=== PATIENT | male | born 1975 | race Caucasian/White ===

== ENCOUNTER 2023-03-26 12:11 | Emergency (ER) | payer OTHER, SELFPAY ==
[2023-03-26 12:20] VITALS: BP 116/97; PULSE 68; RESP 20; TEMP 36.6; O2SAT 98; BMI 34.4
--- NOTE | 2023-03-26 12:26 | PC.NURSE ---
SUPERFICIAL PUNCTURE WOUND TO BOTTOM OF RIGHT FOOT. BLEEDING CONTROLLED
--- NOTE | 2023-03-26 12:54 | XR_ITS ---
The [address] [address] Patient Name: PAMELA PERKINS MRN: [id number] date: 1975 Sex: M Assigned Patient Location: ER Current Patient Location: ED.MAIN Accession/Order Number: [id number] Exam Date: 03/26/2023 12:56 Report Date: 03/26/2023 13:27 At the request of: THUAN ALMONTE Procedure: XR foot RT min 3V EXAM: XR foot RT min 3V HISTORY: stepped on glass, laceration COMPARISON: None. TECHNIQUE: 3 views right foot. FINDINGS: No fracture or dislocation. No radiopaque foreign body is seen. Slight soft tissue edema laterally. Minimal degenerative change of the great toe MTP joint. Small plantar calcaneal enthesophyte. XR/XR foot RT min 3V IMPRESSION: Mild edema without fracture or radiopaque foreign body right foot. Electronically authenticated by: ASTRID SANDOVAL Date: 03/26/2023 13:27
--- NOTE | 2023-03-26 13:08 | ED.LOWEXI1 ---
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 He said that he felt pain in the right foot while walking barefoot at home. He pulled out a piece of glass from the bottom of the foot. Bleeding was apparently worse immediately after the injury but has lessened by now. His tetanus is up to date. Related Data Previous Rx's Medication Instructions Recorded cephalexin 500 mg capsule 500 mg PO QID 7 days #28 caps 03/26/23 Allergies Allergy/AdvReac Type Severity Reaction Status Date / Time No Known Drug Allergies Allergy Verified 03/26/23 12:24 Exam Narrative Exam Narrative: Nurses notes and vital signs reviewed and patient is not hypoxic. afebrile General: Well-appearing and in no apparent distress. Skin: Warm, dry, no pallor noted. Cardiovascular: no peripheral perfusion. Respiratory: No accessory muscle use or respiratory distress. Musculoskeletal: 3mm linear puncture wound to the plantar surface of the right foot. I cannot see or palpate any foreign material in or around the puncture wound. Right foot with normal ROM, no erythema or streaking. no lower extremity edema/swelling Neurological: A&O x4. Moves all extremities. Sensation intact. Psychiatric: Cooperative and interactive. Normal mood and affect. Constitutional Vital Signs, click to edit/add: Last Vital Signs Temp 98 F 03/26/23 12:20 Pulse 68 03/26/23 12:20 Resp 20 03/26/23 12:20 BP 116/97 H 03/26/23 12:20 Pulse Ox 98 03/26/23 12:20 O2 Del Method Room Air 03/26/23 12:20 Course Vital Signs Vital signs: Vital Signs Temperature 98 F 03/26/23 12:20 Pulse Rate 68 03/26/23 12:20 Respiratory Rate 20 03/26/23 12:20 Blood Pressure 116/97 H 03/26/23 12:20 Pulse Oximetry 98 03/26/23 12:20 Oxygen Delivery Method Room Air 03/26/23 12:20 Temperature 98 F 03/26/23 12:20 Pulse Rate 68 03/26/23 12:20 Respiratory Rate 20 03/26/23 12:20 Blood Pressure 116/97 H 03/26/23 12:20 Pulse Oximetry 98 03/26/23 12:20 Oxygen Delivery Method Room Air 03/26/23 12:20 MDM - Extremity Injury (Lower) MDM Narrative Medical decision making narrative: bleeding controlled - I applied a bandage to the wound after I cleaned it with soap and water. Xrays of the right foot were unremarkable. Patient discharged home with prescription for keflex and instructed to keep the wound covered, clean and dry. Imaging Data xr foot: Attestation: I personally reviewed and interpreted this imaging study as follows: My impression: LEFT FOOT XRAYS, 4V - no fracture or foreign material Discharge Plan Discharge Chief Complaint: Extremity Injury, Lower Clinical Impression: Puncture wound of foot Patient Disposition: Home, Self-Care Time of Disposition Decision: 13:14 Prescriptions / Home Meds: New cephalexin 500 mg capsule 500 mg PO QID 7 Days Qty: 28 0RF Instructions: Puncture Wound in the Foot (ED) Stand Alone Forms: Portal Instructions Referrals: Shun Encarnacion MD [Primary Care Provider] - 1 week
== END 2023-03-26 13:38 | disposition home or self-care (01) ==
PROVIDERS: Emergency Provider Emergency Medicine; PCP Family Medicine
DX: S91.331A Puncture wound without foreign body, right foot, initial encounter (principal); W25.XXXA Contact with sharp glass, initial encounter
CPT/HCPCS: 73630; 99283

== ENCOUNTER 2024-06-20 12:52 | Outpatient (RCR) | payer OTHER, SELFPAY | END 2024-07-11 10:03 | disposition home or self-care (01) | LOC: PT 12:52 | PROVIDERS: PCP Family Medicine; Visit Provider Family Medicine | DX: M54.50 Low back pain, unspecified (principal) | CPT/HCPCS: 97012; 97110; 97113; 97140; 97162 ==

== ENCOUNTER 2024-10-18 09:24 | Outpatient (OUT) | payer MEDICAID, SELFPAY ==
--- OUTSIDE RECORDS SUMMARY | 2024-10-18 09:45 | XMS_ITS | CCD ---
Author Organization [facility] Care Team Providers Care Radio Frequency Design Engineer Name Role Phone POLA, DR SHUN Power Primary Care Unavailable ADDY, DR HANNAH Weaver Admitting Unavailable ADDY, DR HANNAH Weaver Attending Unavailable ADDY, DR HANNAH Weaver Consulting Unavailable NADERER, DR SHUN Power Admitting Unavailable NADANTONELLA, DR SHUN Power Attending Unavailable POLA, DR SHUN Power Primary Care Unavailable POLA, DR SHUN Power Consulting Unavailable POLA, DR SHUN Power Primary Care Unavailable ADDY, DR HANNAH Weaver Admitting Unavailable ADDY, DR HANNAH Weaver Attending Unavailable ADDY, DR HANNAH Weaver Consulting Unavailable DANIELA, PATI Consulting Unavailable NADJORDONR, DR SHUN Power Primary Care Unavailable JARON, ASÚL Admitting Unavailable JARON, SAÚL Attending Unavailable JARON, SAÚL Consulting Unavailable Shun Escalona MD Primary Care Provider [phone] SHUN ESCALONA Attending Unavailable NADERER, SHUN Attending Unavailable RANJEETR, SHUN Attending Unavailable POLA, SHUN Attending Unavailable Medications Current Medications Medication Drug Class(es) Dates Sig (Normalized) Sig (Original) acetaminophen 325 mg / HYDROcodone bitartrate 5 mg oral tablet (2 sources) Opioid Agonist Start: 05-24-2024 End: 05-31-2024 take 1 tablet by mouth four times daily as needed for pain HYDROcodone-acetamin ophen ([place]) 5-325 MG tablet Indications: 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 pain Take 1 tablet by mouth 4 (four) times a day as needed for severe pain for up to 7 days 28 tablet 05/24/2024 05/31/2024 Active acetaminophen 325 mg / oxyCODONE hydrochloride 5 mg oral tablet (9 sources) Opioid Agonist Start: 10-02-2024 End: 10-24-2024 take 1 tablet by mouth four times daily as needed for pain oxyCODONE-acetaminop hen (Percocet) 5-325 MG tablet Indications: 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 pain Take 1 tablet by mouth 4 (four) times a day as needed for moderate pain or severe pain for up to 15 days 60 tablet 10/09/2024 10/24/2024 Active Start: 09-10-2024 End: 09-17-2024 take 1 tablet by mouth four times daily as needed for pain oxyCODONE-acetaminophen (Percocet) 5-325 MG tablet Indications: 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 pain Take 1 tablet by mouth 4 (four) times a day as needed for moderate pain or severe pain for up to 7 days 28 tablet 09/10/2024 09/17/2024 Active Start: 08-20-2024 End: 08-27-2024 take 1 tablet by mouth four times daily as needed for pain oxyCODONE-acetaminophen (Percocet) 5-325 MG tablet Indications: 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 pain Take 1 tablet by mouth 4 (four) times a day as needed for moderate pain or severe pain for up to 7 days 28 tablet 08/20/2024 08/27/2024 Active Start: 07-18-2024 End: 08-07-2024 take 1 tablet by mouth four times daily as needed for pain oxyCODONE-acetaminophen (Percocet) 5-325 MG tablet Indications: 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 pain Take 1 tablet by mouth 4 (four) times a day as needed for moderate pain or severe pain for up to 7 days 28 tablet 07/31/2024 08/07/2024 Active baclofen 20 mg oral tablet (3 sources) gamma-Aminobutyric Acid-ergic Agonist Start: 03-20-2024 End: 05-24-2024 take 1 tablet by mouth three times daily as needed for muscle spasms baclofen (Lioresal) 20 MG tablet Indications: DDD (degenerative disc disease), cervical Take 1 tablet (20 mg) by mouth 3 (three) times a day as needed for muscle spasms 90 tablet 2 03/20/2024 05/24/2024 Discontinued Blood Glucose Monitoring Suppl (Blood Glucose Monitor System) w/Device kit (14 sources) Start: 03-19-2024 Blood Glucose Monitoring Suppl (Blood Glucose Monitor System) w/Device kit Indications: Type 2 diabetes mellitus with hyperglycemia, without long-term current use of insulin ([facility]) 1 each Daily 1 kit 03/19/2024 Active celecoxib 200 mg oral capsule (14 sources) Nonsteroidal Anti-inflammatory Drug Start: 05-24-2024 End: 10-09-2024 take 1 capsule by mouth once daily at mealtime celecoxib (CeleBREX) 200 MG capsule Indications: 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 pain TAKE 1 CAPSULE BY MOUTH DAILY WITH FOOD 30 capsule 3 10/09/2024 Active glipiZIDE 10 mg oral tablet (14 sources) Sulfonylurea Start: 04-13-2024 End: 04-13-2025 take 1 tablet by mouth once daily glipiZIDE (Glucotrol) 10 MG tablet Indications: Type 2 diabetes mellitus with hyperglycemia, without long-term current use of insulin ([facility]) Take 1 tablet (10 mg) by mouth Daily 30 tablet 11 04/13/2024 04/13/2025 Active lisinopril 20 mg oral tablet (14 sources) Angiotensin Converting Enzyme Inhibitor Start: 05-21-2024 take 1 tablet by mouth once daily lisinopril 20 MG tablet Indications: Essential hypertension, benign ([facility]) Take 1 tablet (20 mg) by mouth Daily 30 tablet 11 05/21/2024 Active 24 hr metFORMIN hydrochloride 500 mg extended release oral tablet (14 sources) Biguanide Start: 01-17-2024 End: 06-06-2025 take 1 tablet by mouth once daily metFORMIN XR (Glucophage-XR) 500 MG 24 hr tablet Indications: Type 2 diabetes mellitus with hyperglycemia, without long-term current use of insulin ([facility]) Take 1 tablet (500 mg) by mouth Daily 30 tablet 11 06/06/2024 06/06/2025 Active nabumetone 500 mg oral tablet (3 sources) Nonsteroidal Anti-inflammatory Drug Start: 08-03-2023 End: 05-24-2024 take 1 tablet by mouth in the morning nabumetone (Relafen) 500 MG tablet Take 500 mg by mouth in the morning and 500 mg before bedtime. 08/03/2023 05/24/2024 Discontinued PARoxetine hydrochloride 20 mg oral tablet (15 sources) Serotonin Reuptake Inhibitor Start: 07-18-2024 take 1 tablet by mouth in the morning PARoxetine (Paxil) 20 MG tablet Indications: MDD (major depressive disorder), recurrent episode, moderate (CMS/HCC) Take 1 tablet (20 mg) by mouth in the morning. 30 tablet 5 07/18/2024 Active Start: 05-24-2024 End: 07-18-2024 take 1 tablet by mouth in the morning PARoxetine (Paxil) 10 MG tablet Indications: MDD (major depressive disorder), recurrent episode, moderate (CMS/HCC) Take 1 tablet (10 mg) by mouth in the morning. 30 tablet 5 05/24/2024 07/18/2024 Discontinued (Reorder) sertraline 25 mg oral tablet (3 sources) Serotonin Reuptake Inhibitor Start: 03-20-2024 End: 05-24-2024 take 1 tablet by mouth once daily sertraline (Zoloft) 25 MG tablet Indications: MDD (major depressive disorder), recurrent episode, moderate (CMS/HCC) Take 1 tablet (25 mg) by mouth Daily 30 tablet 5 03/20/2024 05/24/2024 Discontinued tiZANidine 4 mg oral tablet (14 sources) Central alpha-2 Adrenergic Agonist Start: 07-24-2024 End: 10-09-2024 take 1 tablet by mouth every six hours as needed for muscle spasms tiZANidine (Zanaflex) 4 MG tablet Indications: 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 pain TAKE 1 TABLET BY MOUTH EVERY 6 HOURS NEEDED FOR MUSCLE SPASMS 30 tablet 3 10/09/2024 Active Start: 05-24-2024 take 1 tablet by ronnie th every six hours for muscle spasms tiZANidine (Zanaflex) 4 MG tablet Indications: 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 pain Take 1 tablet (4 mg) by mouth every 6 (six) hours if needed for muscle spasms 30 tablet 2 05/24/2024 Active Problems Active Problems Problem Classification Problem Date Documented Date Episodic/Chronic Anxiety disorders (20 sources) Generalized anxiety disorder; Translations: [Generalized anxiety disorder] Onset: 03-19-2024 03-19-2024 Chronic Diabetes mellitus with complications (20 sources) Type 2 diabetes mellitus with hyperglycemia; Translations: [Hyperglycemia due to type 2 diabetes mellitus] Onset: 12-09-2021 Chronic Disorders of lipid metabolism (14 sources) Dyslipidemia; Translations: [Hyperlipidemia, unspecified] Onset: 03-19-2024 03-19-2024 Chronic Esophageal disorders (15 sources) Gastro-esophageal reflux disease without esophagitis; Translations: [Gastroesophageal reflux disease] Onset: 08-18-2021 03-19-2024 Chronic Essential hypertension (20 sources) Essential (primary) hypertension; Translations: [Benign essential hypertension] Onset: 08-18-2021 03-19-2024 Chronic Mood disorders (20 sources) Moderate recurrent major depression; Translations: [Major depressive disorder, recurrent, moderate] Onset: 03-19-2024 03-19-2024 Chronic Nutritional deficiencies (14 sources) Vitamin D deficiency; Translations: [Vitamin D deficiency, unspecified] Onset: 03-19-2024 03-19-2024 Chronic Spondylosis; intervertebral disc disorders; other back problems (20 sources) Degeneration of lumbar intervertebral disc; Translations: [DDD (degenerative disc disease), lumbar] Onset: 03-19-2024 03-19-2024 Chronic Unclassified (2 sources) CONTACT W/AND (SUSP) EXPOS COVID-19; Translations: [CONTACT W/AND (SUSP) EXPOS COVID-19] Onset: 06-02-2022 Viral infection (1 source) COVID-19; Translations: [COVID-19] Onset: 06-02-2022 Past or Other Problems Problem Classification Problem Date Documented Da te Episodic/Chronic E Codes: Cut/pierceb (1 source) Contact with knife, initial encounter; Translations: [CONTACT WITH KNIFE INITIAL ENC] Onset: 12-30-2021 Episodic Immunizations and screening for infectious disease (1 source) Encounter for immunization; Translations: [ENCOUNTER FOR IMMUNIZATION] Onset: 12-30-2021 Episodic Nonspecific chest pain (3 sources) Precordial pain; Translations: [PRECORDIAL PAIN] Onset: 08-16-2021 Episodic Open wounds of extremities (4 sources) Puncture wound without foreign body of left hand, initial encounter; Translations: [PUNCTURE WOUND W/O FB LT HAND INIT] Onset: 12-28-2021 Episodic Other aftercare (1 source) Other chcf (current) drug therapy; Translations: [OTH RETIREMENT CURRENT DRUG THERAPY] Onset: 12-30-2021 Episodic Other aftercare (1 source) terminal press operator (current) use of oral hypoglycemic drugs; Translations: [FORENSIC ACCOUNTANT USE ORAL HYPOGLYCEMIC DX] Onset: 12-30-2021 Episodic Unclassified (1 source) CONTACT W/AND (SUSP) EXPOS COVID-19; Translations: [CONTACT W/AND (SUSP) EXPOS COVID-19] Onset: 06-01-2022 Results Test Name Value Interpretation Reference Range Facility Covid-19 PCR (CVDTB)on 05-15 SARS-CoV-2 (COVID-19) RNA YVONNE+probe Ql (Unsp spec) Detected Critically abnormal NOT DETECTED [facility] Comment on above: Result Comment: This test is not yet approved or cleared by the [place] FDA. When there are no FDA-approved or cleared tests available, and other criteria are met, FDA can make tests available under an emergency access mechanism called an Emergency Use Authorization (EUA). The EUA for this test is supported by the [place] of Health and Human Service's declaration that circumstances exist to justify the emergency use of in vitro diagnostics for the detection and/or diagnosis of the virus that causes COVID-19. This EUA will remain in effect for the duration of the COVID-19 declaration justifying emergency of IVDs, unless it is terminated or revoked by the FDA (after which the test may no longer be used). Performed By: #### C VDTB #### [facility] [address] [place] [address] Dr. Abigail Flores GLYCOHEMOGLOBIN A1Con 2021 ADA RECOMMENDATION SEE BELOW Normal [facility] Comment on above: Result Comment: ADA RECOMMENDED LIMIT 4.0 - 6.0 ADA THERAPEUTIC TARGET < 7.0 ACTION SUGGESTED > 7.0 Performed By: #### A 1C #### [facility] [address] [address] [address] Abigail Flores Glucose [Mass/Vol] 246 mg/dL Normal [facility] Comment on above: Performed By: #### A 1C #### [facility] [address] [place], [place] [address] Dr. Abigail Flores HbA1c (Bld) [Mass fraction] 10.2 % Critically high 4.5-6.2 [facility] Comment on above: Performed By: #### A 1C #### [facility] [address] [place] [address] Dr. Abigail Flores CARDIAC HANNAH ADMITon 022 CK [Catalytic activity/Vol] 92 U/L Normal 55-170 [facility] Comment on above: Performed By: #### C EDWARDOM, CMP #### [facility] [address] [place] [address] Dr. Abigail Flores CK.MB [Mass/Vol] 1.09 ng/mL Normal <=2.37 [facility] Comment on above: Performed By: #### C CALLIE, CMP #### [facility] [address] [place] [address] Dr. Abigail Flores HSTROP 6.1 pg/mL Normal 4.0-42.2 [facility] Comment on above: Result Comment: CUT- OFF POINTS HAVE BEEN ESTABLISHED BASED ON THE FOURTH UNIVERSAL DEFINITIONS OF MYOCARDIAL INFARCTION. THE UPPER REFERENCE LIMIT (URL) OF TROPONIN, DEFINED THE 99TH PERCENTILE OF cTnI DISTRIBUTION IN A REFERENCE POPULATION, HAS BEEN CONFIRMED THE DECISION THRESHOLD FOR SC DIAGNOSIS. Performed By: #### C CALLIE, CMP #### [facility] [address] [place] [address] Dr. Abigail Flores KELLY 61.0 ng/mL Normal <=121.0 [facility] Comment on above: Performed By: #### C CALLIE, CMP #### [facility] [address] [place] [address] Dr. Abigail Flores CBC AUTO DIFFon 08-16-2021 BASO # 0.1 103/ul Normal 0.0-0.1 [facility] Comment on above: Performed By: #### C BC #### [facility] [address] [place] [address] Dr. Abigail Flores Basophils/100 WBC (Bld) 1.0 % Normal 0.2-2.0 [facility] Comment on above: Performed By: #### C BC #### [facility] [address] [place] [address] Dr. Abigail Flores EO # 0.3 103/ul Normal 0.0-0.7 [facility] Comment on above: Performed By: #### C BC #### [facility] [address] [place] [address] Dr. Abigail Flores Eosinophils/100 WBC (Bld) 3.3 % Normal 0.9-7.0 [facility] Comment on above: Performed By: #### C BC #### [facility] [address] [place] [address] Dr. Abigail Flores Erythrocyte distribution width (RBC) [Ratio] 12.4 % Normal 11.0-15.0 [facility] Comment on above: Performed By: #### C BC #### [facility] [address] [place] [address] Dr. Abigail Flores Hematocrit (Bld) [Volume fraction] 49.5 % Normal 42.0-54.0 [facility] Comment on above: Performed By: #### C BC #### [facility] [address] [place] [address] Dr. Abigail Flores Hemoglobin (Bld) [Mass/Vol] 16.6 g/dL Normal 14.0-18.0 [facility] Comment on above: Performed By: #### C BC #### [facility] [address] [place] [address] Dr. Abigail Flores IG # 0.03 10e3/ul Normal 0.00-0.03 [facility] Comment on above: Performed By: #### C BC #### [facility] [address] [place] [address] Dr. Abigail Flores IG % 0.4 % Normal 0.0-0.5 [facility] Comment on above: Performed By: #### C BC #### [facility] [address] [place] [address] Dr. Abigail Flores LYMPH # 3.3 103/ul Normal 1.2-3.8 [facility] Comment on above: Performed By: #### C BC #### [facility] [address] [place] [address] Dr. Abigail Flores Lymphocytes/100 WBC (Bld) 41.5 % Normal 20.5-60.0 [facility] Comment on above: Performed By: #### C BC #### [facility] [address] [place] [address] Dr. Abigail Flores MANUAL DIFF REQ NO Normal [facility] Comment on above: Performed By: #### C BC #### [facility] [address] [place] [address] Dr. Abigail Flores MCH (RBC) [Entitic mass] 29.0 pg Normal 25.9-34.0 [facility] Comment on above: Performed By: #### C BC #### [facility] [address] [place] [address] Dr. Abigail Flores MCHC (RBC) [Mass/Vol] 33.5 g/dL Normal 29.9-35.2 [facility] Comment on above: Performed By: #### C BC #### [facility] [address] [place] [address] Dr. Abigail Flores MCV (RBC) [Entitic vol] 86.5 fL Normal 80.0-94.0 [facility] Comment on above: Performed By: #### C BC #### [facility] [address] [place] [address] Dr. Abigail Flores MONO # 0.5 103/ul Normal 0.3-0.8 [facility] Comment on above: Performed By: #### C BC #### [facility] [address] [place] [address] Dr. Abigail Flores Monocytes/100 WBC (Bld) 5.9 % Normal 1.7-12.0 [facility] Comment on above: Performed By: #### C BC #### [facility] [address] [place] [address] Dr. Abigail Flores NEUT # 3.8 103/ul Normal 1.4-6.5 [facility] Comment on above: Performed By: #### C BC #### [facility] [address] [place] [address] Dr. Abigail Flores Neutrophils/100 WBC (Bld) 47.9 % Normal 43.0-75.0 [facility] Comment on above: Performed By: #### C BC #### [facility] [address] [address] [address] Abigail Flores Platelet mean volume (Bld) [Entitic vol] 9.9 fL Normal 9.5-13.5 [facility] Comment on above: Performed By: #### C BC #### [facility] [address] [place] [address] Dr. Abigail Flores PLT 217 103/ul Normal 150-450 [facility] Comment on above: Performed By: #### C BC #### [facility] [address] [place] [address] Dr. Abigail Flores RBC 5.72 106/ul Normal 4.70-6.10 [facility] Comment on above: Performed By: #### C BC #### [facility] [address] [place] [address] Dr. Abigail Flores WBC 8.0 103/ul Normal 4.0-11.0 [facility] Comment on above: Performed By: #### C BC #### [facility] [address] [place] [address] Dr. Abigail Flores PROF 14(COMP METB)on 022 Albumin [Mass/Vol] 3.8 g/dL Normal 3.5-5.0 [facility] Comment on above: Performed By: #### C CALLIE, CMP #### [facility] [address] [place] [address] Dr. Abigail Flores Albumin/Globulin [Mass ratio] 1.0 {ratio} Normal [facility] Comment on above: Performed By: #### C MADM, CMP #### [facility] [address] [place] [address] Dr. Abigail Flores ALP [Catalytic activity/Vol] 113 U/L Normal 38-126 [facility] Comment on above: Performed By: #### C MADM, CMP #### [facility] [address] [place] [address] Dr. Abigail Flores ALT [Catalytic activity/Vol] 35 U/L Normal 21-72 [facility] Comment on above: Performed By: #### C MADM, CMP #### [facility] [address] [address] [address] Abigail Flores Anion gap [Moles/Vol] 15.0 mmol/L Normal [facility] Comment on above: Performed By: #### C MADM, CMP #### [facility] [address] [address] [address] Abigail Flores AST [Catalytic activity/Vol] 8 U/L Critically low 17-59 [facility] Comment on above: Performed By: #### C MADM, CMP #### [facility] [address] [address] [address] Abigail Flores Bilirubin [Mass/Vol] 0.5 mg/dL Normal 0.2-1.3 [facility] Comment on above: Performed By: #### C MADM, CMP #### [facility] [address] [place] [address] Dr. Abigail Flores Calcium [Mass/Vol] 9.2 mg/dL Normal 8.4-10.2 [facility] Comment on above: Performed By: #### C MADM, CMP #### [facility] [address] [place] [address] Dr. Abigail Flores Chloride [Moles/Vol] 100 mmol/L Normal 98-107 [facility] Comment on above: Performed By: #### C MADM, CMP #### [facility] [address] [address] [address] Abigail Flores CO2 [Moles/Vol] 25.2 mmol/L Normal 22.0-30.0 [facility] Comment on above: Performed By: #### C MADM, CMP #### [facility] [address] [place] [address] Dr. Abigail Flores Creatinine [Mass/Vol] 0.98 mg/dL Normal 0.66-1.25 [facility] Comment on above: Performed By: #### C MADM, CMP #### [facility] [address] [address] [address] Abigail Flores EGFR-AF SWISS >60 Normal >=60 [facility] Comment on above: Performed By: #### C MADM, CMP #### [facility] [address] [address] [address] Abigail Flores EGFR-NON AF SWISS >60 Normal >=60 [facility] Comment on above: Performed By: #### C MADM, CMP #### [facility] [address] [address] [address] Abigail Flores Globulin (S) [Mass/Vol] 3.7 g/dL Normal [facility] Comment on above: Performed By: #### C MADM, CMP #### [facility] [address] [place] [address] Dr. Abigail Flores Glucose [Mass/Vol] 350 mg/dL Critically high 74-106 [facility] Comment on above: Performed By: #### C MADM, CMP #### [facility] [address] [place] [address] Dr. Abigail Flores Potassium [Moles/Vol] 4.2 mmol/L Normal 3.4-5.0 [facility] Comment on above: Performed By: #### C MADM, CMP #### [facility] [address] [place] [address] Dr. Abigail Flores Protein [Mass/Vol] 7.5 g/dL Normal 6.1-8.2 [facility] Comment on above: Performed By: #### C MADM, CMP #### [facility] [address] [place] [address] Dr. Abigail Flores Sodium [Moles/Vol] 136 mmol/L Critically low 137-145 [facility] Comment on above: Performed By: #### C MADM, CMP #### [facility] [address] [place] [address] Dr. Abigail Flores Urea nitrogen [Mass/Vol] 16.0 mg/dL Normal 9.0-20.0 [facility] Comment on above: Performed By: #### C MADM, CMP #### [facility] [address] [place] [address] Dr. Abigail Flores Urea nitrogen/Creatinine [Mass ratio] 16.3 mg/mg Normal [facility] Comment on above: Performed By: #### C [facility] #### [facility] [address] [address] [address] Abigail Flores XR CHEST 1 Von 08-16-2021 XR CHEST 1 V EXAM: XR CHEST 1 V 08/16/2021 2:14 AM EST [id number] CLINICAL STATEMENT: CHEST PAIN, UNSPECIFIED COMPARISON: No prior studies are available at the time of dictation. TECHNIQUESingle AP radiograph of the chest is submitted. FINDINGS: There is no acute airspace disease. The cardiac silhouette is normal. The costophrenic recesses are sharp. No pneumothorax. The bony elements are unremarkable. IMPRESSION: No acute cardiopulmonary process. FOLLOW-UP: Follow-up as clinically indicated. Electronically authenticated by: PATI SUAREZ Date: 2021-08-16 02:53 Normal [facility] Vital Signs Date Time Vital Sign Value Performing Clinician Faci lity 09-18-2024 10:09-0500 Body height 177.8 cm Shun Escalona MD Work Phone: [facility] 09-18-2024 10:09-0500 Body mass index (BMI) [Ratio] 32.43 kg/m2 Shun Escalona MD Work Phone: [facility] 09-18-2024 10:09-0500 Body temperature 97.5 [degF] Shun Escalona MD Work Phone: [facility] 09-18-2024 10:09-0500 Body weight 102.51 kg Shun Escalona MD Work Phone: [facility] 09-18-2024 10:09-0500 Diastolic blood pressure 70 mm[Hg] Shun Escalona MD Work Phone: [facility] 09-18-2024 10:09-0500 Heart rate 104 /min Shun Escalona MD Work Phone: [facility] 09-18-2024 10:09-0500 Respiratory rate 18 /min Shun Escalona MD Work Phone: [facility] 09-18-2024 10:09-0500 SaO2% (BldA) [Mass fraction] 98 % Shun Escalona MD Work Phone: [facility] 09-18-2024 10:09-0500 Systolic blood pressure 144 mm[Hg] Shun Escalona MD Work Phone: [facility] 07-18-2024 10:37-0500 Body height 180.3 cm Shun Escalona MD Work Phone: [facility] 07-18-2024 10:37-0500 Body mass index (BMI) [Ratio] 31.66 kg/m2 Shun Escalona MD Work Phone: [facility] 07-18-2024 10:37-0500 Body temperature 96.21 [degF] Shun Escalona MD Work Phone: [facility] 07-18-2024 10:37-0500 Body weight 102.97 kg Shun Escalona MD Work Phone: [facility] 07-18-2024 10:37-0500 Diastolic blood pressure 80 mm[Hg] Shun Escalona MD Work Phone: [facility] 07-18-2024 10:37-0500 Heart rate 91 /min Shun Escalona MD Work Phone: [facility] 07-18-2024 10:37-0500 Respiratory rate 18 /min Shun Escalona MD Work Phone: [facility] 07-18-2024 10:37-0500 SaO2% (BldA) [Mass fraction] 99 % Shun Escalona MD Work Phone: [facility] 07-18-2024 10:37-0500 Systolic blood pressure 134 mm[Hg] Shun Escalona MD Work Phone: [facility] 05-24-2024 09:16-0400 Body height 177.8 cm Shun Escalona MD Work Phone: [facility] 05-24-2024 09:16-0400 Body mass index (BMI) [Ratio] 33 kg/m2 Shun Escalona MD Work Phone: [facility] 05-24-2024 09:16-0400 Body temperature 97.81 [degF] Shun Escalona MD Work Phone: [facility] 05-24-2024 09:16-0400 Body weight 104.33 kg Shun Escalona MD Work Phone: [facility] 05-24-2024 09:16-0400 Diastolic blood pressure 82 mm[Hg] Shun Escalona MD Work Phone: [facility] 05-24-2024 09:16-0400 Heart rate 94 /min Shun Escalona MD Work Phone: [facility] 05-24-2024 09:16-0400 Respiratory rate 18 /min Shun Escalona MD Work Phone: [facility] 05-24-2024 09:16-0400 SaO2% (BldA) [Mass fraction] 95 % Shun Escalona MD Work Phone: [facility] 05-24-2024 09:16-0400 Systolic blood pressure 136 mm[Hg] Shun Escalona MD Work Phone: [facility] Encounters Encounter Date Encounter Type Care Provider Facility Start: 10-09-2024 End: 10-09-2024 Refill Shun Escalona MD Work Phone: [facility] Comment on above: 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 discogenic back pain and lower extremity pain Start: 10-02-2024 End: 10-02-2024 Orders Only Shun Escalona MD Work Phone: [facility] Comment on above: 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 discogenic back pain and lower extremity pain Start: 09-18-2024 End: 09-18-2024 Bamboo flowsheet Shun Escalona MD Work Phone: [facility] Start: 09-18-2024 End: 09-18-2024 Bamboo flowsheet Shun Escalona MD Work Phone: [facility] Start: 09-18-2024 End: 09-18-2024 Office outpatient visit 25 minutes Shun Escalona MD Work Phone: [facility] Comment on above: Type 2 diabetes yoav itus with hyperglycemia, without long-term current use of insulin (CMS/HCC) (Primary Dx); Essential hypertension, benign (CMS/HCC); 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 pain; MDD (major depressive disorder), recurrent episode, moderate (CMS/HCC); Generalized anxiety disorder (CMS/HCC) Start: 09-18-2024 End: 09-18-2024 ambulatory SHUN ESCALONA Not Available Start: 09-09-2024 End: 09-10-2024 Refill Shun Escalona MD Work Phone: [facility] Comment on above: 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 discogenic back pain and lower extremity pain Start: 08-19-2024 End: 08-20-2024 Refill Shun Escalona MD Work Phone: [facility] Comment on above: 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 discogenic back pain and lower extremity pain Start: 07-31-2024 End: 07-31-2024 Refill Shun Escalona MD Work Phone: [facility] Comment on above: 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 discogenic back pain and lower extremity pain Start: 07-18-2024 End: 07-18-2024 Bamboo flowsheet Shun Escalona MD Work Phone: [facility] Start: 07-18-2024 End: 07-18-2024 Bamboo flowsheet Shun Escalona MD Work Phone: [facility] Start: 07-18-2024 End: 07-18-2024 Office outpatient visit 25 minutes Shun Escalona MD Work Phone: [facility] Comment on above: Type 2 diabetes yoav itus with hyperglycemia, without long-term current use of insulin (CMS/HCC) (Primary Dx); Essential hypertension, benign (CMS/HCC); 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 pain; MDD (major depressive disorder), recurrent episode, moderate (CMS/HCC); Generalized anxiety disorder (CMS/HCC) Start: 07-18-2024 End: 07-18-2024 ambulatory SHUN ESCALONA Not Available Start: 05-24-2024 [facility] Start: 05-24-2024 End: [facility]-24-20[facility] Start: 05-24-2024 End: 05-24-2024 Office outpatient visit 25 minutes Shun Escalona MD Work Phone: [facility] Comment on above: Type 2 diabetes yoav itus with hyperglycemia, without long-term current use of insulin (CMS/HCC) (Primary Dx); Essential hypertension, benign (CMS/HCC); MDD (major depressive disorder), recurrent episode, moderate (CMS/HCC); Generalized anxiety disorder (CMS/HCC); 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 pain Start: 05-24-2024 End: 05-24-2024 ambulatory HSUN ESCALONA Not Available Start: 03-19-2024 Patient encounter procedure Gavin Escalona MD Work Phone: [facility] Start: 03-19-2024 End: 03-19-2024 ambulatory SHUN ESCALONA Not Available Start: 06-01-2022 End: 06-01-[address] SHUN ESCALONA Facility:[facility] Start: 12-28-2021 End: 12-28-[address] SHUN ESCALONA Facility:[facility] Start: 12-09-2021 End: 12-10-[address] SHUN ESCALONA Facility:[facility] Start: 08-16-2021 End: 08-16-[address] SHUN ESCALONA Facility:[facility] Plan of Treatment Date Care Activity Detail Author Start: 12-22-2024 Screening for malign ant neoplasm of colon [facility] Start: 12-18-2024 End: 12-18-2024 Patient encounter procedure 12/18/2024 10:00 AM EDT Office Visit [facility] [address] [place] [address] Shun Escalona MD [address] [place] [id number] [facility] Start: 09-18-2024 End: 09-18-2024 Patient encounter procedure [facility] Comment on above: Arrived Start: 07-18-2024 End: 07-18-2024 Patient encounter procedure 07/18/2024 10:45 AM EST Office Visit [facility] [address] [place] [address] Shun Escalona MD [address] [place] [phone] Arrived [facility] Comment on above: Arrived Start: 07-06-2024 End: 07-06-2024 Patient encounter procedure 07/06/2024 10:00 AM EST Office Visit [facility] [address] [place] [address] Shun Escalona MD [address] [place] [phone] [facility] Start: 05-24-2024 End: 05-24-2024 Patient encounter procedure 05/24/2024 9:15 AM EDT Office Visit [facility] [address] [place] [address] Shun Escalona MD [address] [place] [phone] Arrived [facility] Comment on above: Arrived Start: 04-15-2024 Influenza vaccination Influenza Vacc ine (#1) [facility] Start: 1995 Urine screening for protein Diabetes: Urine Protein Screening [facility] Start: 1986 Glaucoma screening Diabetes: R etinopathy Screening [facility] Start: 1976 Hemoglobin A1c measurement Diabetes: Hemoglobin A1C [facility] Start: 1976 Screening for malign ant neoplasm of colon [facility] Payers Date Payer Category Payer Medicaid [id number] 1976 Unknown [id number] 1976 Unknown [id number] [id number] [id number] 1976 Unknown [id number] [id number] [id number] 1976 Unknown [id number] [id number] [id number] 1976 Unknown [id number] 2.16.84 [id number] 1976 Unknown [id number] [id number] [id number] 1976 Unknown [id number] [id number] 1959 Unknown [id number] Social History Date Type Detail Facility Start: 03-19-2024 Tobacco smoking status NHIS Ex-smoke r [facility] Start: 08-15-2014 End: 08-15-1999 History of tobacco use Current smoker [facility] Start: 08-15-2014 End: 08-15-1999 History of tobacco use Cigarette Smoker [facility] Start: 03-19-2024 Tobacco use and exposure Smoke less tobacco non-user [facility] Start: 03-19-2024 End: 05-23-2024 History of Social function [facility] Start: 03-19-2024 End: 05-23-2024 Tobacco use panel [facility] Start: 1976 Sex assigned at Not on file [facility] Start: 04-02-2024 Gender identity Identifies as male gender (finding) [facility] How often do you nee d to have someone help you when you read instructions, pamphlets, or other written material from your doctor or pharmacy [SILS] Sometimes [facility] Do you belong to any clubs or organizations such as christian groups, unions, fraternal or athletic groups, or school groups? No [facility] Are you now , , , , never or living with a partner? Living with partner [facility] How often to you hav e a drink containing alcohol? Monthly or less [facility] How many standard dr inks containing alcohol do you have on a typical day? 1 or 2 [facility] How often do you hav e 6 or more drinks on 1 occasion? Never [facility] Do you feel stress - tense, restless, nervous, or anxious, or unable to sleep at night because your mind is troubled all the time - these days [OSQ] Very much [facility] Medical Equipment Procedure Code Equipment Code Equipment Origin al Text Equipment Identifier Dates 1 each by In Vit ro route Daily [id number] Start: 03-19-2024 1 each Daily [id number] Start: 03-19-2024 Clinical Notes 05-24-2024 to 09-18-2024 Shun Escalona MD - 09/18/2024 10:42 AM Clyde Escalona MD - 09/18/2024 10:42 AM Clyde Escalona MD - 09/18/2024 10:42 AM Clyde Escalona MD - 09/18/2024 10:42 AM EST Note Date & Type Note Facility 09-18-2024 History of Presen t illness Narrative Associated Problem(s): Type 2 diabetes mellitus with hyperglycemia, without long-term current use of insulin ([facility]) Not checking BS and due for labs. Check BS daily. Stick to ADA diet and limit carbs. Associated Problem(s): MDD (major depressive disorder), recurrent episode, moderate (CMS/HCC) Symptoms controlled with paxil and continue. Associated Problem(s): Generalized anxiety disorder (CMS/HCC) Symptoms controlled with paxil and continue. Associated Problem(s): Essential hypertension, benign (CMS/HCC) BP elevated today but previously controlled and monitor PRN. Associated Problem(s): DDD (degenerative disc disease), lumbar Pain much improved with medication and continue. Continue home PT exercises. Images from the original note were not included. Subjective Patient ID: Jay Tapia is a 49 y.o. male who presents for Follow-up (2 m). Follow up DM, HTN, back pain, and anxiety. Patient much improved today. Not checking BS away from office. Tries to eat well and stick to ADA diet. Denies signs of elevated BS such as polyuria, polyphagia or polydipsia. Did not have labs drawn. Checking BP PRN and typically controlled. BP elevated today but did not take meds this am. Taking medication daily and tolerating without side effects. Pain improved today. Mild pain in low back and across top hips. Occasionally pain radiates into bilateral gluteal region and down legs. Pain with walking and standing. Pain worse with standing, bending, and lifting. Using medication PRN and works well to control pain. Able to work and stay active. Mood improved with increased dose of paxil. Not as down or sad and feels happier. Able to do more and interact better with others. Anxiety stable. Not as stressed out or overwhelmed. Not as nervous or worry as much. Not as mckeon or irritable. Review of Systems Constitutional: Negative for fatigue. Respiratory: Negative for cough, shortness of breath and wheezing. Cardiovascular: Negative for chest pain and palpitations. Gastrointestinal: Negative for abdominal pain, diarrhea, nausea and vomiting. Genitourinary: Negative for dysuria. Objective Physical Exam Constitutional: General: He is not in acute distress. Appearance: Normal appearance. HENT: Head: Normocephalic. Right Ear: Tympanic membrane and ear canal normal. Left Ear: Tympanic membrane and ear canal normal. Eyes: Extraocular Movements: Extraocular movements intact. Pupils: Pupils are equal, round, and reactive to light. Cardiovascular: Rate and Rhythm: Normal rate and regular rhythm. Heart sounds: No murmur heard. No friction rub. No gallop. Pulmonary: Breath sounds: Normal breath sounds. No wheezing, rhonchi or rales. Abdominal: General: Bowel sounds are normal. There is no distension. Palpations: Abdomen is soft. Tenderness: There is no abdominal tenderness. There is no guarding or rebound. Musculoskeletal: Left lower leg: No edema. Neurological: Mental Status: He is alert. Assessment/Plan Problem List Items Addressed This Visit Essential hypertension, benign (CMS/HCC) BP elevated today but previously controlled and monitor PRN. DDD (degenerative disc disease), lumbar Pain much improved with medication and continue. Continue home PT exercises. Generalized anxiety disorder (CMS/HCC) Symptoms controlled with paxil and continue. Type 2 diabetes mellitus with hyperglycemia, without long-term current use of insulin (CMS/HCC) - Primary Not checking BS and due for labs. Check BS daily. Stick to ADA diet and limit carbs. MDD (major depressive disorder), recurrent episode, moderate (CMS/HCC) Symptoms controlled with paxil and continue. documented in this encounter [facility] 07-31-2024 Telephone encounter Note Form atting of this note might be different from the original. [facility] 07-31-2024 Miscellaneous Notes Formattin g of this note might be different from the original. documented in this encounter [facility] 07-18-2024 History of Presen t illness Narrative Associated Problem(s): Type 2 diabetes mellitus with hyperglycemia, without long-term current use of insulin (CMS/HCC) Not checking BS and due for labs. Check BS daily. Stick to ADA diet and limit carbs. Associated Problem(s): MDD (major depressive disorder), recurrent episode, moderate (CMS/HCC) Continued symptoms and increase paxil. Warned will take 2-3 weeks to notice improvement in mood. Associated Problem(s): Generalized anxiety disorder (CMS/HCC) Continued symptoms and increase paxil. Warned will take 2-3 weeks to notice improvement in mood. Associated Problem(s): Essential hypertension, benign (CMS/HCC) BP controlled and monitor PRN. Associated Problem(s): DDD (degenerative disc disease), lumbar Pain unchanged and continue PT. Use percocet PRN. If no improvement will need MRI. Images from the original note were not included. Subjective Patient ID: Jay Tapia is a 49 y.o. male who presents for Follow-up (1m) and Back Pain (Getting worse). Follow up DM, HTN, back pain, and anxiety. No change today. Not checking BS away from office. Tries to eat well and stick to ADA diet. Denies signs of elevated BS such as polyuria, polyphagia or polydipsia. Checking BP PRN and typically controlled. BP normal today. Taking medication daily and tolerating without side effects. Pain continues to worsen. Increased pain in low back and across top hips. Pain into bilateral gluteal region and down legs. Pain with walking and standing. Developed weakness in legs and at times hard to lift leg to get into car. Using medication PRN but not helping. Started PT and no improvement. Mood unchanged with paxil. Down, sad, and no motivation. Not want to do anything or be around others. Not want to leave house. Severe anxiety. Nervous and worry all the time. Stressed out and overwhelmed. Thought racing and hard to clear mind. Mckeon, irritable and snapping at others. Easily upset and overreact. Review of Systems Constitutional: Negative for fatigue. Respiratory: Negative for cough, shortness of breath and wheezing. Cardiovascular: Negative for chest pain and palpitations. Gastrointestinal: Negative for abdominal pain, diarrhea, nausea and vomiting. Genitourinary: Negative for dysuria. Objective Physical Exam Constitutional: General: He is not in acute distress. Appearance: Normal appearance. HENT: Head: Normocephalic. Right Ear: Tympanic membrane and ear canal normal. Left Ear: Tympanic membrane and ear canal normal. Eyes: Extraocular Movements: Extraocular movements intact. Pupils: Pupils are equal, round, and reactive to light. Cardiovascular: Rate and Rhythm: Normal rate and regular rhythm. Heart sounds: No murmur heard. No friction rub. No gallop. Pulmonary: Breath sounds: Normal breath sounds. No wheezing, rhonchi or rales. Abdominal: General: Bowel sounds are normal. There is no distension. Palpations: Abdomen is soft. Tenderness: There is no abdominal tenderness. There is no guarding or rebound. Musculoskeletal: Left lower leg: No edema. Neurological: Mental Status: He is alert. Assessment/Plan Problem List Items Addressed This Visit Essential hypertension, benign (CMS/HCC) BP controlled and monitor PRN. DDD (degenerative disc disease), lumbar Pain unchanged and continue PT. Use percocet PRN. If no improvement will need MRI. Relevant Medications oxyCODONE-acetaminophen (Percocet) 5-325 MG tablet Generalized anxiety disorder (CMS/HCC) Continued symptoms and increase paxil. Warned will take 2-3 weeks to notice improvement in mood. Type 2 diabetes mellitus with hyperglycemia, without long-term current use of insulin (CMS/HCC) - Primary Not checking BS and due for labs. Check BS daily. Stick to ADA diet and limit carbs. MDD (major depressive disorder), recurrent episode, moderate (CMS/HCC) Continued symptoms and increase paxil. Warned will take 2-3 weeks to notice improvement in mood. Relevant Medications PARoxetine (Paxil) 20 MG tablet documented in this encounter [facility] 05-24-2024 History of Presen t illness Narrative Associated Problem(s): Type 2 diabetes mellitus with hyperglycemia, without long-term current use of insulin (CMS/HCC) Not checking BS and due for labs. Check BS daily. Stick to ADA diet and limit carbs. Associated Problem(s): Generalized anxiety disorder (CMS/HCC) Continued symptoms and no change with zoloft. Start paxil and warned will take 2-3 weeks to notice improvement in mood. Associated Problem(s): MDD (major depressive disorder), recurrent episode, moderate (CMS/HCC) Continued symptoms and no change with zoloft. Start paxil and warned will take 2-3 weeks to notice improvement in mood. Associated Problem(s): Essential hypertension, benign (CMS/HCC) BP controlled and monitor PRN. Associated Problem(s): DDD (degenerative disc disease), lumbar Continued pain and worsening radicular symptoms suggestive of pinched nerve. Check MRI lumbar spine. Stop relafen and baclofen. Try celebrex and zanaflex. Start norco PRN for severe pain. Discussed risks and benefits of opiate therapy. Warned medication is narcotic and risk of addiction. OARRS reviewed. Images from the original note were not included. Subjective Patient ID: Jay Tapia is a 49 y.o. male who presents for Follow-up (Anxiety pills not working/) and Back Pain. Follow up DM, HTN, back pain, and anxiety. No change today. Just got insurance card and did not have labs, x-ray, or start PT. Not checking BS away from office. Changed diet and cut out pop. Tries to eat well and stick to ADA diet. Denies signs of elevated BS such as polyuria, polyphagia or polydipsia. Checking BP PRN and typically controlled. BP normal today. Taking medication daily and tolerating without side effects. Pain continues to worsen. Increased pain in low back and across top hips. Pain into bilateral gluteal region and down legs. Pain with walking and standing. Developed weakness in legs and at times hard to lift leg to get into car. Using relafen and baclofen but not helping. Mood unchanged with zoloft. Down, sad, and no motivation. Not want to do anything or be around others. Not want to leave house. Severe anxiety. Nervous and worry all the time. Stressed out and overwhelmed. Thought racing and hard to clear mind. Mckeon, irritable and snapping at others. Easily upset and overreact. Back Pain Pertinent negatives include no abdominal pain, chest pain or dysuria. Review of Systems Constitutional: Negative for fatigue. Respiratory: Negative for cough, shortness of breath and wheezing. Cardiovascular: Negative for chest pain and palpitations. Gastrointestinal: Negative for abdominal pain, diarrhea, nausea and vomiting. Genitourinary: Negative for dysuria. Musculoskeletal: Positive for back pain. Objective Physical Exam Constitutional: General: He is not in acute distress. Appearance: Normal appearance. HENT: Head: Normocephalic. Right Ear: Tympanic membrane and ear canal normal. Left Ear: Tympanic membrane and ear canal normal. Eyes: Extraocular Movements: Extraocular movements intact. Pupils: Pupils are equal, round, and reactive to light. Cardiovascular: Rate and Rhythm: Normal rate and regular rhythm. Heart sounds: No murmur heard. No friction rub. No gallop. Pulmonary: Breath sounds: Normal breath sounds. No wheezing, rhonchi or rales. Abdominal: General: Bowel sounds are normal. There is no distension. Palpations: Abdomen is soft. Tenderness: There is no abdominal tenderness. There is no guarding or rebound. Musculoskeletal: Left lower leg: No edema. Neurological: Mental Status: He is alert. Assessment/Plan Problem List Items Addressed This Visit Essential hypertension, benign (CMS/HCC) BP controlled and monitor PRN. DDD (degenerative disc disease), lumbar Continued pain and worsening radicular symptoms suggestive of pinched nerve. Check MRI lumbar spine. Stop relafen and baclofen. Try celebrex and zanaflex. Start norco PRN for severe pain. Discussed risks and benefits of opiate therapy. Warned medication is narcotic and risk of addiction. OARRS reviewed. Relevant Medications celecoxib (CeleBREX) 200 MG capsule tiZANidine (Zanaflex) 4 MG tablet HYDROcodone-acetaminophen ([place]) 5-325 MG tablet Generalized anxiety disorder (CMS/HCC) Continued symptoms and no change with zoloft. Start paxil and warned will take 2-3 weeks to notice improvement in mood. Type 2 diabetes mellitus with hyperglycemia, without long-term current use of insulin (CMS/HCC) - Primary Not checking BS and due for labs. Check BS daily. Stick to ADA diet and limit carbs. MDD (major depressive disorder), recurrent episode, moderate (CMS/HCC) Continued symptoms and no change with zoloft. Start paxil and warned will take 2-3 weeks to notice improvement in mood. Relevant Medications PARoxetine (Paxil) 10 MG tablet documented in this encounter [facility] Evaluation note Diagnosis Type 2 diabetes mellitus with hyperglycemia, without long-term current use of insulin (CMS/HCC)- Primary Essential hypertension, benign (CMS/HCC) Essential hypertension, benign MDD (major depressive disorder), recurrent episode, moderate (CMS/HCC) Generalized anxiety disorder (CMS/HCC) Generalized anxiety disorder 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 pain [facility] Diagnosis Type 2 diabetes mellitus with hyperglycemia, without long-term current use of insulin (CMS/HCC)- Primary Essential hypertension, benign (CMS/HCC) Essential hypertension, benign DDD (degenerative disc disease), cervical Degeneration of cervical intervertebral disc DDD (degenerative disc disease), lumbar Degeneration of lumbar or lumbosacral intervertebral disc MDD (major depressive disorder), recurrent episode, moderate (CMS/HCC) Generalized anxiety disorder (CMS/HCC) Generalized anxiety disorder Annual physical exam Routine general medical examination at a health care facility Type 2 diabetes mellitus with hyperglycemia, without long-term current use of insulin (CMS/HCC)- Primary Essential hypertension, benign (CMS/HCC) Essential hypertension, benign MDD (major depressive disorder), recurrent episode, moderate (CMS/HCC) Generalized anxiety disorder (CMS/HCC) Generalized anxiety disorder 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 pain Type 2 diabetes mellitus with hyperglycemia, without long-term current use of insulin (CMS/HCC)- Primary Essential hypertension, benign (CMS/HCC) Essential hypertension, benign 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 pain MDD (major depressive disorder), recurrent episode, moderate (CMS/HCC) Generalized anxiety disorder (CMS/HCC) Generalized anxiety disorder [facility] Diagnosis Type 2 diabetes mellitus with hyperglycemia, without long-term current use of insulin (CMS/HCC)- Primary Essential hypertension, benign (CMS/HCC) Essential hypertension, benign DDD (degenerative disc disease), cervical Degeneration of cervical intervertebral disc DDD (degenerative disc disease), lumbar Degeneration of lumbar or lumbosacral intervertebral disc MDD (major depressive disorder), recurrent episode, moderate (CMS/HCC) Generalized anxiety disorder (CMS/HCC) Generalized anxiety disorder Annual physical exam Routine general medical examination at a health care facility Type 2 diabetes mellitus with hyperglycemia, without long-term current use of insulin (CMS/HCC)- Primary Essential hypertension, benign (CMS/HCC) Essential hypertension, benign MDD (major depressive disorder), recurrent episode, moderate (CMS/HCC) Generalized anxiety disorder (CMS/HCC) Generalized anxiety disorder 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 pain Type 2 diabetes mellitus with hyperglycemia, without long-term current use of insulin (CMS/HCC)- Primary Essential hypertension, benign (CMS/HCC) Essential hypertension, benign 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 pain MDD (major depressive disorder), recurrent episode, moderate (CMS/HCC) Generalized anxiety disorder (CMS/HCC) Generalized anxiety disorder 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 pain documented [facility] Diagnosis Type 2 diabetes mellitus with hyperglycemia, without long-term current use of insulin (CMS/HCC)- Primary Essential hypertension, benign (CMS/HCC) Essential hypertension, benign DDD (degenerative disc disease), cervical Degeneration of cervical intervertebral disc DDD (degenerative disc disease), lumbar Degeneration of lumbar or lumbosacral intervertebral disc MDD (major depressive disorder), recurrent episode, moderate (CMS/HCC) Generalized anxiety disorder (CMS/HCC) Generalized anxiety disorder Annual physical exam Routine general medical examination at a health care facility Type 2 diabetes mellitus with hyperglycemia, without long-term current use of insulin (CMS/HCC)- Primary Essential hypertension, benign (CMS/HCC) Essential hypertension, benign MDD (major depressive disorder), recurrent episode, moderate (CMS/HCC) Generalized anxiety disorder (CMS/HCC) Generalized anxiety disorder 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 pain Type 2 diabetes mellitus with hyperglycemia, without long-term current use of insulin (CMS/HCC)- Primary Essential hypertension, benign (CMS/HCC) Essential hypertension, benign 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 pain MDD (major depressive disorder), recurrent episode, moderate (CMS/HCC) Generalized anxiety disorder (CMS/HCC) Generalized anxiety disorder 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 pain documented [facility] Diagnosis Type 2 diabetes mellitus with hyperglycemia, without long-term current use of insulin (CMS/HCC)- Primary Essential hypertension, benign (CMS/HCC) Essential hypertension, benign DDD (degenerative disc disease), cervical Degeneration of cervical intervertebral disc DDD (degenerative disc disease), lumbar Degeneration of lumbar or lumbosacral intervertebral disc MDD (major depressive disorder), recurrent episode, moderate (CMS/HCC) Generalized anxiety disorder (CMS/HCC) Generalized anxiety disorder Annual physical exam Routine general medical examination at a health care facility Type 2 diabetes mellitus with hyperglycemia, without long-term current use of insulin (CMS/HCC)- Primary Essential hypertension, benign (CMS/HCC) Essential hypertension, benign MDD (major depressive disorder), recurrent episode, moderate (CMS/HCC) Generalized anxiety disorder (CMS/HCC) Generalized anxiety disorder 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 pain Type 2 diabetes mellitus with hyperglycemia, without long-term current use of insulin (CMS/HCC)- Primary Essential hypertension, benign (CMS/HCC) Essential hypertension, benign 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 pain MDD (major depressive disorder), recurrent episode, moderate (CMS/HCC) Generalized anxiety disorder (CMS/HCC) Generalized anxiety disorder Type 2 diabetes mellitus with hyperglycemia, without long-term current use of insulin (CMS/HCC)- Primary Essential hypertension, benign (CMS/HCC) Essential hypertension, benign 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 pain MDD (major depressive disorder), recurrent episode, moderate (CMS/HCC) Generalized anxiety disorder (CMS/HCC) Generalized anxiety disorder [facility] Diagnosis Type 2 diabetes mellitus with hyperglycemia, without long-term current use of insulin (CMS/HCC)- Primary Essential hypertension, benign (CMS/HCC) Essential hypertension, benign DDD (degenerative disc disease), cervical Degeneration of cervical intervertebral disc DDD (degenerative disc disease), lumbar Degeneration of lumbar or lumbosacral intervertebral disc MDD (major depressive disorder), recurrent episode, moderate (CMS/HCC) Generalized anxiety disorder (CMS/HCC) Generalized anxiety disorder Annual physical exam Routine general medical examination at a [facility] care facility Type 2 diabetes mellitus with hyperglycemia, without long-term current use of insulin (CMS/HCC)- Primary Essential hypertension, benign (CMS/HCC) Essential hypertension, benign MDD (major depressive disorder), recurrent episode, moderate (CMS/HCC) Generalized anxiety disorder (CMS/HCC) Generalized anxiety disorder 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 pain Type 2 diabetes mellitus with hyperglycemia, without long-term current use of insulin (CMS/HCC)- Primary Essential hypertension, benign (CMS/HCC) Essential hypertension, benign 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 pain MDD (major depressive disorder), recurrent episode, moderate (CMS/HCC) Generalized anxiety disorder (CMS/HCC) Generalized anxiety disorder Type 2 diabetes mellitus with hyperglycemia, without long-term current use of insulin (CMS/HCC)- Primary Essential hypertension, benign (CMS/HCC) Essential hypertension, benign 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 pain MDD (major depressive disorder), recurrent episode, moderate (CMS/HCC) Generalized anxiety disorder (CMS/HCC) Generalized anxiety disorder 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 pain documented [facility] this [facility]* Diagnosis Type 2 diabetes mellitus with hyperglycemia, without long-term current use of insulin (CMS/HCC)- Primary Essential hypertension, benign (CMS/HCC) Essential hypertension, benign DDD (degenerative disc disease), cervical Degeneration of cervical intervertebral disc DDD (degenerative disc disease), lumbar Degeneration of lumbar or lumbosacral intervertebral disc MDD (major depressive disorder), recurrent episode, moderate (CMS/HCC) Generalized anxiety disorder (CMS/HCC) Generalized anxiety disorder Annual physical exam Routine general medical examination at a [facility] care facility Type 2 diabetes mellitus with hyperglycemia, without long-term current use of insulin (CMS/HCC)- Primary Essential hypertension, benign (CMS/HCC) Essential hypertension, benign MDD (major depressive disorder), recurrent episode, moderate (CMS/HCC) Generalized anxiety disorder (CMS/HCC) Generalized anxiety disorder 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 pain Type 2 diabetes mellitus with hyperglycemia, without long-term current use of insulin (CMS/HCC)- Primary Essential hypertension, benign (CMS/HCC) Essential hypertension, benign 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 pain MDD (major depressive disorder), recurrent episode, moderate (CMS/HCC) Generalized anxiety disorder (CMS/HCC) Generalized anxiety disorder Type 2 diabetes mellitus with hyperglycemia, without long-term current use of insulin (CMS/HCC)- Primary Essential hypertension, benign (CMS/HCC) Essential hypertension, benign 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 pain MDD (major depressive disorder), recurrent episode, moderate (CMS/HCC) Generalized anxiety disorder (CMS/HCC) Generalized anxiety disorder 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 pain documented in this encounter [facility] Summary Purpose Family History No Family History Records FoundNo Family History Records Found Advance Directives No Advanced Directives Records FoundNo Advanced Directives Records Found Additional Source Comments (unrecognized sect ion and content) No Status Records FoundNo Status Records Found INFORMATION SOURCE (unrecogn ized section and content) DATE CREATED AUTHOR 06/06/2022 [facility] DATE CREATED AUTHOR AUTHOR'S ORGANIZ ATION 09/20/2024 [facility] Care Teams (unrecognized sec tion and content) Radio Frequency Design Engineer Relationship Specialty Start Date End Date Shun Escalona MD [address] [place] [address] PCP - General Family Medicine 03/19/24 Radio Frequency Design Engineer Relationship Specialty Start Date End Date Shun Escalona MD [address] [place] [address] PCP - General Family Medicine 03/19/24 Radio Frequency Design Engineer Relationship Specialty Start Date End Date Shun Escalona MD [address] [place] [address] PCP - General Family Medicine 03/19/24 Radio Frequency Design Engineer Relationship Specialty Start Date End Date Shun Escalona MD [address] [place] [address] PCP - General Family Medicine 03/19/24 Radio Frequency Design Engineer Relationship Specialty Start Date End Date Shun Escalona MD [address] [place] [address] PCP - General Family Medicine 03/19/24 Radio Frequency Design Engineer Relationship Specialty Start Date End Date Shun Escalona MD [address] [place] [address] PCP - General Family Medicine 03/19/24 Radio Frequency Design Engineer Relationship Specialty Start Date End Date Shun Escalona MD [address] [place] [address] PCP - General Family Medicine 03/19/24 Radio Frequency Design Engineer Relationship Specialty Start Date End Date Shun Escalona MD [address] [place] [address] PCP - General Family Medicine 03/19/24 Reason for Visit (unrecogniz ed section and content) Reason Comments Follow-up Anxiety pills not wo rking Back Pain Reason Comments Follow-up 1m Back Pain Getting worse Reason Onset Date Comments Med Refill 07/31/2024 Reason Onset Date Comments Med Refill 08/19/2024 Reason Onset Date Comments Med Refill 09/09/2024 Reason Comments Follow-up 2 m Reason Comments Med Refill FOR RECORDS PERTAINING TO PATIENTS WHO ARE OR HAVE BEEN ENROLLED IN A CHEMICAL DEPENDENCY/SUBSTANCEABUSE PROGRAM, SOME INFORMATION MAY BE OMITTED. This clinical summary was aggregated from multiple sources. Caution should be exercised in using it in the provision of clinical care. This summary normalizes information from multiple sources, and as a consequence, information in this document may materially change the coding, format and clinical context of patient data. In addition, data may be omitted in some cases. CLINICAL DECISIONS SHOULD BE BASED ON THE PRIMARY CLINICAL RECORDS. [employer] provides no warranty or guarantee of the accuracy or completeness of information in this document.
[2024-10-18 09:57] LABS: Basophils Absolute Auto 0.1 10^3/uL (0.0-0.1); Basophils Percent Auto 0.9 % (0.2-2.0); Eosinophils Absolute Auto 0.3 10^3/uL (0.0-0.7); Hematocrit 48.5 % (42.0-54.0); Hemoglobin 17.2 g/dL (14.0-18.0); Immature Granulocytes Abs Auto 0.02 10^3/uL (0.00-0.03); Immature Granulocytes Pct Auto 0.3 % (0.0-0.5); Lymphocytes Absolute Auto 3.2 10^3/uL (1.2-3.8); Lymphocytes Percent Auto 42.7 % (20.5-60.0); Mean Corpuscular HGB Conc 35.5 g/dL (29.9-35.2); Mean Corpuscular Hemoglobin 30.1 pg (25.9-34.0); Mean Corpuscular Volume 84.8 fL (80.0-94.0); Monocytes Absolute Auto 0.4 10^3/uL (0.3-0.8); Monocytes Percent Auto 5.9 % (1.7-12.0); Neutrophils Absolute Auto 3.4 10^3/uL (1.4-6.5); Neutrophils Percent Auto 46.2 % (43.0-75.0); Platelet Count 199 10^3/uL (150-450); Red Blood Count 5.72 10^6/uL (4.70-6.10); Red Cell Distribution Width 12.1 % (11.0-15.0); White Blood Count 7.4 10^3/uL (4.0-11.0)
[2024-10-18 10:14] LABS: Estimated Average Glucose 243 mg/dL; Glycohemoglobin A1C 10.1 % (4.5-6.2)
[2024-10-18 10:30] LABS: Microalbumin Urine Random 8.2 mg/dL (<=30.0)
[2024-10-18 11:05] LABS: Prostate Specific Antigen Scrn 0.38 ng/mL (<=4.00)
[2024-10-18 11:06] LABS: Alanine Aminotransferase 27 U/L (16-63); Albumin Globulin Ratio 1.2; Alkaline Phosphatase 109 U/L (46-116); Anion Gap 9.4; Aspartate Amino Transferase 6 U/L (15-37); BUN Creatinine Ratio 12.9; Bilirubin Direct 0.1 mg/dL (0.0-0.2); Bilirubin Total 0.6 mg/dL (0.2-1.0); Carbon Dioxide 31.7 mmol/L (21.0-32.0); Chloride 99 mmol/L (98-107); Chol HDL Ratio 5.9; Cholesterol 171 mg/dL (<=200); Estimated GFR (African America >60 (>=60 mL/min/1.73m^2); Estimated GFR (Non-African Ame >60 (>=60 mL/min/1.73m^2); Globulin 3.3 g/dL; Glucose 283 mg/dL (74-106); HDL Cholesterol 29 mg/dL (40-60); Potassium 4.1 mmol/L (3.5-5.1); Sodium 136 mmol/L (136-145); Total Protein 7.3 g/dL (6.4-8.2); Triglycerides 575 mg/dL (<=150)
[2024-10-18 11:08] LABS: LDL Cholesterol Direct 67 mg/dL
== END 2024-10-18 09:25 | disposition home or self-care (01) ==
LOC: LAB 09:30
PROVIDERS: PCP Family Medicine; Visit Provider Family Medicine
DX: Z00.00 Encounter for general adult medical examination without abnormal findings (principal); E11.65 Type 2 diabetes mellitus with hyperglycemia
CPT/HCPCS: 36415; 80048; 80061; 80076; 82043; 83036; 83721; 84443; 85025; G0103

== ENCOUNTER 2025-02-03 10:52 | Emergency (ER) | payer MEDICAID, SELFPAY ==
--- OUTSIDE RECORDS SUMMARY | 2025-02-03 10:59 | XMS_ITS | Encounter Summary ---
Author Organization [facility] Address [address] [place] [address] Care Team Providers Care Station Engineer Name Role Phone Shun Encarnacion MD Primary Care Provider [phone] Reason for Visit * Reason Onset Date Comments Med Refill 01/30/2025 Encounter Details Date Type Department Care Team (Late st Contact Info) Description 01/30/2025 Refill [facility] [address] [place] [address] Shun Encarnacion MD [address] [place] [phone] 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 pain Social History Tobacco Use Types Packs/Day Years Used Date Smoking Tobacco: Former Cigarettes 2 015 - 2000 Smokeless Tobacco: Never B1300 Health Literacy Answer Date Recor ded How often do you need to hav e someone help you when you read instructions, pamphlets, or other written material from your doctor or pharmacy? Sometimes 05/23/2024 Social Connection and Isolation Panel [NHANES] A nswer Date Recorded In a typical week, how many times do you talk on the phone with family, friends, or neighbors? Never 05/23/20 24 How often do you get togethe r with friends or relatives? Never 05/23/2024 How often do you attend chur or christian services? Never 05/23/2024 Do you belong to any clubs o r organizations such as judaism groups, unions, fraternal or athletic groups, or school groups? No 05/23/2024 How often do you attend meet ings of the clubs or organizations you belong to? Never 05/23/2024 Are you , , di vorced, , never , or living with a partner? Living with partner 05/23/2024 AUDIT-C Answer Date Recorded Q1: How often do you have a drink containing alc ohol? Monthly or less 05/23/2024 Q2: How many drinks containi ng alcohol do you have on a typical day when you are drinking? 1 or 2 05/23/2024 Q3: How often do you have si x or more drinks on one occasion? Never 05/23/2024 Overall Financial Resource Strain (CARDIA) Answe r Date Recorded How hard is it for you to pa y for the very basics like food, housing, medical care, and heating? Patient declined 05/23/2024 [facility] - Occupational Stress Questionnaire Answer Date Recorded Do you feel stress - tense, restless, nervous, or anxious, or unable to sleep at night because your mind is troubled all the time - these days? Very much 05/23/2024 Exercise Vital Sign Answer Date Recorde d On average, how many days pe r week do you engage in moderate to strenuous exercise (like a brisk walk)? 0 days 05/23/2024 On average, how many minutes do you engage in exercise at this level? 0 min 05/23/2024 Hunger Vital Sign Answer Date Recorded Within the past 12 months, y ou worried that your food would run out before you got the money to buy more. Patient declined Within the past 12 months, t he food you bought just didn't last and you didn't have money to get more. Patient declined 04/2024 PRAPARE - Transportation Answer Date Re corded In the past 12 months, has l ack of transportation kept you from medical appointments or from getting medications? Patient declined 05/23/2024 In the past 12 months, has l ack of transportation kept you from meetings, work, or from getting things needed for daily living? Patient declined 05/23/2024 Housing Stability Vital Sign Answer Regan e Recorded In the last 12 months, was t here a time when you were not able to pay the mortgage or rent on time? No 05/23/2024 Number of Times Moved in the Last Year Not on fi le 05/23/2024 At any time in the past 12 m [facility], were you homeless or living in a assisted (including now)? No 05/23/2024 Sex and Gender Information Value Date Recorded Sex Assigned at Not on file Legal Sex Male 10:24 AM EST Gender Identity Male 04/02/2024 4:11 PM EDT Sexual Orientation Not on file documented as of this encounter Plan of Treatment Upcoming Encounters Date Type Department Care Team (Late st Contact Info) Description 02/27/2025 8:30 AM EDT Office Visit [facility] [address] [place] [address] Shun Encarnacion MD [address] [place] [address] 03/20/2025 9:30 AM EDT Office Visit [facility] [address] [place] [address] Shun Encarnacion MD [address] [place] [phone] documented as of this encounter Visit Diagnoses Diagnosis 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 pain documented in this encounter Care Teams Station Engineer Relationship Specialty Start Date End Date Shun Encarnacion MD [address] [place] [phone] PCP - General Family Medicine 03/19/24 documented as of this encounter
--- OUTSIDE RECORDS SUMMARY | 2025-02-03 10:59 | XMS_ITS | Encounter Summary ---
Author Organization [facility] Address [address] [place] [address] Care Team Providers Care Deputy Sheriff Custody Name Role Phone Shun Encarnacion MD Primary Care Provider [phone] Encounter Details Date Type Department Care Team (Late st Contact Info) Description 12/10/2024 Orders Only [facility] [address] [place] [phone] Sally Arias, OD [address] [place] [address] Social History Tobacco Use Types Packs/Day Years Used Date Smoking Tobacco: Former Cigarettes 2 015 - 1999 Smokeless Tobacco: Never B1300 Health Literacy Answer [...] 05/23/2024 How often do you attend chur ch or advent services? Never 05/23/2024 Do you belong to any clubs o r organizations such as mormon groups, unions, fraternal or athletic groups, or [...] medical care, and heating? Patient declined 05/23/2024 [facility] - Occupational Stress [...] any time in the past 12 m [facility], were you homeless or living in a group home (including now)? No 05/23/2024 Sex and Gender [...] Visit [facility] [address] [place] [phone] Shun Encarnacion MD [address] [place] [phone] 03/20/2025 9:30 AM EDT Office Visit [facility] [address] [place] [phone] Shun Encarnacion MD [address] [place] [phone] documented as of this encounter Procedures Procedure Name Priority Date/Time Associated Diagnosis Comments DIABETIC RETINOPATHY SCREENING - OU - BOTH EYES Routine 12/10/2024 1:16 PM EDT documented in this encounter Results * Diabetic Retinopathy Screening - OU - Both Eyes (12/10/2024 1:16 PM EDT) Anatomical Region Laterality Modality Head Other Sally Arias OD OPHTH PHOTOGRAPHY Final Result documented in this encounter Visit Diagnoses Not on filedocumented in this encounter Care Teams Deputy Sheriff Custody Relationship Specialty Start Date End Date Shun Encarnacion MD [address] [place] [phone] PCP - General Family Medicine 03/19/24 documented as of this encounter
--- OUTSIDE RECORDS SUMMARY | 2025-02-03 10:59 | XMS_ITS | Clinical Summary ---
Author Organization [facility] Address [address] [place] [address] Care Team Providers Care Day Haul Youth Supervisor Name Role Phone Shun Encarnacion MD Primary Care Provider [phone] Allergies No known active allergies Medications Blood Glucose Monitoring Suppl (Blood Glucose Monitor System) w/Device kitIndications:Typ e 2 diabetes mellitus with hyperglycemia, without long-term current use of insulin ([facility]) 1 each Daily 1 kit 4 Active Glucose Blood (Blood Glucose Test) stripIndications:T ype 2 diabetes mellitus with hyperglycemia, without long-term current use of insulin ([facility]) 1 each by In Vitro route Daily 50 strip 11 4 Active Lancets Micro Thin 33G miscIndications:Ty pe 2 diabetes mellitus with hyperglycemia, without long-term current use of insulin ([facility]) 1 each Daily 50 each 11 4 Active lisinopril 20 MG tabletIndications: Essential hypertension, benign Take 1 tablet (20 mg) by mouth Daily 30 tablet 11 4 Active PARoxetine (Paxil) 20 MG tabletIndications: MDD (major depressive disorder), recurrent episode, moderate (HCC) Take 1 tablet (20 mg) by mouth in the morning. 30 tablet 5 4 Active celecoxib (CeleBREX) 200 MG capsuleIndications :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 pain TAKE 1 CAPSULE BY MOUTH DAILY WITH FOOD 30 capsule 3 5 Active glipiZIDE (Glucotrol) 10 MG tabletIndications: Type 2 diabetes mellitus with hyperglycemia, without long-term current use of insulin (HCC) Take 1 tablet (10 mg) by mouth in the morning and 1 tablet (10 mg) in the evening. Take before meals. 60 tablet 5 5 Active metFORMIN XR (Glucophage-XR) 500 MG 24 hr tabletIndications: Type 2 diabetes mellitus with hyperglycemia, without long-term current use of insulin (HCC) Take 1 tablet (500 mg) by mouth in the morning and at noon 60 tablet 5 5 Active tiZANidine (Zanaflex) 4 MG tabletIndications: 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 pain Take 1 tablet (4 mg) by mouth 3 (three) times a day as needed for muscle spasms 60 tablet 3 5 Active oxyCODONE-acetamin ophen (Percocet) 5-325 MG tabletIndications: 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 pain Take 1 tablet by mouth 4 (four) times a day as needed for moderate pain or severe pain for up to 15 days 60 tablet 5 025 Active oxyCODONE-acetamin ophen (Percocet) 5-325 MG tabletIndications: 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 pain Take 1 tablet by mouth 4 (four) times a day as needed for moderate pain or severe pain for up to 15 days 60 tablet 5 025 Discontin ued(Reord er) Active Problems Problem Noted Date Diagnosed Date Essential hypertension, benign 03/19/2024 Assessment & Plan (12/18/2024 10:36 AM EDT): BP controlled and monitor PRN. Assessment & Plan (09/18/2024 10:42 AM EST): BP elevated today but previously controlled and monitor PRN. Assessment & Plan (07/18/2024 11:09 AM EST): BP controlled and monitor PRN. Assessment & Plan (05/24/2024 9:51 AM EDT): BP controlled and monitor PRN. Assessment & Plan (03/19/2024 10:12 AM EDT): BP controlled and monitor PRN. DDD (degenerative disc disease), lumbar 03/19/20 24 Assessment & Plan (12/18/2024 10:36 AM EDT): Pain stable with medication and continue. Continue home PT exercises. Assessment & Plan (09/18/2024 10:42 AM EST): Pain much improved with medication and continue. Continue home PT exercises. Assessment & Plan (07/18/2024 11:09 AM EST): Pain unchanged and continue PT. Use percocet PRN. If no improvement will need MRI. Assessment & Plan (05/24/2024 9:51 AM EDT): Continued pain and worsening radicular symptoms suggestive of pinched nerve. Check MRI lumbar spine. Stop relafen and baclofen. Try celebrex and zanaflex. Start norco PRN for severe pain. Discussed risks and benefits of opiate therapy. Warned medication is narcotic and risk of addiction. [place]ARRS reviewed. Assessment & Plan (03/19/2024 10:11 AM EDT): Increased pain and radicular symptoms. Likely DDD. Need x-ray and PT. Continue relafen and start baclofen. Dyslipidemia 03/19/2024 Generalized anxiety disorder 03/19/2024 Assessment & Plan (12/18/2024 10:36 AM EDT): Symptoms controlled with paxil and continue. Assessment & Plan (09/18/2024 10:42 AM EST): Symptoms controlled with paxil and continue. Assessment & Plan (07/18/2024 11:09 AM EST): Continued symptoms and increase paxil. Warned will take 2-3 weeks to notice improvement in mood. Assessment & Plan (05/24/2024 9:52 AM EDT): Continued symptoms and no change with zoloft. Start paxil and warned will take 2-3 weeks to notice improvement in mood. Assessment & Plan (03/19/2024 10:12 AM EDT): Severe symptoms and not functioning well. Start zoloft and warned will take 2-3 weeks to notice improvement in mood. Gastroesophageal reflux disease 03/19/2024 Type 2 diabetes mellitus wit h hyperglycemia, without long-term current use of insulin 03/19/2024 Assessment & Plan (12/18/2024 10:37 AM EDT): Not checking BS and last A1C 10.1. Check BS daily. Stick to ADA diet and limit carbs. Assessment & Plan (09/18/2024 10:42 AM EST): Not checking BS and due for labs. Check BS daily. Stick to ADA diet and limit carbs. Assessment & Plan (07/18/2024 11:09 AM EST): Not checking BS and due for labs. Check BS daily. Stick to ADA diet and limit carbs. Assessment & Plan (05/24/2024 9:52 AM EDT): Not checking BS and due for labs. Check BS daily. Stick to ADA diet and limit carbs. Assessment & Plan (03/19/2024 10:12 AM EDT): Not checking BS and due for labs. Check BS daily. Stick to ADA diet and limit carbs. Vitamin D deficiency 03/19/2024 Annual physical exam 03/19/2024 DDD (degenerative disc disease), cervical 2023 Assessment & Plan (03/19/2024 10:11 AM EDT): Increased pain and radicular symptoms. Likely DDD. Need x-ray and PT. Continue relafen and start baclofen. MDD (major depressive disord er), recurrent episode, moderate 03/19/2024 Assessment & Plan (12/18/2024 10:36 AM EDT): Symptoms controlled with paxil and continue. Assessment & Plan (09/18/2024 10:42 AM EST): Symptoms controlled with paxil and continue. Assessment & Plan (07/18/2024 11:09 AM EST): Continued symptoms and increase paxil. Warned will take 2-3 weeks to notice improvement in mood. Assessment & Plan (05/24/2024 9:52 AM EDT): Continued symptoms and no change with zoloft. Start paxil and warned will take 2-3 weeks to notice improvement in mood. Assessment & Plan (03/19/2024 10:12 AM EDT): Severe symptoms and not functioning well. Start zoloft and warned will take 2-3 weeks to notice improvement in mood. Encounters Date Type Department Care Team Description 01/30/2025 Refill [facility] [address] [place] [address] Shun Encarnacion MD 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 pain 01/04/2025 Refill [facility] [address] [place] [address] Shun Encarnacion MD 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 pain 12/18/2024 10:00 AM EDT Office Visit [facility] [address] [place] [address] Shun Encarnacion MD Type 2 diabetes mellitus with hyperglycemia, without long-term current use of insulin (HCC) (Primary Dx); Essential hypertension, benign ; 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 pain; MDD (major depressive disorder), recurrent episode, moderate (HCC); Generalized anxiety disorder 12/18/2024 Bamboo flowsheet [facility] [address] [place] [address] Shun Encarnacion MD 12/10/2024 Orders Only [facility] [address] [place] [phone] Shun Encarnacion MD 12/10/2024 Orders Only [facility] [address] [place] [phone] Sally Arias OD 12/05/2024 Refill [facility] [address] [place] [phone] Shun Encarnacion MD 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 pain 12/05/2024 Refill [facility] [address] [place] [phone] Shun Encarnacion MD 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 pain 11/07/2024 [facility] [address] [place] [phone] Shun Encarnacion MD 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 pain from Last 3 Months Social History Tobacco Use Types Packs/Day Years [...] with family, friends, or neighbors? Never 05/23/20 How often do you get togethe r with friends or relatives? Never 05/23/2024 How often do you attend chur ch or nondenominational services? Never 05/23/2024 Do you belong to any clubs o r organizations such as adventism groups, unions, fraternal or athletic groups, or [...] medical care, and heating? Patient declined 05/23/2024 [facility] - Occupational Stress [...] any time in the past 12 m [facility], were you homeless or living in a longterm (including now)? No 05/23/2024 Sex and Gender Information Value Date Recorded Sex Assigned at Not on file Legal Sex Male 10:24 AM EST Gender Identity Male 04/02/2024 4:11 PM EDT Sexual Orientation Not on file Last Filed Vital Signs Vital Sign Reading Time Taken Comments Blood Pressure 126/78 12/18/2024 9:57 AM EDT Pulse 88 12/18/2024 9:57 AM EDT Temperature 36.4 C (97.5 F) 12/18/2024 9:57 AM EDT Respiratory Rate 18 12/18/2024 9:57 AM EDT Oxygen Saturation 98% 12/18/2024 9:57 AM EDT Inhaled Oxygen Concentration - - Weight 103 kg (228 lb) 12/18/2024 9:57 AM EDT Height 177.8 cm (5' 10 ) 12/18/2024 9:57 AM EDT Body Mass Index 32.71 12/18/2024 9:57 AM EDT Plan of Treatment Upcoming Encounters Date Type Department Care Team (Late st Contact Info) Description 02/27/2025 8:30 AM EDT Office Visit [facility] [address] [place] [phone] Shun Encarnacion MD [address] [place] [phone] 03/20/2025 9:30 AM EDT Office Visit [facility] [address] [place] [address] Shun Encarnacion MD [address] [place] [phone] Health Maintenance Due Date Last Done Comments CT Colonography 1976 Colonoscopy 1976 FIT 1976 FOBT 1976 Sigmoidoscopy 1976 Colorectal Cancer Screening 12/22/2024 FIT-DNA 12/22/2024 12/22/2021 Influenza Vaccine (Season Ended) 2025 Diabetes: Hemoglobin A1C 04/20/2025 10/18/2024 Diabetes: Urine Protein Screening 10/18/2025 025 Diabetes: Retinopathy Screening 12/10/2026 Procedures Procedure Name Priority Date/Time Associated Diagnosis Comments DIABETIC RETINOPATHY SCREENING - OU - BOTH EYES Routine 12/10/2024 1:16 PM EDT from Last 3 Months Results * Diabetic Retinopathy Screening - OU - Both Eyes (12/10/2024 1:16 PM EDT) Anatomical Region Laterality Modality Head Other Sally Arias OD OPHTH PHOTOGRAPHY Final Result from Last 3 Months Insurance [employer] [place] Care Teams Day Haul Youth Supervisor Relationship Specialty Start Date End Date Shun Encarnacion MD [address] [place] [address] PCP - General Family Medicine 03/19/24
--- OUTSIDE RECORDS SUMMARY | 2025-02-03 10:59 | XMS_ITS | Encounter Summary ---
Author Organization [facility] Address [address] [place] [address] Care Team Providers Care Chemical Preparer Name Role Phone Shun Encarnacion MD Primary Care Provider [phone] Encounter Details Date Type Department Care Team (Late st Contact Info) Description 12/10/2024 Orders Only [facility] [address] [place] [address] Shun Encarnacion MD [address] [place] [phone] Social History Tobacco Use Types Packs/Day Years [...] often do you attend chur ch or yarsani services? Never 05/23/2024 Do you belong to any clubs o r organizations such as worship groups, unions, fraternal or athletic groups, or [...] medical care, and heating? Patient declined 05/23/2024 [facility] - Occupational [...] any time in the past 12 m [facility], were you homeless or living in a custodial (including now)? No 05/23/2024 Sex and Gender Information Value Date Recorded Sex Assigned at Not on file Legal Sex Male 10:24 AM EST Gender Identity Male 04/02/2024 4:11 PM EDT Sexual Orientation Not on file documented as of this encounter Plan of Treatment Upcoming Encounters Date Type Department Care Team (Late st Contact Info) Description 02/27/2025 8:30 AM EDT [facility] [address] [place] [address] Shun Encarnacion MD [address] [place] [phone] 03/20/2025 9:30 AM EDT [facility] [address] [place] [phone] Shun Encarnacion MD [address] [place] [phone] documented as of this encounter Visit Diagnoses Not on filedocumented in this encounter Care Teams Chemical Preparer Relationship Specialty Start Date End Date Shun Encarnacion MD [address] [place] [phone] PCP - General Family Medicine 03/19/24 documented as of this encounter
--- OUTSIDE RECORDS SUMMARY | 2025-02-03 11:00 | XMS_ITS | CCD ---
Author Organization [facility] Care Team Providers Care Engraver Apprentice Decorative Name Role Phone POLA, DR SHUN Power Primary Care Unavailable ADDY, DR HANNAH Weaver Admitting Unavailable ADDY, DR HANNAH Weaver Attending Unavailable ADDY, DR HANNAH Weaver Consulting Unavailable NADERER, DR SHUN Power Admitting Unavailable NADERER, DR SHUN Power Attending Unavailable NADJORDONR, DR SHUN Power Primary Care Unavailable NADANTONELLA, DR SHUN Power Consulting Unavailable POLA, DR SHUN Power Primary Care Unavailable ADDY, DR HANNAH Weaver Admitting Unavailable ADDY, DR HANNAH Weaver Attending Unavailable ADDY, DR HANNAH Weaver Consulting Unavailable DANIELA, PATI Consulting Unavailable NADERER, DR SHUN Power Primary Care Unavailable JARON, SAÚL Admitting Unavailable JARON, SAÚL Attending Unavailable JARON, SAÚL Consulting Unavailable Shun Escalona MD Primary Care Provider POLA, SHUN Attending Unavailable NADERER, SHUN Attending Unavailable NADERER, SHUN Attending Unavailable NADERER, SHUN Attending Unavailable NADERER, SHUN Attending Unavailable Medications Current Medications Medication Drug Class(es) Dates Sig (Normalized) Sig (Original) acetaminophen 325 mg / HYDROcodone bitartrate 5 mg oral tablet (2 sources) Opioid Agonist Start: 05-24-2024 End: 05-31-2024 take 1 tablet by mouth four times daily as needed for pain HYDROcodone-acetamin ophen (Rohwer) 5-325 MG tablet Indications: 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 pain Take 1 tablet by mouth 4 (four) times a day as needed for severe pain for up to 7 days 28 tablet 05/24/2024 05/31/2024 Active acetaminophen 325 mg / oxyCODONE hydrochloride 5 mg oral tablet (16 sources) Opioid Agonist Start: 01-30-2025 End: 02-14-2025 take 1 tablet by mouth four times daily as needed for pain oxyCODONE-acetaminop hen (Percocet) 5-325 MG tablet Indications: 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 pain Take 1 tablet by mouth 4 (four) times a day as needed for moderate pain or severe pain for up to 15 days 60 tablet 01/30/2025 02/14/2025 Active Start: 12-05-2024 End: 12-20-2024 take 1 tablet by mouth four times daily as needed for pain oxyCODONE-acetaminophen (Percocet) 5-325 MG tablet Indications: 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 pain Take 1 tablet by mouth 4 (four) times a day as needed for moderate pain or severe pain for up to 15 days 60 tablet 12/05/2024 12/20/2024 Active Start: 11-07-2024 End: 11-22-2024 take 1 tablet by mouth four times daily as needed for pain oxyCODONE-acetaminophen (Percocet) 5-325 MG tablet Indications: 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 pain Take 1 tablet by mouth 4 (four) times a day as needed for moderate pain or severe pain for up to 15 days 60 tablet 11/07/2024 11/22/2024 Active Start: 10-02-2024 End: 10-24-2024 take 1 tablet [...] Suppl (Blood Glucose Monitor System) w/Device kit (20 sources) Start: 03-19-2024 Blood Glucose Monitoring Suppl (Blood Glucose Monitor System) w/Device kit Indications: Type 2 diabetes mellitus with hyperglycemia, without long-term current use of insulin ([facility]) 1 each Daily 1 kit 03/19/2024 Active Start: 03-19-2024 Blood Glucose Monitoring Suppl (Blood Glucose Monitor System) w/Device kit Indications: Type 2 diabetes mellitus with hyperglycemia, without long-term current use of insulin ([facility]) 1 each Daily 1 kit 03/19/2024 Active celecoxib 200 mg oral capsule (20 sources) Nonsteroidal Anti-inflammatory Drug Start: 05-24-2024 End: 10-09-2024 take 1 capsule by mouth once daily at mealtime celecoxib (CeleBREX) 200 MG capsule Indications: 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 pain TAKE 1 CAPSULE BY MOUTH DAILY WITH FOOD 30 capsule 3 10/09/2024 Active glipiZIDE 10 mg oral tablet (20 sources) Sulfonylurea Start: 04-13-2024 End: 04-13-2025 take 1 tablet by mouth in the morning glipiZIDE (Glucotrol) 10 MG tablet Indications: Type 2 diabetes mellitus with hyperglycemia, without long-term current use of insulin (HCC) Take 1 tablet (10 mg) by mouth in the morning and 1 tablet (10 mg) in the evening. Take before meals. 60 tablet 5 10/18/2024 Active lisinopril 20 mg oral tablet (20 sources) Angiotensin Converting Enzyme Inhibitor Start: 05-21-2024 take 1 tablet by mouth once daily lisinopril 20 MG tablet Indications: Essential hypertension, benign Take 1 tablet (20 mg) by mouth Daily 30 tablet 11 05/21/2024 Active 24 hr metFORMIN hydrochloride 500 mg extended release oral tablet (20 sources) Biguanide Start: 10-18-2024 take 1 tablet by mouth every twenty-four hours in the morning metFORMIN XR (Glucophage-XR) 500 MG 24 hr tablet Indications: Type 2 diabetes mellitus with hyperglycemia, without long-term current use of insulin (HCC) Take 1 tablet (500 mg) by mouth in the morning and at noon 60 tablet 5 10/18/2024 Active Start: 01-17-2024 End: 06-06-2025 take 1 tablet by mouth once daily metFORMIN XR (Glucophage-XR) 500 MG 24 hr tablet Indications: Type 2 diabetes mellitus with hyperglycemia, without long-term current use of insulin (CMS/HCC) Take 1 tablet (500 mg) by mouth Daily 30 tablet 11 06/06/2024 06/06/2025 Active nabumetone 500 mg oral tablet (3 sources) Nonsteroidal Anti-inflammatory Drug Start: 08-03-2023 End: 05-24-2024 take 1 tablet by mouth in the morning nabumetone (Relafen) 500 MG tablet Take 500 mg by mouth in the morning and 500 mg before bedtime. 08/03/2023 05/24/2024 Discontinued PARoxetine hydrochloride 20 mg oral tablet (20 sources) Serotonin Reuptake Inhibitor Start: 07-18-2024 take [...] 05/24/2024 Discontinued tiZANidine 4 mg oral tablet (20 sources) Central alpha-2 Adrenergic Agonist Start: 12-05-2024 take 1 tablet by mouth three times daily as needed for muscle spasms tiZANidine (Zanaflex) 4 MG tablet Indications: 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 pain Take 1 tablet (4 mg) by mouth 3 (three) times a day as needed for muscle spasms 60 tablet 3 12/05/2024 Active Start: 07-24-2024 End: 12-05-2024 take 1 tablet by mouth every six hours as needed for muscle spasms tiZANidine (Zanaflex) 4 MG tablet Indications: 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 pain TAKE 1 TABLET BY MOUTH EVERY 6 HOURS NEEDED FOR MUSCLE SPASMS 30 tablet 3 10/09/2024 12/05/2024 Discontinued Start: 05-24-2024 take 1 tablet by ronnie [...] Onset: 12-09-2021 Chronic Disorders of lipid metabolism (20 sources) Dyslipidemia; Translations: [Hyperlipidemia, unspecified] Onset: 03-19-2024 03-19-2024 Chronic Esophageal disorders (20 sources) Gastro-esophageal reflux disease without esophagitis; Translations: [Gastroesophageal reflux disease] Onset: 08-18-2021 03-19-2024 Chronic Essential hypertension (20 sources) Essential (primary) hypertension; Translations: [Benign essential hypertension] Onset: 08-18-2021 03-19-2024 Chronic Mood disorders (20 sources) Moderate recurrent major depression; Translations: [Major depressive disorder, recurrent, moderate] Onset: 03-19-2024 03-19-2024 Chronic Nutritional deficiencies (20 sources) Vitamin D deficiency; Translations: [Vitamin D [...] 12-28-2021 Episodic Other aftercare (1 source) Other fpc (current) drug therapy; Translations: [OTH TOOL SETTER CURRENT DRUG THERAPY] Onset: 12-30-2021 Episodic Other aftercare (1 source) joint terminal attack controller (current) use of oral hypoglycemic drugs; Translations: [TOOL SETTER USE ORAL HYPOGLYCEMIC DX] Onset: 12-30-2021 Episodic Unclassified (1 source) CONTACT W/AND (SUSP) EXPOS COVID-19; Translations: [CONTACT W/AND (SUSP) EXPOS COVID-19] Onset: 06-01-2022 Results Test Name Value Interpretation Reference Range Facility ALL CBC WITH AUTO DIFFon BASOPHILS ABSOLUTE AUTO 0.1 [facility] Basophils/100 WBC (Bld) 0.9 % 0.2 - 2.0 % [facility] Eosinophils/100 WBC (Bld) 4 % 0.9 - 7.0 % [facility] Erythrocyte distribution width (RBC) [Ratio] 12.1 % 11.0 - 15.0 % [facility] Hematocrit (Bld) [Volume fraction] 48.5 % 42.0 - 54.0 % [facility] Hemoglobin (Bld) [Mass/Vol] 17.2 g/dL 14.0 - 18.0 g/dL [facility] IMMATURE GRANULOCYTES ABS AUTO 0.02 [facility] Immature granulocytes/100 WBC (Bld) 0.3 % 0.0 - 0.5 % [facility] Interpretation and review of laboratory results Abnormal [facility] LYMPHOCYTES ABSOLUTE AUTO 3.2 [facility] Lymphocytes/100 WBC (Bld) 42.7 % 20.5 - 60.0 % [facility] MCH (RBC) [Entitic mass] 30.1 pg 25.9 - 34.0 pg [facility] MCHC (RBC) [Mass/Vol] 35.5 g/dL High 29.9 - 35.2 g/dL [facility] MCV (RBC) [Entitic vol] 84.8 fL 80.0 - 94.0 fL [facility] MONOCYTES ABSOLUTE AUTO 0.4 [facility] Monocytes/100 WBC (Bld) 5.9 % 1.7 - 12.0 % [facility] NEUTROPHILS ABSOLUTE AUTO 3.4 [facility] Neutrophils/100 WBC (Bld) 46.2 % 43.0 - 75.0 % [facility] Platelet mean volume (Bld) [Entitic vol] 10 fL 9.5 - 13.5 fL [facility] EO # 0.3 [facility] PLT 199 [facility] RBC 5.72 [facility] WBC 7.4 [facility] Covid-19 PCR ([facility])on 05-15 SARS-CoV-2 (COVID-19) RNA YVONNE+probe Ql (Unsp spec) Detected Critically abnormal NOT DETECTED [facility] Comment on above: Result Comment: This test is not yet approved or cleared by the [place] FDA. When there are no FDA-approved or cleared tests available, and other criteria are met, FDA can make tests available under an emergency access mechanism called an Emergency Use Authorization (EUA). The EUA for this test is supported by the Dog Beautician of Health and Human Service's declaration that [...] longer be used). Performed By: #### [facility] #### [facility] [address] [place] [address] Dr. Abigail Flores GLYCOHEMOGLOBIN A1Con 2021 ADA RECOMMENDATION SEE BELOW Normal [facility] Comment on above: Result Comment: ADA RECOMMENDED LIMIT 4.0 - 6.0 ADA THERAPEUTIC TARGET < 7.0 ACTION SUGGESTED > 7.0 Performed By: #### A 1C #### [facility] [address] [place] [address] Dr. Abigail Flores Glucose [Mass/Vol] 246 mg/dL Normal [facility] Comment on above: Performed By: #### A 1C #### [facility] [address] [place] [address] Dr. Abigail Flores HbA1c (Bld) [Mass fraction] 10.2 % Critically high 4.5-6.2 [facility] Comment on above: Performed By: #### A 1C #### [facility] [address] [place] [address] Dr. Abigail Flores CARDIAC HANNAH ADMITon 022 CK [Catalytic activity/Vol] 92 U/L Normal 55-170 [facility] Comment on above: Performed By: #### C EDWARDOM, CMP #### [facility] [address] [place] [address] Dr. Abigail Flores CK.MB [Mass/Vol] 1.09 ng/mL Normal <=2.37 [facility] Comment on above: Performed By: #### C EDWARDOM, CMP #### [facility] [address] [place] [address] Dr. Abigial Flores HSTROP 6.1 pg/mL Normal 4.0-42.2 [facility] Comment on above: Result Comment: CUT- OFF POINTS HAVE BEEN ESTABLISHED BASED ON THE FOURTH UNIVERSAL DEFINITIONS OF MYOCARDIAL INFARCTION. THE UPPER REFERENCE LIMIT (URL) OF TROPONIN, DEFINED THE 99TH PERCENTILE OF cTnI DISTRIBUTION IN A REFERENCE POPULATION, HAS BEEN CONFIRMED THE DECISION THRESHOLD FOR CA DIAGNOSIS. Performed By: #### C EDWARDOM, CMP #### [facility] [address] [place] [address] Dr. Abigail Flores KELLY 61.0 ng/mL Normal <=121.0 [facility] Comment on above: Performed By: #### C EDWARDOM, CMP #### [facility] [address] [place] [address] Dr. Abigail Flores CBC AUTO DIFFon 08-16-2021 BASO # 0.1 103/ul Normal 0.0-0.1 [facility] Comment on above: Performed By: #### C BC #### [facility] [address] [place] [address] Dr. Abigail Flores Basophils/100 WBC (Bld) 1.0 % Normal 0.2-2.0 [facility] Comment on above: Performed By: #### C BC #### [facility] [address] [place] [address] Dr. Abigail Flores EO # 0.3 103/ul Normal 0.0-0.7 [facility] Comment on above: Performed By: #### C BC #### [facility] [address] [place] [address] Dr. Abigail Flores Eosinophils/100 WBC (Bld) 3.3 % Normal 0.9-7.0 [facility] Comment on above: Performed By: #### C BC #### [facility] [address] [place] [address] Dr. Abigail Flores Erythrocyte distribution width (RBC) [Ratio] 12.4 % Normal 11.0-15.0 [facility] Comment on above: Performed By: #### C BC #### [facility] [address] [place] [address] Dr. Abigail Flores Hematocrit (Bld) [Volume fraction] 49.5 % Normal 42.0-54.0 [facility] Comment on above: Performed By: #### C BC #### [facility] [address] [place] [address] Dr. Abigail Flores Hemoglobin (Bld) [Mass/Vol] 16.6 g/dL Normal 14.0-18.0 [facility] Comment on above: Performed By: #### C BC #### [facility] [address] [place] [address] Dr. Abigail Flores IG # 0.03 10e3/ul Normal 0.00-0.03 [facility] Comment on above: Performed By: #### C BC #### [facility] [address] [place] [address] Dr. Abigail Flores IG % 0.4 % Normal 0.0-0.5 [facility] Comment on above: Performed By: #### C BC #### [facility] [address] [place] [address] Dr. Abigail Flores LYMPH # 3.3 103/ul Normal 1.2-3.8 [facility] Comment on above: Performed By: #### C BC #### [facility] [address] [place] [address] Dr. Abigail Flores Lymphocytes/100 WBC (Bld) 41.5 % Normal 20.5-60.0 [facility] Comment on above: Performed By: #### C BC #### [facility] [address] [place] [address] Dr. Abigail Flores MANUAL DIFF REQ NO Normal [facility] Comment on above: Performed By: #### C BC #### [facility] [address] [place] [address] Dr. Abigail Flores MCH (RBC) [Entitic mass] 29.0 pg Normal 25.9-34.0 [facility] Comment on above: Performed By: #### C BC #### [facility] [address] [place] [address] Dr. Abigail Flores MCHC (RBC) [Mass/Vol] 33.5 g/dL Normal 29.9-35.2 [facility] Comment on above: Performed By: #### C BC #### [facility] [address] [place] [address] Dr. Abigail Flores MCV (RBC) [Entitic vol] 86.5 fL Normal 80.0-94.0 [facility] Comment on above: Performed By: #### C BC #### [facility] [address] [place] [address] Dr. Abigail Flores MONO # 0.5 103/ul Normal 0.3-0.8 [facility] Comment on above: Performed By: #### C BC #### [facility] [address] [place] [address] Dr. Abigail Flores Monocytes/100 WBC (Bld) 5.9 % Normal 1.7-12.0 [facility] Comment on above: Performed By: #### C BC #### [facility] [address] [place] [address] Dr. Abigail Flores NEUT # 3.8 103/ul Normal 1.4-6.5 [facility] Comment on above: Performed By: #### C BC #### [facility] [address] [place] [address] Dr. Abigail Flores Neutrophils/100 WBC (Bld) 47.9 % Normal 43.0-75.0 [facility] Comment on above: Performed By: #### C BC #### [facility] [address] [place] [address] Dr. Abigail Flores Platelet mean volume (Bld) [Entitic vol] 9.9 fL Normal 9.5-13.5 [facility] Comment on above: Performed By: #### C BC #### [facility] [address] [place] [address] Dr. Abigail Flores PLT 217 103/ul Normal 150-450 [facility] Comment on above: Performed By: #### C BC #### [facility] [address] [place] [address] Dr. Abigail Flores RBC 5.72 106/ul Normal 4.70-6.10 [facility] Comment on above: Performed By: #### C BC #### [facility] [address] [place] [address] Dr. Abigail Flores WBC 8.0 103/ul Normal 4.0-11.0 [facility] Comment on above: Performed By: #### C BC #### [facility] [address] [place] [address] Dr. Abigail Flores PROF 14(COMP METB)on 022 Albumin [Mass/Vol] 3.8 g/dL Normal 3.5-5.0 [facility] Comment on above: Performed By: #### C CALLIE, CMP #### [facility] [address] [place] [address] Dr. Abigail Flores Albumin/Globulin [Mass ratio] 1.0 {ratio} Normal [facility] Comment on above: Performed By: #### C CALLIE, CMP #### [facility] [address] [place] [address] Dr. Abigail Flores ALP [Catalytic activity/Vol] 113 U/L Normal 38-126 [facility] Comment on above: Performed By: #### C CALLIE, CMP #### [facility] [address] [place] [address] Dr. Abigail Flores ALT [Catalytic activity/Vol] 35 U/L Normal 21-72 [facility] Comment on above: Performed By: #### C CALLIE, CMP #### [facility] [address] [place], [place] [id number] Dr. Abigail Flores Anion gap [Moles/Vol] 15.0 mmol/L Normal [facility] Comment on above: Performed By: #### C CALLIE, CMP #### [facility] [address] [address] [address] Abigail Flores AST [Catalytic activity/Vol] 8 U/L Critically low 17-59 [facility] Comment on above: Performed By: #### C CALLIE, CMP #### [facility] [address] [address] [address] Abigail Flores Bilirubin [Mass/Vol] 0.5 mg/dL Normal 0.2-1.3 [facility] Comment on above: Performed By: #### C CALLIE, CMP #### [facility] [address] [place] [address] Dr. Abigail Flores Calcium [Mass/Vol] 9.2 mg/dL Normal 8.4-10.2 [facility] Comment on above: Performed By: #### C CALLIE, CMP #### [facility] [address] [place] [address] Dr. Abigail Flores Chloride [Moles/Vol] 100 mmol/L Normal 98-107 [facility] Comment on above: Performed By: #### C CALLIE, CMP #### [facility] [address] [place] [address] Dr. Abigail Flores CO2 [Moles/Vol] 25.2 mmol/L Normal 22.0-30.0 [facility] Comment on above: Performed By: #### C CALLIE, CMP #### [facility] [address] [place] [address] Dr. Abigail Flores Creatinine [Mass/Vol] 0.98 mg/dL Normal 0.66-1.25 [facility] Comment on above: Performed By: #### C CALLIE, CMP #### [facility] [address] [place] [address] Dr. Abigail Flores EGFR-AF NEW ZEALANDER >60 Normal >=60 [facility] Comment on above: Performed By: #### C CALLIE, CMP #### [facility] [address] [address] [address] Abigail Flores EGFR-NON AF NEW ZEALANDER >60 Normal >=60 [facility] Comment on above: Performed By: #### C CALLIE, CMP #### [facility] [address] [address] [address] Abigail Flores Globulin (S) [Mass/Vol] 3.7 g/dL Normal [facility] Comment on above: Performed By: #### C CALLIE, CMP #### [facility] [address] [address] [address] Abigail Flores Glucose [Mass/Vol] 350 mg/dL Critically high 74-106 [facility] Comment on above: Performed By: #### C CALLIE, CMP #### [facility] [address] [place] [address] Dr. Abigail Flores Potassium [Moles/Vol] 4.2 mmol/L Normal 3.4-5.0 [facility] Comment on above: Performed By: #### C CALLIE, CMP #### [facility] [address] [place] [address] Dr. Abigail Flores Protein [Mass/Vol] 7.5 g/dL Normal 6.1-8.2 [facility] Comment on above: Performed By: #### C CALLIE, CMP #### [facility] [address] [place] [address] Dr. Abigail Flores Sodium [Moles/Vol] 136 mmol/L Critically low 137-145 [facility] Comment on above: Performed By: #### C CALLIE, CMP #### [facility] [address] [place] [address] Dr. Abigail Flores Urea nitrogen [Mass/Vol] 16.0 mg/dL Normal 9.0-20.0 [facility] Comment on above: Performed By: #### C CALLIE, CMP #### [facility] [address] [place] [address] Dr. Abigail Flores Urea nitrogen/Creatinine [Mass ratio] 16.3 mg/mg Normal [facility] Comment on above: Performed By: #### C CALLIE, CMP #### [facility] [address] [address] [address] Abigail Flores XR CHEST 1 Von [...] as clinically indicated. Electronically authenticated by: PATI SAID Date: 2021-08-16 02:53 Normal [facility] Vital Signs Date Time Vital Sign Value Performing Clinician Dylan whitney 12-18-2024 09:57-0400 Body height 177.8 cm Shun Escalona MD Work Phone: [facility] 12-18-2024 09:57-0400 Body mass index (BMI) [Ratio] 32.71 kg/m2 Shun Escalona MD Work Phone: [facility] 12-18-2024 09:57-0400 Body temperature 97.5 [degF] Shun Escalona MD Work Phone: [facility] 12-18-2024 09:57-0400 Body weight 103.42 kg Shun Escalona MD Work Phone: [facility] 12-18-2024 09:57-0400 Diastolic blood pressure 78 mm[Hg] Shun Escalona MD Work Phone: [facility] 12-18-2024 09:57-0400 Heart rate 88 /min Shun Escalona MD Work Phone: [facility] 12-18-2024 09:57-0400 Respiratory rate 18 /min Shun Escalona MD Work Phone: [facility] 12-18-2024 09:57-0400 SaO2% (BldA) [Mass fraction] 98 % Shun Escalona MD Work Phone: [facility] 12-18-2024 09:57-0400 Systolic blood pressure 126 mm[Hg] Shun Escalona MD Work Phone: [facility] 09-18-2024 10:09-0500 Body height 177.8 cm Shun Escalona MD Work Phone: [facility] 09-18-2024 10:09-0500 Body mass index (BMI) [Ratio] 32.43 kg/m2 Shun Escalona MD Work Phone: [facility] 09-18-2024 10:09-0500 Body temperature 97.5 [degF] Shun Escalona MD Work Phone: [facility] 09-18-2024 10:09-0500 Body weight 102.51 kg Shun Escalona MD Work Phone: [facility] 09-18-2024 10:09-0500 Diastolic blood pressure 70 mm[Hg] Shun Escalona MD Work Phone: [facility] 09-18-2024 10:09-0500 Heart rate 104 /min Shun Escalona MD Work Phone: [facility] 09-18-2024 10:09-0500 Respiratory rate 18 /min Shun Escalona MD Work Phone: [facility] 09-18-2024 10:09-0500 SaO2% (BldA) [Mass fraction] 98 % Shun Escalona MD Work Phone: [facility] 09-18-2024 10:09-0500 Systolic blood pressure 144 mm[Hg] Shun Escalona MD Work Phone: [facility] 07-18-2024 10:37-0500 Body height 180.3 cm Shun Escalona MD Work Phone: [facility] 07-18-2024 10:37-0500 Body mass index (BMI) [Ratio] 31.66 kg/m2 Shun Escalona MD Work Phone: [facility] 07-18-2024 10:37-0500 Body temperature 96.21 [degF] Shun Escalona MD Work Phone: [facility] 07-18-2024 10:37-0500 Body weight 102.97 kg Shun Escalona MD Work Phone: [facility] 07-18-2024 10:37-0500 Diastolic blood pressure 80 mm[Hg] Shun Escalona MD Work Phone: [facility] 07-18-2024 10:37-0500 Heart rate 91 /min Shun Escalona MD Work Phone: [facility] 07-18-2024 10:37-0500 Respiratory rate 18 /min Shun Escalona MD Work Phone: [facility] 07-18-2024 10:37-0500 SaO2% (BldA) [Mass fraction] 99 % Shun Escalona MD Work Phone: [facility] 07-18-2024 10:37-0500 Systolic blood pressure 134 mm[Hg] Shun Escalona MD Work Phone: [facility] 05-24-2024 09:16-0400 Body height 177.8 cm Shun Escalona MD Work Phone: [facility] 05-24-2024 09:16-0400 Body mass index (BMI) [Ratio] 33 kg/m2 Shun Escalona MD Work Phone: [facility] 05-24-2024 09:16-0400 Body temperature 97.81 [degF] Shun Escalona MD Work Phone: [facility] 05-24-2024 09:16-0400 Body weight 104.33 kg Shun Escalona MD Work Phone: [facility] 05-24-2024 09:16-0400 Diastolic blood pressure 82 mm[Hg] Shun Escalona MD Work Phone: [facility] 05-24-2024 09:16-0400 Heart rate 94 /min Shun Escalona MD Work Phone: [facility] 05-24-2024 09:16-0400 Respiratory rate 18 /min Shun Escalona MD Work Phone: [facility] 05-24-2024 09:16-0400 SaO2% (BldA) [Mass fraction] 95 % Shun Escalona MD Work Phone: [facility] 05-24-2024 09:16-0400 Systolic blood pressure 136 mm[Hg] Shun Escalona MD Work Phone: [facility] Healthcare Encounters Encounter Date Encounter Type Care Provider Facility Start: 01-30-2025 End: 01-30-2025 Refill Shun Escalona MD Work Phone: [facility] Comment on above: 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 discogenic back pain and lower extremity pain Start: 12-18-2024 End: 12-18-2024 Bamboo flowsheet Shun Escalona MD Work Phone: [facility] Start: 12-18-2024 End: 12-18-2024 Bamboo flowsheet Shun Escalona MD Work Phone: [facility] Start: 12-18-2024 End: 12-18-2024 Office outpatient visit 25 minutes Shun Escalona MD Work Phone: [facility] Comment on above: Type 2 diabetes yoav itus with hyperglycemia, without long-term current use of insulin (CMS/HCC) (Primary Dx); Essential hypertension, benign (CMS/HCC); 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 pain; MDD (major depressive disorder), recurrent episode, moderate (CMS/HCC); Generalized anxiety disorder (CMS/HCC) Start: 12-18-2024 End: 12-18-2024 ambulatory SHUN ESCALONA Not Available Start: 12-05-2024 End: 12-05-2024 Refill Shun Escalona MD Work Phone: [facility] Comment on above: 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 discogenic back pain and lower extremity pain Start: 11-07-2024 End: 11-07-2024 Refill Shun Escalona MD Work Phone: [facility] Comment on above: 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 discogenic back pain and lower extremity pain Start: 10-18-2024 End: 10-18-2024 Clinisync Result Encounter Shun Escalona MD Work Phone: [facility] External Department Unsolicited Start: 10-18-2024 End: 10-18-2024 Clinisync Result Encounter Shun Escalona MD Work Phone: [facility] External Department Unsolicited Start: 10-09-2024 End: 10-09-2024 Refill Shun Escalona MD Work Phone: [facility] Comment on above: 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 discogenic back pain and lower extremity pain Start: 10-02-2024 End: 10-02-2024 Orders Only Shun Escalona MD Work Phone: [facility] Comment on above: 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 discogenic back pain and lower extremity pain Start: 09-18-2024 End: 09-18-2024 Bamboo flowsheet Shun Escalona MD Work Phone: [facility] Start: 09-18-2024 End: 09-18-2024 Bamboo [...] 09-10-2024 Refill Shun Escalona MD Work Phone: [facility] Comment on above: 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 discogenic back pain and lower extremity pain Start: 08-19-2024 End: 08-20-2024 Refill Shun Escalona MD Work Phone: [facility] FM Comment on above: 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 discogenic back pain and lower extremity pain Start: 07-31-2024 End: 07-31-2024 Refill Shun Escalona MD Work Phone: [facility] Comment on above: 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 discogenic back pain and lower extremity pain Start: 07-18-2024 End: 07-18-2024 Bamboo flowsheet Shun Escalona MD Work Phone: [facility] Start: 07-18-2024 End: 07-18-2024 Bamboo flowsheet Shun Escalona MD Work Phone: [facility] Start: 07-18-2024 End: 07-18-2024 Office outpatient visit 25 minutes Shun Escalona MD Work Phone: [facility] Comment on above: Type 2 diabetes [...] ESCALONA Not Available Start: 05-24-2024 End: 05-24-2024 Bamboo flowsheet Shun Escalona MD Work Phone: [facility] Start: 05-24-2024 End: 05-24-2024 Bamboo flowsheet Shun Escalona MD Work Phone: [facility] Start: 05-24-2024 End: 05-24-2024 Office outpatient visit [...] extremity pain Start: 05-24-2024 End: 05-24-2024 ambulatory SHUN ESCALONA Not Available Start: 03-19-2024 Patient encounter procedure Shun Escalona MD Work Phone: [facility] Start: 03-19-2024 End: 03-19-2024 ambulatory SHUN ESCALONA Not Available Start: 06-01-2022 End: 06-01-[address] SHUN ESCALONA Facility:[facility] Start: 12-28-2021 End: 12-28-[address] SHUN ESCALONA Facility:[facility] Start: 12-09-2021 End: 12-10-[address] SHUN ESCALONA Facility:[facility] Start: 08-16-2021 End: 08-16-[address] SHUN ESCALONA Facility:[facility] Procedures Date Procedure Procedure Detail Performing Clinician Start: 10-18-2024 ALL CBC WITH AUTO DIFF Shun Escalona MD Work Phone: Plan of Treatment Date Care Activity Detail Author Start: 12-10-2026 Glaucoma screening Diabetes: R etinopathy Screening [facility] Healthcare Start: 10-18-2025 Urine screening for protein Diabetes: Urine Protein Screening [facility] Start: 04-20-2025 Hemoglobin A1c measurement Diabetes: Hemoglobin A1C [facility] Start: 04-15-2025 Influenza vaccination Influenz a Vaccine (Season Ended) [facility] Start: 03-20-2025 End: 03-20-2025 Patient encounter procedure 03/20/2025 9:30 AM EDT Office Visit [facility] [address] [place] [address] Shun Escalona MD [address] [place] [phone] [facility] Start: 02-27-2025 End: 02-27-2025 Patient encounter procedure 02/27/2025 8:30 AM EDT Office Visit [facility] [address] [place] [address] Shun Escalona MD [address] [place] [address] [facility] Start: 12-22-2024 Screening for malign ant neoplasm of colon [facility] Start: 12-18-2024 End: 12-18-2025 Hemoglobin A1c/Hemoglobin.total in Blood Hemoglobin A1c Lab Routine Type 2 diabetes mellitus with hyperglycemia, without long-term current use of insulin ([facility]) Expected: 12/18/2024 (Approximate), Expires: 12/18/2025 [facility] Work Phone: Comment on above: Expected: 12/18/2024 (Approximate), Expires: 12/18/2025 Start: 12-18-2024 End: 12-18-2024 Patient encounter procedure [facility] Comment on above: Arrived Start: 09-18-2024 End: 09-18-2024 Patient encounter procedure [facility] Comment on above: Arrived Start: 07-18-2024 End: 07-18-2024 Patient encounter procedure 07/18/2024 10:45 AM EST Office Visit [facility] [address] [place] [phone] Shun Escalona MD [address] [place] [phone] Arrived [facility] Comment on above: Arrived Start: 07-06-2024 End: 07-06-2024 Patient encounter procedure 07/06/2024 10:00 AM EST Office Visit [facility] [address] [place] [phone] Shun Escalona MD [address] [place] [phone] [facility] Start: 05-24-2024 End: 05-24-2024 Patient encounter procedure 05/24/2024 9:15 AM EDT Office Visit [facility] [address] [place] [address] Shun Escalona MD [address] [place] [address] [facility] Comment on above: Arrived Start: 04-15-2024 Influenza vaccination Influenza Vacc ine (#1) [facility] Start: 1995 Urine screening for protein Diabetes: Urine Protein Screening [facility] Start: 1986 Glaucoma screening Diabetes: R etinopathy Screening [facility] Start: 1976 Hemoglobin A1c measurement Diabetes: Hemoglobin A1C [facility] Start: 1976 Screening for malign ant neoplasm of colon [facility] Payers Date Payer Category Payer Medicaid [id number] 1975 Unknown [id number] [id number] 1975 Unknown [id number] 2.16.84 [id number] 1975 Unknown [id number] 2.16.84 [id number] 1975 Unknown [id number] 2.16.84 [id number] 1975 Unknown [id number] 2.16.84 [id number] 1975 Unknown [id number] 2.16.84 [id number] 1975 Unknown [id number] 2.16.84 [id number] 1975 Unknown [id number] 2.16.84 [id number] 1959 Unknown [id number] Social History Date Type Detail Facility Start: 03-19-2024 Tobacco smoking status NHIS Ex-smoke r [facility] Start: 08-15-2014 End: 08-15-1999 History of tobacco use Current smoker [facility] Start: 08-15-2014 End: 08-15-1999 History of tobacco use Cigarette Smoker [facility] Start: 03-19-2024 Tobacco use and exposure Smoke less tobacco non-user [facility] Start: 03-19-2024 End: 05-23-2024 History of Social function [facility] Start: 03-19-2024 End: 05-23-2024 Tobacco [...] to any clubs or organizations such as orthodoxy groups, unions, fraternal or athletic groups, or [...] these days [OSQ] Very much [facility] How often do you nee d to have someone help you when you read instructions, pamphlets, or other written material from your doctor or pharmacy [SILS] Sometimes [facility] Medical Equipment Procedure Code Equipment Code Equipment Origin al Text Equipment Identifier Dates 1 each by In Vit ro route Daily [id number] Start: 03-19-2024 1 each Daily [id number] Start: 03-19-2024 Clinical Notes 05-24-2024 to 12-18-2024 Shun Escalona MD - 12/18/2024 10:37 AM Rivera Escalona MD - 12/18/2024 10:36 AM Rivera Escalona MD - 12/18/2024 10:36 AM Rivera Escalona MD - 12/18/2024 10:36 AM EDT Note Date & Type Note Facility 12-18-2024 History of Presen t illness Narrative Associated Problem(s): Type 2 diabetes mellitus with hyperglycemia, without long-term current use of insulin (CMS/HCC) Not checking BS and last A1C 10.1. [...] Problem(s): DDD (degenerative disc disease), lumbar Pain stable with medication and continue. Continue home PT exercises. Images from the original note were not included. Subjective Patient ID: Jay Tapia is a 49 y.o. male who presents for Follow-up (3 m). Follow up DM, HTN, back pain, and anxiety. Patient not checking BS often but it was improving after medication adjustment. Tries to eat well and stick to ADA diet. Denies signs of elevated BS such as polyuria, polyphagia or polydipsia. Checking BP PRN and typically controlled. BP elevated normal today. Taking medication daily and tolerating without side effects. Pain stable. Mild pain in low back and across top hips. Occasionally pain radiates into bilateral gluteal region and down legs. Pain with walking and standing. Pain worse with standing, bending, and lifting. Using medication PRN and works well to control pain. Able to work and stay active. Mood controlled with paxil. Not as down or sad and [...] PRN. DDD (degenerative disc disease), lumbar Pain stable with medication and continue. Continue home PT exercises. Generalized anxiety disorder (CMS/HCC) Symptoms controlled with paxil and continue. Type 2 diabetes mellitus with hyperglycemia, without long-term current use of insulin (CMS/HCC) - Primary Not checking BS and last A1C 10.1. Check BS daily. Stick to ADA diet and limit carbs. Relevant Orders Hemoglobin A1c MDD (major depressive disorder), recurrent episode, moderate (CMS/HCC) Symptoms controlled with paxil and continue. documented in this encounter [facility] 09-18-2024 History of Presen t illness Narrative [...] paxil and continue. documented in this encounter [facility] 07-31-2024 Telephone encounter Note Form atting of this note might be different from the original. [facility] 07-31-2024 Miscellaneous Notes Formattin g of this note might be different from the original. documented in this encounter [facility] 07-18-2024 History of Presen t illness Narrative [...] 20 MG tablet documented in this encounter [facility] 05-24-2024 History of Presen t illness Narrative [...] capsule tiZANidine (Zanaflex) 4 MG tablet HYDROcodone-acetaminophen ([facility]ohwer) 5-325 MG tablet Generalized anxiety disorder (CMS/HCC) [...] 10 MG tablet documented in this encounter [facility] Healthcare Evaluation note Diagnosis Type 2 diabetes mellitus with hyperglycemia, without long-term current use of insulin (CMS/HCC)- Primary Essential hypertension, benign (CMS/HCC) Essential hypertension, benign MDD (major depressive disorder), recurrent episode, moderate (CMS/HCC) Generalized anxiety disorder (CMS/HCC) Generalized anxiety disorder 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 pain documented in this encounter [facility] HealthcareEvaluation note* Diagnosis Type 2 diabetes mellitus [...] Generalized anxiety disorder documented in this encounter [facility] HealthcareEvaluation note* Diagnosis Type 2 diabetes mellitus [...] exam Routine general medical examination at a [facility] care [facility] Type 2 diabetes mellitus with hyperglycemia, without [...] Generalized anxiety disorder documented in this encounter [facility] HealthcareEvaluation note* Diagnosis Type 2 diabetes mellitus [...] exam Routine general medical examination at a [facility] care facility Type 2 diabetes mellitus with [...] hyperglycemia, without long-term current use of insulin (HCC)- Primary Essential hypertension, benign Essential hypertension, benign DDD (degenerative disc disease), cervical Degeneration of cervical intervertebral disc DDD (degenerative disc disease), lumbar Degeneration of lumbar or lumbosacral intervertebral disc MDD (major depressive disorder), recurrent episode, moderate (HCC) Generalized anxiety disorder Generalized anxiety disorder Annual physical exam Routine general medical examination at a health care facility Type 2 diabetes mellitus with hyperglycemia, without long-term current use of insulin (HCC)- Primary Essential hypertension, benign Essential hypertension, benign MDD (major depressive disorder), recurrent episode, moderate (HCC) Generalized anxiety disorder Generalized anxiety disorder 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 pain Type 2 diabetes mellitus with hyperglycemia, without long-term current use of insulin (HCC)- Primary Essential hypertension, benign Essential hypertension, benign 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 pain MDD (major depressive disorder), recurrent episode, moderate (HCC) Generalized anxiety disorder Generalized anxiety disorder Type 2 diabetes mellitus with hyperglycemia, without long-term current use of insulin (HCC)- Primary Essential hypertension, benign Essential hypertension, benign 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 pain MDD (major depressive disorder), recurrent episode, moderate (HCC) Generalized anxiety disorder Generalized anxiety disorder Type 2 diabetes mellitus with hyperglycemia, without long-term current use of insulin (HCC)- Primary Essential hypertension, benign Essential hypertension, benign 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 pain MDD (major depressive disorder), recurrent episode, moderate (HCC) Generalized anxiety disorder Generalized anxiety disorder Degeneration of intervertebral disc [...] pital DATE CREATED AUTHOR AUTHOR'S ORGANIZ ATION 12/21/2024 [facility] d[facility] Specialists EPIC Care Teams (unrecognized sec tion and content) Engraver Apprentice Decorative Relationship Specialty Start Date End Date Shun Escalona MD [address] [place] [address] PCP - General Family Medicine 03/19/24 Engraver Apprentice Decorative Relationship Specialty Start Date End Date Shun Escalona MD [address] [place] [address] PCP - General Family Medicine 03/19/24 Engraver Apprentice Decorative Relationship Specialty Start Date End Date Shun Escalona MD [address] [place] [phone] PCP - General Family Medicine 03/19/24 Engraver Apprentice Decorative Relationship Specialty Start Date End Date Shun Escalona MD [address] [place] [address] PCP - General Family Medicine 03/19/24 Engraver Apprentice Decorative Relationship Specialty Start Date End Date Shun Escalona MD [address] [place] [address] PCP - General Family Medicine 03/19/24 Engraver Apprentice Decorative Relationship Specialty Start Date End Date Shun Escalona MD [address] [place] [phone] PCP - General Family Medicine 03/19/24 Engraver Apprentice Decorative Relationship Specialty Start Date End Date Shun Escalona MD [address] [place] [address] PCP - General Family Medicine 03/19/24 Engraver Apprentice Decorative Relationship Specialty Start Date End Date Shun Escalona MD [address] [place] [address] PCP - General Family Medicine 03/19/24 Engraver Apprentice Decorative Relationship Specialty Start Date End Date Shun Escalona MD [address] [place] [address] PCP - General Family Medicine 03/19/24 Engraver Apprentice Decorative Relationship Specialty Start Date End Date Shun Escalona MD [address] [place] [phone] PCP - General Family Medicine 03/19/24 Engraver Apprentice Decorative Relationship Specialty Start Date End Date Shun Escalona MD [address] [place] [phone] PCP - General Family Medicine 03/19/24 Reason for Visit (unrecogniz ed section and content) Reason Comments Follow-up Anxiety pills not wo rking Back Pain Reason Comments Follow-up 1m Back Pain Getting worse Reason Onset Date Comments Med Refill 07/31/2024 Reason Onset Date Comments Med Refill 08/19/2024 Reason Onset Date Comments Med Refill 09/09/2024 Reason Comments Follow-up 2 m Reason Comments Med Refill Reason Onset Date Comments Med Refill 11/07/2024 Reason Onset Date Comments Med Refill 12/05/2024 Reason Comments Follow-up 3 m Reason Onset Date Comments Med Refill 01/30/2025 FOR RECORDS PERTAINING TO PATIENTS WHO ARE [...] BE BASED ON THE PRIMARY CLINICAL RECORDS. [employer] provides no warranty or guarantee of the accuracy or completeness of information in this document.
[2025-02-03 11:02] VITALS: BP 142/88; PULSE 88; TEMP 36.8; O2SAT 96; BMI 33.5
--- NOTE | 2025-02-03 11:13 | ECG_ITS ---
[facility] Test Date: 2025-02-03 Pat Name: PAMELA PERKINS Department: Room: - Gender: Male Authorization Specialist: : [id number] Requested By: [id number] Order Number: [id number] Reading MD: CELESTE SOLO M.D. Measurements Intervals [place] Rate: 79 P: 50 ME: 194 QRS: -2 QRSD: 94 T: 15 QT: 356 QTc: 390 Interpretive Statements 1100 Sinus rhythm 3634 Inferior myocardial infarction, age undetermined 9150 abnormal ECG Compared to ECG 08/16/2021 02:13:54 No significant changes Electronically Signed On 02-03-2025 22:08:24 EDT by CELESTE SOLO M.D.
[2025-02-03 11:26] VITALS: PULSE 79
--- NOTE | 2025-02-03 13:12 | ED.EXTPRO1 ---
HPI - Extremity Problem General Chief complaint: Extremity Problem, Nontraumatic Stated complaint: LEFT SHOULDER PAIN Time Seen by Provider: 02/03/25 11:12 Source: patient Mode of arrival: walk-in History of Present Illness HPI Narrative: The patient is a 49-year-old male who is coming to the ER with almost few month history of left shoulder pain that got worse over the last few days, he denies any fall or trauma but he mentioned that he was doing some mechanical work almost 6-month ago when he had the pain started Patient admitted on leaning on his left shoulder a lot at the habit The patient also denies any other concern of fever chills or any other complaints but he mentioned that he usually have back pain and he has been using his medication for that with no improvement with his shoulder Related Data Home Medications ?Medication ?Instructions ?Recorded ?Confirmed celecoxib 200 mg capsule 200 mg PO Q24H 02/03/25 02/03/25 Held on 02/03/25. Instructions: Resume on 02/15/25. glipizide 10 mg tablet 10 mg PO BID 02/03/25 02/03/25 lisinopril 20 mg tablet 20 mg PO DAILY 02/03/25 02/03/25 metformin 500 mg tablet,extended 500 mg PO BID 02/03/25 02/03/25 release 24 hr oxycodone-acetaminophen 5 mg-325 1 tab PO Q6H PRN pain 02/03/25 02/03/25 mg tablet paroxetine HCl 20 mg tablet 20 mg PO DAILY 02/03/25 02/03/25 tizanidine 4 mg tablet 4 mg PO Q6H PRN muscle spasticity 02/03/25 02/03/25 Previous Rx's ?Medication ?Instructions ?Recorded diclofenac sodium 75 mg 75 mg PO BID PRN pain #20 tabs 02/03/25 tablet,delayed release Allergies Allergy/AdvReac Type Severity Reaction Status Date / Time No Known Drug Allergies Allergy Verified 03/26/23 12:24 Review of Systems ROS Status of ROS 10 or more systems reviewed and unremarkable except as noted in history and below PFSH PFSH Social History Little interest or pleasure in doing things: not at all Feeling down, depressed, or hopeless: not at all Exam Narrative Exam Narrative: Nurses notes and vital signs reviewed and patient is not hypoxic. Left upper extremity exam: There is no limitation of movement of the left shoulder but the patient had tenderness upon palpation of the anterior aspect of the shoulder and there is no vascular injury detected General: Well-appearing and in no apparent distress. Skin: Warm, dry, no pallor noted. No rash. Head: Normocephalic, atraumatic. Neck: Supple, non-tender. Cardiovascular: Regular Rate and Rhythm without murmur, gallop or rub. Respiratory: No accessory muscle use or respiratory distress. Lungs are clear to auscultation, no wheezing, rales or rhonchi Chest Wall: no tenderness Back: No midline thoracic or lumbar vertebral tenderness. No CVA tenderness GI: Abdomen is soft, non-distended. Normal bowel sounds. No masses appreciated. No tenderness to palpation. No rebound, guarding, or rigidity noted. Neurological: A&O x4. No cranial nerve dysfunction observed. Constitutional Vital Signs, click to edit/add: Last Vital Signs Temp 98.2 F 02/03/25 11:02 Pulse 88 02/03/25 11:02 Resp 18 02/03/25 11:02 BP 142/88 H 02/03/25 11:02 Pulse Ox 96 02/03/25 11:02 O2 Del Method Room Air 02/03/25 11:02 Course Vital Signs Vital signs: Vital Signs Temperature 98.2 F 02/03/25 11:02 Pulse Rate 88 02/03/25 11:02 Respiratory Rate 18 02/03/25 11:02 Blood Pressure 142/88 H 02/03/25 11:02 Pulse Oximetry 96 02/03/25 11:02 Oxygen Delivery Method Room Air 02/03/25 11:02 Temperature 98.2 F 02/03/25 11:02 Pulse Rate 88 02/03/25 11:02 Respiratory Rate 18 02/03/25 11:02 Blood Pressure 142/88 H 02/03/25 11:02 Pulse Oximetry 96 02/03/25 11:02 Oxygen Delivery Method Room Air 02/03/25 11:02 MDM - Extremity (Nontraumatic) MDM Narrative Medical decision making narrative: The patient EKG showing sinus rhythm with a heart rate of [address] elevation or depression The patient presentation is mostly secondary to shoulder impingement syndrome as per his presentation The patient x-ray of the left shoulder showed no acute pathology Patient refused the Toradol in the ER he was discharged home with [place] and was referred to orthopedic as outpatient The patient is to follow up with primary care physician in next 2-3 days or to return to the emergency department should any of the signs or symptoms worsen or new symptoms develop. The patient agrees with the following Diagnosis and Treatment plan and the patient will be discharged home. Discharge Plan Discharge Chief Complaint: Extremity Problem, Nontraumatic Clinical Impression: Impingement of left shoulder Patient Disposition: Home, Self-Care Time of Disposition Decision: 13:13 Condition: Good Mode of Transportation: Private Vehicle Prescriptions / Home Meds: New diclofenac sodium 75 mg tablet,delayed release (DR/EC) 75 mg PO BID PRN (Reason: pain) Qty: 20 0RF Held celecoxib 200 mg capsule 200 mg PO Q24H Hold Instructions: Resume on 02/15/25. No Action glipizide 10 mg tablet 10 mg PO BID lisinopril 20 mg tablet 20 mg PO DAILY metformin 500 mg tablet extended release 24 hr 500 mg PO BID oxycodone-acetaminophen 5-325 mg tablet 1 tab PO Q6H PRN (Reason: pain) paroxetine HCl 20 mg tablet 20 mg PO DAILY tizanidine 4 mg tablet 4 mg PO Q6H PRN (Reason: muscle spasticity) Print Language: Persian Instructions: Shoulder Impingement Syndrome (ED) Referrals: Shun Encarnacion MD [Primary Care Provider, Family Practice] - 1 week Praveen Mcdonough MD [Physician] - 1 week Referral Note: [address], [place] [address] Discharge Date/Time: 02/03/25 13:23
== END 2025-02-03 13:23 | disposition home or self-care (01) ==
PROVIDERS: Emergency Provider Emergency Medicine; PCP Family Medicine
DX: M25.812 Other specified joint disorders, left shoulder (principal)
CPT/HCPCS: 73030; 93005; 99284

== ENCOUNTER 2025-03-15 10:00 | Outpatient (OUT) | payer MEDICAID, SELFPAY ==
--- OUTSIDE RECORDS SUMMARY | 2025-03-01 09:30 | XMS_ITS | Encounter Summary ---
Author Organization [facility] Address [address] [place] [address] Care Team Providers Care Financial Developer Name Role Phone Shun Encarnacion MD Primary Care Provider [phone] Jaja Yen TRACK RIDER Unavailable [phone] Reason for Visit * Rehabilitation - Outpatient (Routine) - Authorized Specialty Diagnoses / Procedures Referred By Yecenia molina Referred To Contact Physical Therapy Diagnoses Internal derangement of left shoulder Injury of left rotator cuff, subsequent encounter Procedures [place] OFFICE/OUTPATIENT NEW HIGH MDM 60 MINUTES Shun Encarnacion MD [address] [place] [address] Phone: tel: fax: Chely Farley PT Referral ID Status Reason Start Date Expiration Date Visits Requested Visits Authorized [id number] Authorized Specialty Services Required 02/27/2025 08/14/2025 30 30 Encounter Details Date Type Department Care Team (Late st Contact Info) Description 03/01/2025 9:30 AM EDT Evaluation [facility] [address] [place] [address] Chely Farley PT Internal derangement of left shoulder; Injury of left rotator cuff, subsequent encounter Social History Tobacco Use Types Packs/Day Years [...] often do you attend chur ch or baptist services? Never 05/23/2024 Do you belong to any clubs o r organizations such as mandaen groups, unions, fraternal or athletic groups, or [...] medical care, and heating? Patient declined 05/23/2024 [facility] Occup[facility] ional [facility] - Occupational Stress [...] any time in the past 12 m [facility], were you homeless or living in a [facility] (including now)? No 05/23/2024 Sex and Gender Information Value Date Recorded Sex Assigned at Not on file Legal Sex Male 10:24 AM EST Gender Identity Male 04/02/2024 4:11 PM EDT Sexual Orientation Not on file documented as of this encounter Progress Notes * Chely Farley, PT - 03/01/2025 9:30 AM EDT Images from the original note were not included. Physical Therapy Evaluation Visit Patient Name: Jay Tapia Today's Date: 03/01/2025 Encounter Diagnoses Name Primary? Internal derangement of left shoulder Injury of left rotator cuff, subsequent encounter Visit number: 1 Timed Code Treatment Minutes: 43 minutes Total Treatment Time: 53 minutes Time In: 0920 Time Out: 1015 History: Pt states his left shoulder has been bothering him for about 6 months. 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 Pt states he had to switch jobs for that reason and some other issues. Already taking medication for low back so was not put on any extra. Precautions: [place] Subjective: Left shoulder Pain: 7-8 with use Objective: PT Evaluation (03/01/2025) LEFT SHOULDER AROM: 125 degrees flexion, 62 degrees abduction, 52 degrees ER, IR to T/L junction PROM: 162 degrees flexion, 143 degrees abduction, 63 degrees ER Joint play: no significant laxity with post and inferior glides Strength: flex, ER, IR and abd 4/5 in neutral due to pain; lower and middle trap 3-/5 Palpation: Moderate tenderness left biceps tendon Special Test: pain with neers at 40 degrees elevation, positive Hanson Raul; pain with empty can testing; pain with Speeds testing Treatment: Education: HEP education with demonstration, Educated on Eval Findings and POC Manual Therapy: (10 minutes) Passive ROM, Joint mobilization, Soft Tissue Mobilization, Myofascial Release, Muscle Energy Technique, Neural Mobilization, Myofascial Cupping, Dry Needling, IASTM, and Scar mobilization as needed. Gentle oscillations and ROM to left shoulder in supine. Therapeutic Exercise: (14 minutes) Strength, Endurance, Flexibility, ROM, HEP, Neural Mobilization,Power, and Core Stability as needed. Pt performed and instructed in home program this date; writteninstructions and pictures issued with good pt understanding. Therapeutic Activity: Exercises to improve dynamic activities, functional tasks, functional mobility to return to prior activity level as needed. Neuromuscular re-education: Balance Training, Muscle Facilitation, Dynamic Stability, Core Stabilization, and Blood Flow Restriction Training (BFRT) as needed. Modalities: Heat, Ice, Electrical Stimulation, Ultrasound, Cervical Mechanical Traction, Lumbar Mechanical Traction, Iontophoresis, and Fluidotherapy as needed. CP to left shoulder x 10 minutes in sitting. Assessment: Pt is 49 y/o male with complaints of left shoulder pain and weakness. Pt with limited AROM left shoulder. Decrease strength with MMT. Pain with multiple special tests due to irritability of pain. No laxity note with inferior and posterior glides. Moderate tenderness left biceps tendon. Pt instructed in home program and will benefit from further PT. Outcome Measure: Upper Extremity Functional Index (UEFI): Rehab Diagnosis: left shoulder pain and weakness, limited ROM and mobility Short Term Goal: To be met in 2 weeks Goal 1: Pt to be instructed in home exercise program. Stock Grader Goals: To be met in 10 weeks Goal 1: Pt to report independence and compliance with home program. Goal 2: Pt to achieve 150 degrees of active left shoulder flexion to assist with overhead reaching. Goal 3: Pt to achieve 130 degrees of active left shoulder abduction to assist with grooming hair. Goal 4: Pt to achieve 4+ to 5/5 strength left shoulder in all planes to assist with functional tasks and lifting. Goal 5: Pt to achieve 4/5 strength left lower and middle traps to assist with proper function and mobility. Goal 6: Pt to score no less than 60/80 on UEFI indicating improved QOL. Pt will benefit from skilled PT for 2-3x/week from 03/01/2025 to 05/24/2025 to address the above impairments. I hereby deem this POC medically necessary. Please sign below. Date: Cosigned by Shun Encarnacion MD at 03/01/2025 12:30 PM EDT documented in this encounter Plan of Treatment Upcoming Encounters Date Type Department Care Team (Late st Contact Info) Description 03/19/2025 4:00 PM EDT Treatment [facility] [address] [facility] [address] [place] [address] Edna Coronel, SPECIAL EDUCATION MATH TEACHER 03/26/2025 4:00 PM EDT Treatment [facility] [address] [facility] [address] [place] [address] JesusSoto, SPECIAL EDUCATION MATH TEACHER 04/02/2025 4:00 PM EDT Treatment [facility] [address] [facility] [address] [place] [address] Edna Coronel, SPECIAL EDUCATION MATH TEACHER 04/04/2025 4:00 PM EDT Treatment [facility] [address] [facility] [address] [place] [address] Edna Coronel, SPECIAL EDUCATION MATH TEACHER 04/08/2025 11:30 AM EDT Office Visit [facility] [address] [place] [address] Shun Encarnacion MD [address] [place] [address] 04/08/2025 4:00 PM EDT Treatment [facility] [address] [address] [place] [address] Chely Farley, DUANE 04/10/2025 9:00 AM EDT Office Visit [facility] [address] [place] [address] Naveed Skaggs PA [address] [place] [address] documented as of this encounter Visit Diagnoses Diagnosis Internal derangement of left shoulder Injury of left rotator cuff, subsequent encounter documented in this encounter Care Teams Financial Developer Relationship Specialty Start Date End Date Shun Encarnacion MD [address] [place] [address] PCP - General Family Medicine 03/19/24 Jaja Yen NP [address] [place] [address] PCP - NOMDelia THURMAN 11/13/24 5 documented as of this encounter
--- OUTSIDE RECORDS SUMMARY | 2025-03-05 16:00 | XMS_ITS | Encounter Summary ---
Author Organization [facility] Address [address] [place] [address] Care Team Providers Care Spa Experience Coordinator Name Role Phone Shun Encarnacion MD Primary Care Provider [phone] Jaja Yen STUDENT OUTREACH COORDINATOR Unavailable [phone] Reason for Visit * Rehabilitation - Outpatient (Routine) - Authorized Specialty Diagnoses / Procedures Referred By Yecenia molina Referred To Contact Physical Therapy Diagnoses Internal derangement of left shoulder Injury of left rotator cuff, subsequent encounter Procedures [place] OFFICE/OUTPATIENT NEW HIGH MDM 60 MINUTES Shun Encarnacion MD [address] [place] [address] Phone: tel: fax: Chely Farley PT Referral ID Status Reason Start Date Expiration Date Visits Requested Visits Authorized [id number] Authorized Specialty Services Required 02/27/2025 08/14/2025 30 30 Encounter Details Date Type Department Care Team (Late st Contact Info) Description 03/05/2025 4:00 PM EDT Treatment [facility] [address] [place] [address] Soto Lee PTA Internal derangement of left shoulder (Primary Dx); Injury of left rotator cuff, subsequent encounter [...] often do you attend chur ch or adventist services? Never 05/23/2024 Do you belong to any clubs o r organizations such as uatsdin groups, unions, fraternal or athletic groups, or [...] medical care, and heating? Patient declined 05/23/2024 [facility]at ional Health - [...] any time in the past 12 m [facility], were you homeless or living in a care home (including now)? No 05/23/2024 Sex and Gender Information Value Date Recorded Sex Assigned at Not on file Legal Sex Male 10:24 AM EST Gender Identity Male 04/02/2024 4:11 PM EDT Sexual Orientation Not on file documented as of this encounter Progress Notes * Soto Lee, FAIRGROUND OPERATOR - 03/05/2025 4:00 PM EDT Images from the original note were not included. Physical Therapy Treatment Visit Patient Name: Jay Tapia Today's Date: 03/05/2025 Encounter Diagnoses Name Primary? Internal derangement of left shoulder Yes Injury of left rotator cuff, subsequent encounter Visit number: 2 Timed Code Treatment Minutes: 30 minutes Total Treatment Time: 45 minutes Time In: 1555 Time Out: 1640 History: Pt states his left shoulder has been bothering him for about 6 months. 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 Pt states he had to switch jobs for that reason and some other issues. Already taking medication for low back so was not put on any extra. Precautions: [place] Subjective: Pt reports feeling pretty good this date, no adverse response to initial visit. Pain: 7-810 with use Objective: PT Evaluation (03/01/2025) LEFT [...] to left shoulder in supine. Therapeutic Exercise: (20 minutes) Strength, Endurance, Flexibility, ROM, HEP, Neural [...] weakness. Pt with limited AROM left shoulder. Progressed for left shoulder mobility, no increased pain. Pt guarded with MT, gentle PROM and STM. Pt instructed in home program and will benefit from further PT. Outcome Measure: Upper Extremity Functional Index (UEFI): 2080 Rehab Diagnosis: left shoulder pain and weakness, limited ROM and mobility Short Term Goal: To be met in 2 weeks Goal 1: Pt to be instructed in home exercise program. Prison Goals: To be met in 10 weeks [...] necessary. Please sign below. Date: Cosigned by Chely Farley, PT at 03/06/2025 12:19 PM EDT documented in this encounter Plan of Treatment Upcoming Encounters Date Type Department Care Team (Late st Contact Info) Description 03/19/2025 4:00 PM EDT Treatment [facility] [address] [facility] [address] [place] [address] Edna Coronel, FAIRGROUND OPERATOR 03/26/2025 4:00 PM EDT Treatment [facility] [address] [facility] [address] [place] [address] Soto Lee, FAIRGROUND OPERATOR 04/02/2025 4:00 PM EDT Treatment [facility] [address] [facility] [address] [place] [address] Edna Coronel, FAIRGROUND OPERATOR 04/04/2025 4:00 PM EDT Treatment [facility] [address] [facility] [address] [place] [address] Edna Coronel, FAIRGROUND OPERATOR 04/08/2025 11:30 AM EDT Office Visit [facility] [address] [place] [address] Shun Encarnacion MD [address] [place] [address] 04/08/2025 4:00 PM EDT Treatment [facility] [address] [place] [address] [place] [address] Chely Farley, DUANE 04/10/2025 9:00 AM EDT Office Visit [facility] [address] [place] [address] Naveed Skaggs PA [address] [place] [address] documented as of this encounter Visit Diagnoses Diagnosis Internal derangement of left shoulder- Primary Injury of left rotator cuff, subsequent encounter documented in this encounter Care Teams Spa Experience Coordinator Relationship Specialty Start Date End Date Shun Encarnacion MD [address] [place] [address] PCP - General Family Medicine 03/19/24 Jaja Yen NP [address] [place] [address] PCP - [facility] Oquendo KETTLE FRY COOK OPERATOR 11/13/24 5 documented as of this encounter
--- OUTSIDE RECORDS SUMMARY | 2025-03-06 10:00 | XMS_ITS | Encounter Summary ---
Author Organization [facility] Address [address] [place] [address] Care Team Providers Care Cardiothoracic Physiotherapist Name Role Phone Shun Escalona MD Primary Care Provider [phone] Jaja Yen MANAGER PRIMARY Unavailable [phone] Reason for Visit * Reason Comments Pain * Consultation (Routine) - Closed Specialty Diagnoses / Procedures Referred By Yecenia molina Referred To Contact Orthopaedic Surgery Diagnoses Internal derangement of left shoulder Injury of left rotator cuff, subsequent encounter Shun Escalona MD [address] [place] [address] Phone: tel: fax: Jr. Jamie Frances, [address] [address] Phone: tel: fax: Referral ID Status Reason Start Date Expiration Date V isits Requested Visits Authorized [id number] Closed Specialty Services Required 02/27/2025 08/26/2025 1 1 Encounter Details Date Type Department Care Team (Late st Contact Info) Description 03/06/2025 10:00 AM EDT [facility] [address] [place] [address] Naveed Skaggs PA [address] [place] [address] Acute pain of left shoulder (Primary Dx); Internal derangement of left shoulder; Injury of [...] often do you attend chur ch or worship services? Never 05/23/2024 Do you belong to any clubs o r organizations such as caodaism groups, unions, fraternal or athletic groups, or [...] medical care, and heating? Patient declined 05/23/2024 [facility] of Occupat ional Health - Occupational Stress [...] time in the past 12 m [facility], were you homeless or living in a custodial (including now)? No 05/23/2024 Sex and Gender Information Value Date Recorded Sex Assigned at Not on file Legal Sex Male 10:24 AM EST Gender Identity Male 04/02/2024 4:11 PM EDT Sexual Orientation Not on file documented as of this encounter Progress Notes * BRENNA Aaron - 03/06/2025 10:00 AM EDT Images from the original note were not included. Orthopedic Office note: NAME: Jay Tapia : 1975 NEW PT; DR ESCALONA REFERRAL WITH LT SHOULDER PAIN ~9MO- NOTICED AFTER DOING REPETITIVE WORK - DR ESCALONA TX; XRAY, PT, MRI ORDERED (NOT COMPLETED YET) XRAY LT SHOULDER [facility] 02/03/25 MRI LT SHOULDER ORDERED PT [facility] PAIN LATERAL SHOULDER- IN THE SOCKET - CRUNCHING - LIMITED ROM- DIFFICULTY RAISING ABOVE SHOULDERLEVEL- PT TRIES NOT TO USE LT ARM BECAUSE IT WILL HURT FOR DAYS IF HE DOES- SOME WEAKNESS- DENIES N/T- +PERCOCET PER DR ESCALONA - PT STATES HE JUST STARTED PHYSICAL THERAPY 1 DAY AGO Physical Exam General Appearance: Normal. Respiratory: No acute distress Musculoskeletal: Exam concerning for left shoulder impingement. Cuff tear can not be ruled out. He is also at risk for a SLAP lesion given his exam. Skin: Warm and dry, no rash. Neurological: Normal. Shoulder Musculoskeletal Exam Inspection Left Left shoulder inspection is normal. Ecchymosis: none Peripheral edema: none Atrophy: none Masses: none Palpation Left Crepitus: no crepitus Increased warmth: none Tenderness: present Anterior shoulder: mild AC joint: mild Lateral arm: mild Range of Motion Right Right shoulder active abduction: + pain passing 90 degrees. Left Left shoulder range of motion is normal. Active ROM: pain. Passive ROM: pain. Active forward elevation: 160. Passive forward elevation: 180. Shoulder active abduction: 160. Passive abduction: 180. Active external rotation at side: 80. Passive external rotation at side: 90. Internal rotation: L4. Strength Left External rotation: 5/5. Internal rotation: 5/5. Abduction: 5/5. Abduction is affected by pain. Biceps: 5/5. Triceps: 5/5. Neurovascular Left Radial pulse: normal and 2+ Capillary refill: <3 sec Axillary nerve sensory distribution: normal Scapula Left Left shoulder scapula is normal. Position: normal Winging: none Special Tests Left Rotator Cuff Signs Neer's test: positive Hanson test: positive Painful arc test: positive Biceps/viki Signs Clicking/popping: positive Speed's test: negative Instability Signs Anterior apprehension test: positive General Constitutional: appears stated age Neurological: alert and oriented x3 No orders of the defined types were placed in this encounter. Procedures Results - Imaging: - X-ray from [facility] shows no acute bony process or significant degenerative changes ICD-10-CM 1. Acute pain of left shoulder M25.512 2. Internal derangement of left shoulder M24.812 Ambulatory referral to Orthopaedic Surgery methylPREDNISolone (Medrol Dospak) 4 MG tablets 3. Injury of left rotator cuff, subsequent encounter S46.002D Ambulatory referral to Orthopaedic Surgery Assessment & Plan Left shoulder pain Exam concerning for left shoulder impingement. Cuff tear cannot be ruled out. He is also at risk for a SLAP lesion given his exam. Pain has been persistent for the past 9 months with varying degrees of intensity. Diagnostic plan: An MRI has been ordered by his family doctor, which is agreed upon, and we will wait to see how he responds to therapy and the findings on the MRI. X-ray from [facility] reviewed showing no acute bony process and no significant degenerative changes. Treatment plan: Medrol Dosepak prescribed with a discussion of risks and benefits. Physical therapywill be attempted. Clinical decision making: Surgical and nonsurgical treatment options were discussed. Follow-up: 5 wks pending MRI Questions answered in laymen terms at the bedside. The diagnosis, home exercise plan and any ongoing restrictions/ recommendations reviewed. If unable to be reached in office, I recommend evaluation at nearest Emergency Room if any symptoms worsened or new symptoms develop for requiring urgent evaluation. Visit was preformed using [employer] Power speech recognition. documented in this encounter Plan of Treatment Upcoming Encounters Date Type Department Care Team (Late st Contact Info) Description 03/19/2025 4:00 PM EDT Treatment [facility] [address] [facility] [facility] [address] [place] [address] Edna Coronel, IN SERVICE EDUCATION TEACHER 03/26/2025 4:00 PM EDT Treatment [facility] [address] [facility] [address] [place] [address] Soto Lee, IN SERVICE EDUCATION TEACHER 04/02/2025 4:00 PM EDT Treatment [facility] [address] [facility] [address] [place] [address] Edna Coronel, IN SERVICE EDUCATION TEACHER 04/04/2025 4:00 PM EDT Treatment [facility] [address] [facility] [address] [place] [address] Edna Coronel, IN SERVICE EDUCATION TEACHER 04/08/2025 11:30 AM EDT Office Visit [facility] [address] [place] [address] Shun Escalona MD [address] [place] [address] 04/08/2025 4:00 PM EDT Treatment [facility] [address] [place] [address] [place] [address] Chely Farley, PT 04/10/2025 9:00 AM EDT Office Visit [facility] [address] [place] [address] Naveed Skaggs PA [address] [place] [address] documented as of this encounter Visit Diagnoses Diagnosis Acute pain of left shoulder- Primary Internal derangement of left shoulder Injury of left rotator cuff, subsequent encounter documented in this encounter Care Teams Cardiothoracic Physiotherapist Relationship Specialty Start Date End Date Shun Escalona MD [address] [place] [address] PCP - General Family Medicine 03/19/24 Jaja Yen NP [address] [place] [address] PCP - [facility] THURMAN 11/13/24 5 documented as of this encounter
--- OUTSIDE RECORDS SUMMARY | 2025-03-07 16:00 | XMS_ITS | Encounter Summary ---
Author Organization [facility] Address [address] [place] [address] Care Team Providers Care Development Executive Name Role Phone Shun Encarnacion MD Primary Care Provider [phone] Jaja Yen ELECTRIC HOIST OPERATOR Unavailable Reason for Visit * Rehabilitation - Outpatient (Routine) - Authorized Specialty Diagnoses / Procedures Referred By Yecenia molina Referred To Contact Physical Therapy Diagnoses Internal derangement of left shoulder Injury of left rotator cuff, subsequent encounter Procedures OR OFFICE/OUTPATIENT NEW HIGH MDM 60 MINUTES Shun Encarnacion MD [address] [place] [address] Phone: tel: fax: Chely Farley PT Referral ID Status Reason Start Date Expiration Date Visits Requested Visits Authorized [id number] Authorized Specialty Services Required 02/27/2025 08/14/2025 30 30 Encounter Details Date Type Department Care Team (Late st Contact Info) Description 03/07/2025 4:00 PM EDT Treatment [facility] [address] [place] [address] Soto Lee PTA Internal derangement of left [...] often do you attend chur ch or caodaism services? Never 05/23/2024 Do you belong to any clubs o r organizations such as sabianism groups, unions, fraternal or athletic groups, or [...] medical care, and heating? Patient declined 05/23/2024 [facility] Occupat ional Health - Occupational [...] any time in the [facility] m [facility], were you homeless or living in a chcf (including now)? No 05/23/2024 Sex and Gender Information Value Date Recorded Sex Assigned at Not on file Legal Sex Male 10:24 AM EST Gender Identity Male 04/02/2024 4:11 PM EDT Sexual Orientation Not on file documented as of this encounter Progress Notes * Soto Lee, RN MDS - 03/07/2025 4:00 PM EDT Images from the original note were not included. Physical Therapy Treatment Visit Patient Name: Jay Tapia Today's Date: 03/07/2025 Encounter Diagnoses Name Primary? Internal derangement of left shoulder Yes Injury of left rotator cuff, subsequent encounter Visit number: 3 Timed Code Treatment Minutes: 48 minutes Total Treatment Time: 58 minutes Time In: 1550 Time Out: 1648 History: Pt states his left shoulder has been bothering him for about 6 months. 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 Pt states he had to switch jobs for that reason and some other issues. Already taking medication for low back so was not put on any extra. Precautions: [place] Subjective: Pt reports feeling pretty good this date, no adverse response to progressions last visit. Pt had appointment with ortho and is to continue PT, possible MRI being scheduled. Pain: 7-8 with use Objective: PT Evaluation [...] on Eval Findings and POC Manual Therapy: (15 minutes) Passive ROM, Joint mobilization, Soft Tissue Mobilization, Myofascial Release, Muscle Energy Technique, Neural Mobilization, Myofascial Cupping, Dry Needling, IASTM, and Scar mobilization as needed. Gentle oscillations and ROM to left shoulder in supine. Therapeutic Exercise: (33 minutes) Strength, Endurance, Flexibility, ROM, HEP, Neural [...] weakness. Pt with limited AROM left shoulder. Continued for left shoulder mobility, no increased pain. Introduced gentle step out isometrics and postural strengthening, no increased pain. Decreased guarding with MT, gentle PROMand STM. Pt instructed in home program and will benefit from further PT. Outcome Measure: Upper Extremity Functional Index (UEFI): Rehab Diagnosis: left shoulder pain and weakness, limited ROM and mobility Short Term Goal: To be met in 2 weeks Goal 1: Pt to be instructed in home exercise program. Half-Way Goals: To be met in 10 weeks [...] Please sign below. Date: Cosigned by Chely Farley PT at 03/08/2025 2:37 PM EDT documented in this encounter Plan of Treatment Upcoming Encounters Date Type Department Care Team (Late st Contact Info) Description 03/19/2025 4:00 PM EDT Treatment [facility] [address] [facility] [address] [place] [address] Edna Coronel, RN MDS 03/26/2025 4:00 PM EDT Treatment [facility] [address] [facility] [address] [place] [address] Soto Lee, RN MDS 04/02/2025 4:00 PM EDT Treatment [facility] [address] [facility] [address] [place] [address] Edna Coronel, RN MDS 04/04/2025 4:00 PM EDT Treatment [facility] [address] [facility] [address] [place] [address] Edna Coronel, RN MDS 04/08/2025 11:30 AM EDT [facility] [address] [place] [address] Shun Encarnacion MD [address] [place] [address] 04/08/2025 4:00 PM EDT Treatment [facility] [address] [address] [place] [address] Chely Farley, DUANE 04/10/2025 9:00 AM EDT Office Visit [facility] [address] [place] [address] Naveed Skaggs PA [address] [facility] [place] [address] documented as of this encounter Visit Diagnoses Diagnosis Internal derangement of left shoulder- Primary Injury of left rotator cuff, subsequent encounter documented in this encounter Care Teams Development Executive Relationship Specialty Start Date End Date Shun Encarnacion MD [address] [place] [address] PCP - General Family Medicine 03/19/24 Jaja Yen NP [address] [place] [address] PCP - BARBI THURMAN 11/13/24 5 documented as of this encounter
--- OUTSIDE RECORDS SUMMARY | 2025-03-12 16:00 | XMS_ITS | Encounter Summary ---
Author Organization [facility] Address [address] [place] [address] Care Team Providers Care Field Artillery Cannoneer Name Role Phone Shun Encarnacion MD Primary Care Provider [phone] Jaja Yen SAILING OFFICER Unavailable [phone] Reason for Visit * Rehabilitation - Outpatient (Routine) - Authorized Specialty Diagnoses / Procedures Referred By Yecenia molina Referred To Contact Physical Therapy Diagnoses Internal derangement of left shoulder Injury of left rotator cuff, subsequent encounter Procedures AL OFFICE/OUTPATIENT NEW HIGH MDM 60 MINUTES Shun Encarnacion MD [address] [place] [address] Phone: tel: fax: Chely Farley PT Referral ID Status Reason Start Date Expiration Date Visits Requested Visits Authorized [id number] Authorized Specialty Services Required 02/27/2025 08/14/2025 30 30 Encounter Details Date Type Department Care Team (Late st Contact Info) Description 03/12/2025 4:00 PM EDT Treatment [facility] [address] [place] [address] Soto Lee PTA Internal derangement of left [...] often do you attend chur ch or samaritan services? Never 05/23/2024 Do you belong to any clubs o r organizations such as sikhism groups, unions, fraternal or athletic groups, or [...] medical care, and heating? Patient declined 05/23/2024 [facility] Occupat ional Health - [...] time in the past 12 m [facility], were you homeless or living in a long term (including now)? No 05/23/2024 Sex and Gender Information Value Date Recorded Sex Assigned at Not on file Legal Sex Male 10:24 AM EST Gender Identity Male 04/02/2024 4:11 PM EDT Sexual Orientation Not on file documented as of this encounter Progress Notes * Soto Lee, MAINTENANCE AIDE - 03/12/2025 4:00 PM EDT Images from the original note were not included. Physical Therapy Treatment Visit Patient Name: Jay Tapia Today's Date: 03/12/2025 Encounter Diagnoses Name Primary? Internal derangement of left shoulder Yes Injury of left rotator cuff, subsequent encounter Visit number: 4 Timed Code Treatment Minutes: 30 minutes Total Treatment Time: 50 minutes Time In: 1600 Time Out: 1650 History: Pt states his left shoulder has been bothering him for about 6 months. 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 Pt states he had to switch jobs for that reason and some other issues. Already taking medication for low back so was not put on any extra. Precautions: [place] Subjective: Pt reports feeling pretty good this date, no adverse response to progressions last visit. Pain: 7-03/24 with use Objective: PT Evaluation (03/01/2025) LEFT [...] on Eval Findings and POC Manual Therapy: () Passive ROM, Joint mobilization, Soft Tissue Mobilization, Myofascial Release, Muscle Energy Technique, Neural Mobilization, Myofascial Cupping, Dry Needling, IASTM, and Scar mobilization as needed. Gentle oscillations and ROM to left shoulder in supine. Therapeutic Exercise: (30 minutes supervised, 50 minutes total) Strength, Endurance, Flexibility, ROM, HEP, Neural Mobilization, Power, and Core Stability as needed. Pt performed and instructed in home program this date; written instructions and pictures issued with good pt understanding. [...] as needed. CP to left shoulder x declined. Assessment: Pt is 49 y/o male with complaints of left shoulder pain and weakness. Pt with limited AROM left shoulder. Continued for left shoulder mobility, no increased pain. Progressed shoulder and postural strengthening, no increased pain. Pt will benefit from further PT. Outcome Measure: Upper Extremity Functional Index (UEFI): 20/80 Rehab Diagnosis: left shoulder pain and weakness, limited ROM and mobility Short Term Goal: To be met in 2 weeks Goal 1: Pt to be instructed in home exercise program. Motor Equipment Sergeant Goals: To be met in 10 weeks [...] Date: Cosigned by Chely Farley, PT at 03/13/2025 5:34 PM EDT documented in this encounter Plan of Treatment Upcoming Encounters Date Type Department Care Team (Late st Contact Info) Description 03/19/2025 4:00 PM EDT Treatment [facility] [address] [facility] [address] [place] [address] Edna Coronel, MAINTENANCE AIDE 03/26/2025 4:00 PM EDT Treatment [facility] [address] [facility] [address] [place] [address] Soto Lee, MAINTENANCE AIDE 04/02/2025 4:00 PM EDT Treatment [facility] [address] [facility] [address] [place] [address] Edna Coronel, MAINTENANCE AIDE 04/04/2025 4:00 PM EDT Treatment [facility] [address] [facility] [address] [place] [address] Edna Coronel, MAINTENANCE AIDE 04/08/2025 11:30 AM EDT Office Visit [facility] [address] [place] [address] Shun Encarnacion MD [address] [place] [address] 04/08/2025 4:00 PM EDT Treatment [facility] [address] [address] [place] [address] Chely Farley, DUANE 04/10/2025 9:00 AM EDT Office Visit [facility] [address] [place] [address] Naveed Skaggs PA [address] [place] [address] documented as of this encounter Visit Diagnoses Diagnosis Internal derangement of left shoulder- Primary Injury of left rotator cuff, subsequent encounter documented in this encounter Care Teams Field Artillery Cannoneer Relationship Specialty Start Date End Date Shun Encarnacion MD [address] [place] [address] PCP - General Family Medicine 03/19/24 Jaja Yen NP [address] [place] [address] PCP - NOM[facility] THURMAN 11/13/24 5 documented as of this encounter
--- OUTSIDE RECORDS SUMMARY | 2025-03-14 15:00 | XMS_ITS | Encounter Summary ---
Author Organization [facility] Address [address] [place] [address] Care Team Providers Care Seismograph Chief Name Role Phone Shun Encarnacion MD Primary Care Provider [phone] Jaja Yen CROWN ATTACHER Unavailable [phone] Reason for Visit * Rehabilitation - Outpatient (Routine) - Authorized Specialty Diagnoses / Procedures Referred By Yecenia molina Referred To Contact Physical Therapy Diagnoses Internal derangement of left shoulder Injury of left rotator cuff, subsequent encounter Procedures SC OFFICE/OUTPATIENT NEW HIGH MDM 60 MINUTES Shun Encarnacion MD [address] [place] [address] Phone: tel: fax: Chely Farley PT Referral ID Status Reason Start Date Expiration Date Visits Requested Visits Authorized [id number] Authorized Specialty Services Required 02/27/2025 08/14/2025 30 30 Encounter Details Date Type Department Care Team (Late st Contact Info) Description 03/14/2025 3:00 PM EDT Treatment [facility] [address] [place] [address] Edna Coronel PTA Internal derangement of left shoulder (Primary [...] any clubs o r organizations such as rastafarian groups, unions, fraternal or athletic groups, or [...] medical care, and heating? Patient declined 05/23/2024 [facility] of Occupat ional Health - Occupational Stress [...] any time in the past 12 m [facility], were you homeless or living in a half-way (including now)? No 05/23/2024 Sex and Gender [...] [facility] [address] [facility] [address] [place] [address] Edna Coronel, FACILITIES ASSISTANT 03/26/2025 4:00 PM EDT Treatment [facility] [address] [facility] [address] [place] [address] Soto Lee, FACILITIES ASSISTANT 04/02/2025 4:00 PM EDT Treatment [facility] [address] [facility] [address] [place] [address] Edna Coronel, FACILITIES ASSISTANT 04/04/2025 4:00 PM EDT Treatment [facility] [address] [facility] [address] [place] [address] Edna Coronel, FACILITIES ASSISTANT 04/08/2025 11:30 AM EDT Office Visit [facility] [address] [place] [address] Shun Encarnacion MD [address] [place] [address] 04/08/2025 4:00 PM EDT Treatment [facility] [address] [address] [place] [address] Chely Farley, DUANE 04/10/2025 9:00 AM EDT Office Visit [facility] [address] [place] [address] Naveed Skaggs, PA [address] [place] [address] documented as of this encounter Visit Diagnoses Diagnosis Internal derangement of left shoulder- Primary Injury of left rotator cuff, subsequent encounter documented in this encounter Care Teams Seismograph Chief Relationship Specialty Start Date End Date Shun Encarnacion MD [address] [place] [address] PCP - General Family Medicine 03/19/24 Jaja Yen NP [address] [place] [address] PCP - BARBI THURMAN 11/13/24 5 documented as of this encounter
--- OUTSIDE RECORDS SUMMARY | 2025-03-15 10:08 | XMS_ITS | Encounter Summary ---
Author Organization [facility] Address [address] [place] [address] Care Team Providers Care Chemical Technician Name Role Phone Shun Encarnacion MD Primary Care Provider [phone] Jaja Yen COKE DRAWER Unavailable [phone] Encounter Details Date Type Department Care Team (Late st Contact Info) Description 03/01/2025 Plan of Care Documentation [facility] [address] [place] [address] Social History Tobacco Use Types Packs/Day Years [...] often do you attend chur ch or protestant services? Never 05/23/2024 Do you belong to any clubs o r organizations such as adventist groups, unions, fraternal or athletic groups, or [...] medical care, and heating? Patient declined 05/23/2024 [facility] - Occupational [...] any time in the past [address] [facility], were you homeless or living in a usp (including now)? No 05/23/2024 Sex and Gender [...] [facility] [place] [facility] [address] [facility] [address] [place] [address] Edna Coronel, VALIDATION INTERN 03/26/2025 4:00 PM EDT Treatment [facility] [place] [facility] [address] [facility] [address] [place] [address] Soto Lee, VALIDATION INTERN 04/02/2025 4:00 PM EDT Treatment [facility] [place] [facility] [address] [facility] [address] [place] [address] Edna Coronel, VALIDATION INTERN 04/04/2025 4:00 PM EDT Treatment [facility] [place] [facility] [address] [facility] [address] [place] [address] Edna Coronel, VALIDATION INTERN 04/08/2025 11:30 AM EDT Office Visit [facility] [address] [place] [address] Shun Encarnacion MD [address] [place] [address] 04/08/2025 4:00 PM EDT Treatment [facility] [place] [facility] [address] [facility] [address] [place] [address] Chely Farley, PT 04/10/2025 9:00 AM EDT Office Visit [facility] [address] [place] [address] Naveed Skaggs PA [address] [place] [place] [address] documented as of this encounter Visit Diagnoses Not on filedocumented in this encounter Care Teams Chemical Technician Relationship Specialty Start Date End Date Shun Encarnacion MD [address] [place] [address] PCP - General Family Medicine 03/19/24 Jaja Yen NP [address] [place] [address] PCP - [facility] TUBULAR RIVETER 11/13/24 5 documented as of this encounter
--- OUTSIDE RECORDS SUMMARY | 2025-03-15 10:08 | XMS_ITS | Encounter Summary ---
Author Organization [facility] Address [address] [place] [address] Care Team Providers Care Towboat Captain Name Role Phone Shun Encarnacion MD Primary Care Provider [phone] Jaja Yen RADIOLOGY TEACHER Unavailable [phone] Encounter Details Date Type Department Care Team (Latest Contact Info) Description 03/14/2025 Travel Social History Tobacco Use Types Packs/Day Years [...] often do you attend chur ch or druze services? Never 05/23/2024 Do you belong to any clubs o r organizations such as zoroastrianism groups, unions, fraternal or athletic groups, or [...] medical care, and heating? Patient declined [facility] - Occupational Stress Questionnaire Answer Date Recorded [...] any time in the past 12 m [facility], were you homeless or living in a fci (including now)? No 05/23/2024 Sex and Gender [...] [place] [facility] [address] [facility] [address] [place] [address] Edna Coronel, WELL DRILL OPERATOR 03/26/2025 4:00 PM EDT Treatment [facility] [place] [facility] [address] [facility] [address] [place] [address] Soto Lee, WELL DRILL OPERATOR 04/02/2025 4:00 PM EDT Treatment [facility] [place] [facility] [address] [facility] [address] [place] [address] Homer Edna, WELL DRILL OPERATOR 04/04/2025 4:00 PM EDT Treatment [facility] [place] [facility] [address] [facility] [address] [place] [address] Homer Edna, WELL DRILL OPERATOR 04/08/2025 11:30 AM EDT Office Visit [facility] [address] [place] [address] Shun Encarnacion MD [address] [place] [address] 04/08/2025 4:00 PM EDT Treatment [facility] [place] [facility] [address] [facility] [address] [place] [address] Chely Farley, PT 04/10/2025 9:00 AM EDT Office Visit [facility] [address] [place] [phone] Naveed Skaggs PA [address] [place] [address] documented as of this encounter Visit Diagnoses Not on filedocumented in this encounter Care Teams Towboat Captain Relationship Specialty Start Date End Date Shun Encarnacion MD [address] [place] [address] PCP - General Family Medicine 03/19/24 Jaja Yen NP [address] [place] [address] PCP - [facility] LOADMASTER 11/13/24 5 documented as of this encounter
--- OUTSIDE RECORDS SUMMARY | 2025-03-15 10:08 | XMS_ITS | Clinical Summary ---
Author Organization [employer] Address [id number] [address] [place] [address] Care Team Providers Care Frog Shaker Name Role Phone Shun Encarnacion MD Primary Care Provider [phone] Allergies No known active allergies Medications omeprazole (PriLOSEC) 20 mg capsule Take 20 mg by mouth daily. Active lisinopriL (PRINIVIL,ZESTR IL) 10 mg tablet Take by mouth daily. Active ibuprofen (ADVIL,MOTRIN) 800 mg tablet Take 1 tablet (800 mg total) by mouth 3 (three) times a day. 21 tablet 08/19/2020 Active lidocaine (LIDODERM) 5 % Place 1 patch on the skin daily. Remove & Discard patch within 12 hours or as directed by 15 patch 08/19/2020 Active cyclobenzaprine (FLEXERIL) 10 mg tablet Take 1 tablet (10 mg total) by mouth 2 (two) times a day as needed for muscle spasms. 10 tablet 08/19/2020 Active Social History Tobacco Use Types Packs/Day Years Used Date Smoking Tobacco: Every Day Vaping/E-cigarettes Smokeless Tobacco: Never Tobacco Cessation:Ready to Q uit: Not Asked; Counseling Given: Not Answered Alcohol Use Standard Drinks/Week Comments Not Currently 0 (1 standard drink = 0.6 oz pur e alcohol) Childcare Answer Date Recorded Childcare Unknown 05/04/2019 Employment Answer Date Recorded Employment Unknown 05/04/2019 Hunger Screening Answer Date Recorded Within the past 12 months we worried whether our food would run out before we got money to buy more. Never True 07/14/2023 Within the past 12 months th e food we bought just didn't last and we didn't have money to get more. Never True 07/14/2023 Purpose - Life Answer Date Recorded Purpose and direction in life Unknown Sex and Gender Information Value Date Recorded Sex Assigned at Not on file Legal Sex Male 4:40 PM EDT Gender Identity Not on file Sexual Orientation Not on file Last Filed Vital Signs Vital Sign Reading Time Taken Comments Blood Pressure 116/89 07/14/2023 4:22 PM EST Pulse 88 07/14/2023 4:22 PM EST Temperature 36.8 C (98.2 F) 07/14/2023 4:22 PM EST Respiratory Rate 18 07/14/2023 4:22 PM EST Oxygen Saturation 97% 07/14/2023 4:22 PM EST Inhaled Oxygen Concentration - - Weight 113.4 kg (250 lb) 08/19/2020 10:16 PM EST Height 180.3 cm (5' 11 ) 08/19/2020 10:16 PM EST Body Mass Index 34.87 08/19/2020 10:16 PM EST Plan of Treatment Health Maintenance Due Date Last Done Comments Depression Screening 1988 Adult BMI Screening 1994 COVID-19 Vaccine ( season) 2024, 05/16/2021 Tobacco Screening 07/14/2024 07/14/2023 Influenza Vaccine 04/15/2025 DTaP,Tdap and Td Vaccines (2 - Tdap) 12/29/203112/13 Medical Devices Not on file Insurance [employer] Care Teams Frog Shaker Relationship Specialty Start Date End Date Shun Encarnacion MD PCP - General Family Medicine 05/04/19
--- OUTSIDE RECORDS SUMMARY | 2025-03-15 10:08 | XMS_ITS | Encounter Summary ---
Author Organization [facility] Address [address] [place] [address] Care Team Providers Care Visitor Services Associate Name Role Phone Shun Encarnacion MD Primary Care Provider [phone] Jaja Yen STRATEGIC PARTNER DEVELOPMENT MANAGER Unavailable [phone] Encounter Details Date Type Department Care Team (Late st Contact Info) Description 12/10/2024 Orders Only [facility] [address] [place] [address] Shun Encarnacion MD [address] [place] [address] Social History Tobacco Use Types Packs/Day Years [...] often do you attend chur ch or alevism services? Never 05/23/2024 Do you belong to any clubs o r organizations such as congregational groups, unions, fraternal or athletic groups, or [...] medical care, and heating? Patient declined 05/23/2024 [facility] - Occupational Stress [...] any time in the past 12 m [facility], were you homeless or living in a jail (including now)? No 05/23/2024 Sex and Gender [...] [place] [facility] [address] [facility] [address] [place] [address] Edna Coronel, HOT PLATE PLYWOOD PRESS OFFBEARER 03/26/2025 4:00 PM EDT Treatment [facility] [place] [facility] [address] [facility] [address] [place] [address] Soto Lee, HOT PLATE PLYWOOD PRESS OFFBEARER 04/02/2025 4:00 PM EDT Treatment [facility] [place] [facility] [address] [facility] [address] [place] [address] Edna Coronel, HOT PLATE PLYWOOD PRESS OFFBEARER 04/04/2025 4:00 PM EDT Treatment [facility] [place] [facility] [address] [facility] [address] [place] [address] Edna Coronel, HOT PLATE PLYWOOD PRESS OFFBEARER 04/08/2025 11:30 AM EDT Office Visit [facility] [address] [place] [address] Shun Encarnacion MD [address] [place] [address] 04/08/2025 4:00 PM EDT Treatment [facility] [place] [facility] [address] [facility] [address] [place] [address] Chely Farley, PT 04/10/2025 9:00 AM EDT Office Visit [facility] [place] [address] Naveed Skaggs, BRENNA [address] [place] [address] documented as of this encounter Visit Diagnoses Not on filedocumented in this encounter Care Teams Visitor Services Associate Relationship Specialty Start Date End Date Shun Encarnacion MD [address] [facility] [place] [address] PCP - General Family Medicine 03/19/24 Jaja Yen, DELONTE [address] [place] [address] PCP - BARBI Oquendo WIRE WINDER 11/13/2407/14/ 5 documented as of this encounter
--- OUTSIDE RECORDS SUMMARY | 2025-03-15 10:08 | XMS_ITS | Encounter Summary ---
Author Organization [facility] Address [address] [place] [address] Care Team Providers Care Racker Octave Board Name Role Phone Shun Encarnacion MD Primary Care Provider [phone] Jaja Yen SOFA INSPECTOR Unavailable [phone] Encounter Details Date Type Department Care Team (Late st Contact Info) Description 02/27/2025 Orders Only [facility] [address] [place] [address] Unallocated, [facility] Provider, [address] [place], [place] [address] Social History Tobacco Use Types Packs/Day Years [...] often do you attend chur ch or muslim services? Never 05/23/2024 Do you belong to any clubs o r organizations such as faith groups, unions, fraternal or athletic groups, or [...] any time in the past 12 m [facility], were you homeless or living in [...] [facility] [address] [place] [address] Edna Coronel, CHANNEL ACCOUNT MANAGER 03/26/2025 4:00 PM EDT Treatment [facility] [place] [facility] [address] [facility] [address] [place] [address] Soto Lee, CHANNEL ACCOUNT MANAGER 04/02/2025 4:00 PM EDT Treatment [facility] [place] [facility] [address] [facility] [address] [place] [address] Edna Coronel, CHANNEL ACCOUNT MANAGER 04/04/2025 4:00 PM EDT Treatment [facility] [place] [facility] [address] [facility] [address] [place] [address] Edna Coronel, CHANNEL ACCOUNT MANAGER 04/08/2025 11:30 AM EDT Office Visit [facility] [address] [place] [address] Shun Encarnacion MD [address] [place] [address] 04/08/2025 4:00 PM EDT Treatment [facility] [place] [facility] [address] [facility] [address] [place] [address] Chely Farley, PT 04/10/2025 9:00 AM EDT Office Visit [facility] [place] [address] Naveed Skaggs PA [address] [facility] [place] [address] documented as of this encounter Procedures Procedure Name Priority Date/Time Associated Diagnosis Comments XR SHOULDER 2+ VIEWS LEFT Routine 02/27/2025 10:06 AM EDT documented in this encounter Results * XR shoulder 2+ views left (02/27/2025 10:06 AM EDT) Anatomical Region Laterality Modality Upper Extremities, Shoulder Left Radi ographic Imaging us [facility] Provider Unallocated MD HOLLOWAY XR PROCEDURES F inal Result documented in this encounter Visit Diagnoses Not on filedocumented in this encounter Care Teams Racker Octave Board Relationship Specialty Start Date End Date Shun Encarnacion MD [address] [place] [address] PCP - General Family Medicine 03/19/24 Jaja Yen NP [address] [place] [address] PCP - [facility] SECURITY BUSINESS ANALYST 11/13/2407/14/ 5 documented as of this encounter
--- OUTSIDE RECORDS SUMMARY | 2025-03-15 10:08 | XMS_ITS | Encounter Summary ---
Author Organization [facility] Address [address] [place] [address] Care Team Providers Care Storage Solutions Architect Name Role Phone Shun Encarnacion MD Primary Care Provider [phone] Jaja Yen SCHOLARSHIP COUNSELOR Unavailable [phone] Encounter Details Date Type Department Care Team (Latest Contact Info) Description 03/01/2025 Travel Social History Tobacco Use Types Packs/Day [...] any clubs o r organizations such as sikh groups, unions, fraternal or athletic groups, or [...] medical care, and heating? Patient declined [facility]24 [facility] - Occupational Stress Questionnaire Answer Date Recorded [...] in the past 12 m [facility], were you homeless or living in a [...] [facility] [place] [facility] [address] [facility] [address] [place] [address] Edna Coronel, SPINNING MACHINE OPERATOR 03/26/2025 4:00 PM EDT Treatment [facility] [place] [facility] [address] [facility] [address] [place] [address] Soto Lee, SPINNING MACHINE OPERATOR 04/02/2025 4:00 PM EDT Treatment [facility] [place] [facility] [address] [facility] [address] [place] [address] Homer Edna, SPINNING MACHINE OPERATOR 04/04/2025 4:00 PM EDT Treatment [facility] [place] [facility] [address] [facility] [address] [place] [address] Homer Edna, SPINNING MACHINE OPERATOR 04/08/2025 11:30 AM EDT Office Visit [facility] [address] [place] [address] Shun Encarnacion MD [address] [place] [address] 04/08/2025 4:00 PM EDT Treatment [facility] [place] [facility] [address] [facility] [address] [place] [address] Chely Farley, PT 04/10/2025 9:00 AM EDT Office Visit [facility] [address] [facility] [place] [address] Naveed Skaggs PA [address] [place] [address] documented as of this encounter Visit Diagnoses Not on filedocumented in this encounter Care Teams Storage Solutions Architect Relationship Specialty Start Date End Date Shun Encarnacion MD [address] [place] [place] [address] PCP - General Family Medicine 03/19/24 Jaja Yen NP [address] [place] [address] PCP - [facility] ORACLE DATABASE DEVELOPER 11/13/24 5 documented as of this encounter
--- OUTSIDE RECORDS SUMMARY | 2025-03-15 10:08 | XMS_ITS | Encounter Summary ---
Author Organization [facility] Address [address] [place] [address] Care Team Providers Care Chorus Dancer Name Role Phone Shun Encarnacion MD Primary Care Provider [phone] Jaja Yen ICE PULLER Unavailable [phone] Encounter Details Date Type Department Care Team (Late st Contact Info) Description 03/14/2025 Bamboo flowsheet [facility] [address] [place] [address] Edna Coronel, ADRIEL Social History Tobacco Use Types Packs/Day Years [...] often do you attend chur ch or catholic services? Never 05/23/2024 Do you belong to any clubs o r organizations such as yazidism groups, unions, fraternal or athletic groups, or [...] medical care, and heating? Patient declined 05/23/2024 [facility] of Occupat ional Health - Occupational Stress [...] any time in the past 12 m [facility], were you homeless or [...] [facility] [place] [facility] [address] [facility] [address] [place] [address] Edna Coronel, RIM FIRE PRIMING OPERATOR 03/26/2025 4:00 PM EDT Treatment [facility] [place] [facility] [address] [facility] [address] [place] [address] Soto Lee, RIM FIRE PRIMING OPERATOR 04/02/2025 4:00 PM EDT Treatment [facility] [place] [facility] [address] [facility] [address] [place] [address] Edna Coronel, RIM FIRE PRIMING OPERATOR 04/04/2025 4:00 PM EDT Treatment [facility] [place] [facility] [address] [facility] [address] [place] [address] Edna Coronel, RIM FIRE PRIMING OPERATOR 04/08/2025 11:30 AM EDT Office Visit [facility] [address] [place] [address] Shun Encarnacion MD [address] [place] [address] 04/08/2025 4:00 PM EDT Treatment [facility] [place] [facility] [address] [facility] [address] [place] [address] Chely Farley, PT 04/10/2025 9:00 AM EDT Office Visit [facility] [address] [place] [address] Naveed Skaggs, PA [address] [place] [address] documented as of this encounter Visit Diagnoses Not on filedocumented in this encounter Care Teams Chorus Dancer Relationship Specialty Start Date End Date hSun Encarnacion MD [address] [place] [address] PCP - General Family Medicine 03/19/24 Jaja Yen NP [address] [place] [address] PCP - [facility] HANDBAG STITCHER 11/13/24 5 documented as of this encounter
--- OUTSIDE RECORDS SUMMARY | 2025-03-15 10:08 | XMS_ITS | Encounter Summary ---
Author Organization [facility] Address [address] [place] [address] Care Team Providers Care Foundry Manager Name Role Phone Shun Encarnacion MD Primary Care Provider [phone] Jaja Yen DONOR CENTER TECHNICIAN Unavailable [phone] Encounter Details Date Type Department Care Team (Late st Contact Info) Description 12/10/2024 Orders Only [facility] [address] [place] [address] Sally Arias, OD [address] [place] [address] Social History Tobacco Use Types Packs/Day Years [...] any clubs o r organizations such as religious groups, unions, fraternal or athletic groups, or [...] medical care, and heating? Patient declined 05/23/2024 [facility] Occupat ional Health - Occupational [...] any time in the past 12 m [facility], were you homeless or living in a prison (including now)? No 05/23/2024 Sex and Gender [...] Treatment [facility] [place] [facility] [address] [facility] [address] [place] [address] Edna Coronel, BOTTLING ROOM WORKER 03/26/2025 4:00 PM EDT Treatment [facility] [place] [facility] [address] [facility] [address] [place] [address] Soto Lee, BOTTLING ROOM WORKER 04/02/2025 4:00 PM EDT Treatment [facility] [place] [facility] [address] [facility] [address] [place] [address] Edna Coronel, BOTTLING ROOM WORKER 04/04/2025 4:00 PM EDT Treatment [facility] [place] [facility] [address] [facility] [address] [place] [address] Edna Coronel, BOTTLING ROOM WORKER 04/08/2025 11:30 AM EDT Office Visit [facility] [address] [place] [address] Shun Encarnacion MD [address] [place] [address] 04/08/2025 4:00 PM EDT Treatment [facility] [place] [facility] [address] [facility] [address] [place] [address] Chely Farley, PT 04/10/2025 9:00 AM EDT Office Visit [facility] [address] [place] [address] Naveed Skaggs, PA [address] [place] [address] documented as of this encounter Procedures Procedure [...] on filedocumented in this encounter Care Teams Foundry Manager Relationship Specialty Start Date End Date Shun Encarnacion MD [address] [place] [address] PCP - General Family Medicine 03/19/24 Jaja Yen NP [address] [place] [address] PCP - [facility] BRANCH ACCOUNT MANAGER 11/13/2407/14/ 5 documented as of this encounter
--- OUTSIDE RECORDS SUMMARY | 2025-03-15 10:08 | XMS_ITS | Encounter Summary ---
Author Organization [facility] Address [address] [place] [address] Care Team Providers Care Chicken Hanger Name Role Phone Shun Encarnacion MD Primary Care Provider [phone] Jaja Yen PSYCHOLOGIST PRIVATE PRACTICE Unavailable [phone] Encounter Details Date Type Department Care Team (Latest Contact Info) Description 03/06/2025 Travel Social History Tobacco Use Types Packs/Day [...] often do you attend chur ch or restorationism services? Never 05/23/2024 Do you belong to [...] medical care, and heating? Patient declined 05/23/2024 [facility] - Occupational Stress Questionnaire Answer Date Recorded [...] time in the past 12 m [facility], were you homeless or living in a intermediate (including now)? No 05/23/2024 Sex and Gender [...] Physical Therapy [address] [facility] [address] [place] [address] Edna Coronel, COLLEGE ADVISOR 03/26/2025 4:00 PM EDT Treatment [facility] [place] [facility] [address] [facility] [address] [place] [address] Soto Lee, COLLEGE ADVISOR 04/02/2025 4:00 PM EDT Treatment [facility] [place] [facility] [address] [facility] [address] [place] [address] Homer Edna, COLLEGE ADVISOR 04/04/2025 4:00 PM EDT Treatment [facility] [place] [facility] [address] [facility] [address] [place] [address] Homer Edna, COLLEGE ADVISOR 04/08/2025 11:30 AM EDT Office Visit [facility] [address] [place] [address] Shun Encarnacion MD [address] [place] [address] 04/08/2025 4:00 PM EDT Treatment [facility] [place] [facility] [address] [facility] [address] [place] [address] Chely Farley, PT 04/10/2025 9:00 AM EDT Office Visit [facility] [address] [place] [address] Naveed Skaggs PA [address] [place] [address] documented as of this encounter Visit Diagnoses Not on filedocumented in this encounter Care Teams Chicken Hanger Relationship Specialty Start Date End Date Shun Encarnacion MD [address] [place] [address] PCP - General Family Medicine 03/19/24 Jaja Yen NP [address] [place] [address] PCP - [facility] NUCLEAR EQUIPMENT TEST ENGINEER 11/13/24 5 documented as of this encounter
--- OUTSIDE RECORDS SUMMARY | 2025-03-15 10:08 | XMS_ITS | Encounter Summary ---
Author Organization [facility] Address [address] [place] [address] Care Team Providers Care Bank Vault Attendant Name Role Phone Shun Encarnacion MD Primary Care Provider [phone] Jaja Yen BAKED GOODS STOCK CLERK Unavailable [phone] Encounter Details Date Type Department Care Team (Latest Contact Info) Description 03/12/2025 Travel Social History Tobacco Use Types Packs/Day [...] any clubs o r organizations such as restorationism groups, unions, fraternal or athletic groups, or [...] medical care, and heating? Patient declined [facility]24 [facility] - Occupational Stress Questionnaire Answer [...] any time in the past 12 m [facility], were you homeless or living in [...] [facility] [address] [facility] [address] [place] [address] Edna Coronel, UNIFIED COMMUNICATIONS ARCHITECT 03/26/2025 4:00 PM EDT Treatment [facility] [address] [facility] [address] [place] [address] Soto Lee, UNIFIED COMMUNICATIONS ARCHITECT 04/02/2025 4:00 PM EDT Treatment [facility] [address] [facility] [address] [place] [address] Homer Edna, UNIFIED COMMUNICATIONS ARCHITECT 04/04/2025 4:00 PM EDT Treatment [facility] [address] [facility] [address] [place] [address] Homer Edna, UNIFIED COMMUNICATIONS ARCHITECT 04/08/2025 11:30 AM EDT Office Visit [facility] [address] [place] [address] Shun Encarnacion MD [address] [place] [address] 04/08/2025 4:00 PM EDT Treatment [facility] [place] [facility] [address] [facility] [address] [place] [address] Chely Farley, PT 04/10/2025 9:00 AM EDT Office Visit [facility] [address] [facility] [address] Naveed Skaggs PA [address] [place] [address] documented as of this encounter Visit Diagnoses Not on filedocumented in this encounter Care Teams Bank Vault Attendant Relationship Specialty Start Date End Date Shun Encarnacion MD [address] [place] [address] PCP - General Family Medicine 03/19/24 Jaja Yen NP [address] [place] [address] PCP - [facility] PAINTER HELPER SPRAY 11/13/24 5 documented as of this encounter
--- OUTSIDE RECORDS SUMMARY | 2025-03-15 10:08 | XMS_ITS | Encounter Summary ---
Author Organization [facility] Address [address] [place] [address] Care Team Providers Care Laborer Car Barn Name Role Phone Shun Encarnacion MD Primary Care Provider [phone] Jaja Yen ELECTRIC MOTOR MECHANIC Unavailable [phone] Encounter Details Date Type Department Care Team (Late st Contact Info) Description 03/12/2025 Bamboo flowsheet [facility] [address] [place] [address] Soto Lee, ADRIEL Social History Tobacco Use Types Packs/Day [...] often do you attend chur ch or yazdanism services? Never 05/23/2024 Do you belong to [...] medical care, and heating? Patient declined 05/23/2024 [facility]at ional Health - [...] time in the past 12 m [facility], were you homeless or living in [...] [facility] [place] [facility] [address] [facility] [address] [place] [address] Edna Coronel, REGISTERED NURSE CARDIAC 03/26/2025 4:00 PM EDT Treatment [facility] [address] [facility] [address] [place] [address] Soto Lee, REGISTERED NURSE CARDIAC 04/02/2025 4:00 PM EDT Treatment [facility] [place] [facility] [address] [facility] [address] [place] [address] Edna Coronel, REGISTERED NURSE CARDIAC 04/04/2025 4:00 PM EDT Treatment [facility] [address] [facility] [address] [place] [address] Edna Coronel, REGISTERED NURSE CARDIAC 04/08/2025 11:30 AM EDT Office Visit [facility] [address] [place] [address] Shun Encarnacion MD [address] [place] [address] 04/08/2025 4:00 PM EDT Treatment [facility] [address] [facility] [address] [place] [address] Chely Farley, PT 04/10/2025 9:00 AM EDT Office Visit [facility] [address] [facility] [address] Naveed Skaggs, PA [address] [place] [place] [address] documented as of this encounter Visit Diagnoses Not on filedocumented in this encounter Care Teams Laborer Car Barn Relationship Specialty Start Date End Date Shun Encarnacion MD [address] [place] [address] PCP - General Family Medicine 03/19/24 Jaja Yen NP [address] [place] [address] PCP - [facility] INVESTMENT BANKING ASSOCIATE 11/13/24 5 documented as of this encounter
--- OUTSIDE RECORDS SUMMARY | 2025-03-15 10:08 | XMS_ITS | Encounter Summary ---
Author Organization [facility] Address [address] [place] [address] Care Team Providers Care Staffing Consultant Name Role Phone Shun Encarnacion MD Primary Care Provider [phone] Jaja Yen SMOKE JUMPER SUPERVISOR Unavailable [phone] Encounter Details Date Type Department Care Team (Latest Contact Info) Description 03/07/2025 Travel Social History Tobacco Use Types Packs/Day [...] often do you attend chur ch or restoration services? Never 05/23/2024 Do you belong to any clubs o r organizations such as taoist groups, unions, fraternal or athletic groups, or [...] medical care, and heating? Patient declined [facility]24 [facility] - Occupational Stress Questionnaire Answer Date Recorded [...] time in the past [address] [facility], were you homeless or living in a residential (including now)? No 05/23/2024 Sex and Gender [...] [facility] [place] [facility] [address] [facility] [address] [place] [address] Edna Coronel, TOOL BUILDER 03/26/2025 4:00 PM EDT Treatment [facility] [address] [facility] [address] [place] [address] Soto Lee, TOOL BUILDER 04/02/2025 4:00 PM EDT Treatment [facility] [address] [facility] [address] [place] [address] Homer Edna, TOOL BUILDER 04/04/2025 4:00 PM EDT Treatment [facility] [address] [facility] [address] [place] [address] Homer Edna, TOOL BUILDER 04/08/2025 11:30 AM EDT Office Visit [facility] [address] [place] [address] Shun Encarnacion MD [address] [place] [address] 04/08/2025 4:00 PM EDT Treatment [facility] [place] [facility] [address] [facility] [address] [place] [address] Chely Farley, PT 04/10/2025 9:00 AM EDT Office Visit [facility] [address] [place] [phone] Naveed Skaggs PA [address] [place] [address] documented as of this encounter Visit Diagnoses Not on filedocumented in this encounter Care Teams Staffing Consultant Relationship Specialty Start Date End Date Shun Encarnacion MD [address] [place] [place] [address] PCP - General Family Medicine 03/19/24 Jaja Yen NP [address] [place] [address] PCP - [facility] ENGINEERING CONSULTANT 11/13/24 5 documented as of this encounter
--- OUTSIDE RECORDS SUMMARY | 2025-03-15 10:08 | XMS_ITS | Encounter Summary ---
Author Organization [facility] Address [address] [place] [address] Care Team Providers Care Washer Off Name Role Phone Shun Encarnacion MD Primary Care Provider [phone] Jaja Yen RADIATION THERAPY TECHNOLOGIST Unavailable [phone] Encounter Details Date Type Department Care Team (Late st Contact Info) Description 03/01/2025 Bamboo flowsheet [facility] [address] [place] [address] Chely Farley, PT Social History Tobacco Use Types Packs/Day Years [...] often do you attend chur ch or confucianism services? Never 05/23/2024 Do you belong to any clubs o r organizations such as roman catholic groups, unions, fraternal or athletic groups, or [...] medical care, and heating? Patient declined 05/23/2024 [facility] of Occupat ional Health - Occupational Stress [...] any time in the past 12 m [facility], were you homeless or living in a long-term (including now)? No 05/23/2024 Sex and Gender [...] [facility] [place] [facility] [address] [facility] [address] [place] [address] Edna Coronel, BIAS CUTTER 03/26/2025 4:00 PM EDT Treatment [facility] [place] [facility] [address] [facility] [address] [place] [address] Soto Lee, BIAS CUTTER 04/02/2025 4:00 PM EDT Treatment [facility] [address] [facility] [address] [place] [address] Edna Coronel, BIAS CUTTER 04/04/2025 4:00 PM EDT Treatment [facility] [place] [facility] [address] [facility] [address] [place] [address] Edna Coronel, BIAS CUTTER 04/08/2025 11:30 AM EDT Office Visit [facility] [address] [place] [address] Shun Encarnacion MD [address] [place] [address] 04/08/2025 4:00 PM EDT Treatment [facility] [place] [facility] [address] [facility] [address] [place] [address] Chely Farley, PT 04/10/2025 9:00 AM EDT Office Visit [facility] [address] [place] [phone] Naveed Skaggs, PA [address] [place] [address] documented as of this encounter Visit Diagnoses Not on filedocumented in this encounter Care Teams Washer Off Relationship Specialty Start Date End Date Shun Encarnacion MD [address] [place] [address] PCP - General Family Medicine 03/19/24 Jaja Yen NP [address] [place] [address] PCP - [facility] CABLE SUPERVISOR 11/13/24 5 documented as of this encounter
--- OUTSIDE RECORDS SUMMARY | 2025-03-15 10:09 | XMS_ITS | Encounter Summary ---
Author Organization [facility] Address [address] [place] [address] Care Team Providers Care Harbormaster Name Role Phone Shun Encarnacion MD Primary Care Provider [phone] Jaja Yen DAY CARE HOME PROVIDER Unavailable [phone] Encounter Details Date Type Department Care Team (Late st Contact Info) Description 03/05/2025 Bamboo flowsheet [facility] [address] [place] [address] Soto Lee, ADRIEL Social History Tobacco Use [...] often do you attend chur ch or latter-day services? Never 05/23/2024 Do you belong to any clubs o r organizations such as religion groups, unions, fraternal or athletic groups, or [...] medical care, and heating? Patient declined 05/23/2024 [facility] Occupat ional Health - [...] any time in the past 12 m [facility], were you homeless or living in a mcfp (including now)? No 05/23/2024 Sex and Gender [...] [facility] [address] [facility] [address] [place] [address] Edna Coronel, ACTIVITIES VOLUNTEER 03/26/2025 4:00 PM EDT Treatment [facility] [place] [facility] [address] [facility] [address] [place] [address] Soto Lee, ACTIVITIES VOLUNTEER 04/02/2025 4:00 PM EDT Treatment [facility] [place] [facility] [address] [facility] [address] [place] [address] Edna Coronel, ACTIVITIES VOLUNTEER 04/04/2025 4:00 PM EDT Treatment [facility] [address] [facility] [address] [place] [address] Edna Coronel, ACTIVITIES VOLUNTEER 04/08/2025 11:30 AM EDT Office Visit [facility] [address] [place] [address] Shun Encarnacion MD [address] [place] [address] 04/08/2025 4:00 PM EDT Treatment [facility] [place] [facility] [address] [facility] [address] [place] [address] Chely Farley, PT 04/10/2025 9:00 AM EDT Office Visit [facility] [address] [place] [address] Naveed Skaggs, PA [address] [place] [address] documented as of this encounter Visit Diagnoses Not on filedocumented in this encounter Care Teams Harbormaster Relationship Specialty Start Date End Date Shun Encarnacion MD [address] [place] [address] PCP - General Family Medicine 03/19/24 Jaja Yen NP [address] [place] [address] PCP - [facility] CONSUMER AFFAIRS MANAGER 11/13/24 5 documented as of this encounter
--- OUTSIDE RECORDS SUMMARY | 2025-03-15 10:09 | XMS_ITS | Encounter Summary ---
Author Organization [facility] Address [address] [place] [address] Care Team Providers Care Sustainability Executive Director Name Role Phone Shun Encarnacion MD Primary Care Provider [phone] Jaja Yen SEMICONDUCTOR WAFER INSPECTOR Unavailable [phone] Reason for Visit * Reason Onset Date Comments Med Refill 03/11/2025 Encounter Details Date Type Department Care Team (Late st Contact Info) Description 03/11/2025 Refill [facility] [address] [place] [address] Shun Encarnacion MD [address] [place] [address] Degeneration of intervertebral disc of lumbar region [...] Never 05/23/2024 How often do you attend [facility] or nondenominational services? Never 05/23/2024 Do you [...] medical care, and heating? Patient declined 05/23/2024 [facility] Occupat ional Health - Occupational [...] any time in the past 12 m [facility], were you homeless or living in a [...] [place] [facility] [address] [facility] [address] [place] [address] Edna Coronel, COIN MACHINE COLLECTOR SUPERVISOR 03/26/2025 4:00 PM EDT Treatment [facility] [place] [facility] [address] [facility] [address] [place] [address] Soto Lee, COIN MACHINE COLLECTOR SUPERVISOR 04/02/2025 4:00 PM EDT Treatment [facility] [place] [facility] [address] [facility] [address] [place] [address] Edna Coronel, COIN MACHINE COLLECTOR SUPERVISOR 04/04/2025 4:00 PM EDT Treatment [facility] [address] [facility] [address] [place] [address] Edna Coronel, COIN MACHINE COLLECTOR SUPERVISOR 04/08/2025 11:30 AM EDT Office Visit [facility] [address] [place] [address] Shun Encarnacion MD [address] [place] [address] 04/08/2025 4:00 PM EDT Treatment [facility] [place] [facility] [address] [facility] [address] [place] [address] Chely Farley, PT 04/10/2025 9:00 AM EDT Office Visit [facility] [address] [place] [address] Naveed Skaggs PA [address] [place] [address] documented as of this encounter Visit Diagnoses Diagnosis 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 pain documented in this encounter Care Teams Sustainability Executive Director Relationship Specialty Start Date End Date Shun Encarnacion MD [address] [place] [address] PCP - General Family Medicine 03/19/24 Jaja Yen NP [address] [place] [address] PCP - [facility] THURMAN 11/13/24 5 documented as of this encounter
--- OUTSIDE RECORDS SUMMARY | 2025-03-15 10:09 | XMS_ITS | Encounter Summary ---
Author Organization [facility] Address [address] [place] [address] Care Team Providers Care Financial Aid Name Role Phone Shun Encarnacion MD Primary Care Provider [phone] Jaja Yen FINISHING INSPECTOR Unavailable [phone] Reason for Visit * Reason Comments Med Refill Encounter Details Date Type Department Care Team (Late st Contact Info) Description 03/02/2025 [facility] [address] [place] [address] Shun Encarnacion MD [address] [place] [address] MDD (major depressive disorder), recurrent episode, moderate (HCC) Social History Tobacco Use Types Packs/Day Years [...] Never 05/23/2024 How often do you attend [facility] or sikhism services? Never 05/23/2024 Do you belong to any clubs o r organizations such as yazidi groups, unions, fraternal or athletic groups, or [...] medical care, and heating? Patient declined 05/23/2024 [facility] - Occupational Stress Questionnaire Answer Date Recorded [...] were you homeless or living in a alf (including now)? No 05/23/2024 Sex and Gender Information Value Date Recorded Sex Assigned at Not on file Legal Sex Male 10:24 AM EST Gender Identity Male 04/02/2024 4:11 PM EDT Sexual Orientation Not on file documented as of this encounter Miscellaneous Notes * Telephone Encounter - JOHAN SKAGGS - 03/04/2025 1:10 PM EDT MEDICATION SENT TO [facility] documented in this encounter Plan of Treatment Upcoming Encounters Date Type Department Care Team (Late st Contact Info) Description 03/19/2025 4:00 PM EDT Treatment [facility] [place] [facility] [address] [facility] [address] [place] [address] Edna Coronel, DIGITAL FORENSICS INVESTIGATOR 03/26/2025 4:00 PM EDT Treatment [facility] [place] [facility] [address] [facility] [address] [place] [address] Soto Lee, DIGITAL FORENSICS INVESTIGATOR 04/02/2025 4:00 PM EDT Treatment [facility] [place] [facility] [address] [facility] [address] [place] [address] Edna Coronel, DIGITAL FORENSICS INVESTIGATOR 04/04/2025 4:00 PM EDT Treatment [facility] [place] [facility] [address] [facility] [address] [place] [address] Edna Coronel, DIGITAL FORENSICS INVESTIGATOR 04/08/2025 11:30 AM EDT Office Visit [facility] [address] [place] [address] Shun Encarnacion MD [address] [place] [address] 04/08/2025 4:00 PM EDT Treatment [facility] [address] [address] [place] [address] Chely Farley, DUANE 04/10/2025 9:00 AM EDT Office Visit [facility] [address] [place] [address] Naveed Skaggs, PA [address] [place] [address] documented as of this encounter Visit Diagnoses Diagnosis MDD (major depressive disorder), recurrent episode, moderate (HCC) documented in this encounter Care Teams Financial Aid Relationship Specialty Start Date End Date Shun Encarnacion MD [address] [place] [address] PCP - General Family Medicine 03/19/24 Jaja Yen NP [address] [place] [address] PCP - [facility] THURMAN 11/13/24 5 documented as of this encounter
--- OUTSIDE RECORDS SUMMARY | 2025-03-15 10:09 | XMS_ITS | Encounter Summary ---
Author Organization [facility] Address [address] [place] [address] Care Team Providers Care Security Systems Specialist Name Role Phone Shun Encarnacion MD Primary Care Provider [phone] Jaja Yen PARK MAINTENANCE TECHNICIAN Unavailable [phone] Encounter Details Date Type Department Care Team (Latest Contact Info) Description 03/05/2025 Travel Social History Tobacco Use Types Packs/Day [...] often do you attend chur ch or methodist services? Never 05/23/2024 Do you belong to any clubs o r organizations such as denominational groups, unions, fraternal or athletic groups, or [...] medical care, and heating? Patient declined 05/23/2024 [facility] - Occupational Stress Questionnaire Answer [...] any time in the past 12 m [facility], were you homeless or living in [...] [facility] [place] [facility] [address] [facility] [address] [place] [address] Edna Coronel, CHIEF COUNSEL 03/26/2025 4:00 PM EDT Treatment [facility] [place] [facility] [address] [facility] [address] [place] [address] Soto Lee, CHIEF COUNSEL 04/02/2025 4:00 PM EDT Treatment [facility] [place] [facility] [address] [facility] [address] [place] [address] Homer Edna, CHIEF COUNSEL 04/04/2025 4:00 PM EDT Treatment [facility] [place] [facility] [address] [facility] [address] [place] [address] Homer Edna, CHIEF COUNSEL 04/08/2025 11:30 AM EDT Office Visit [facility] [address] [place] [address] Shun Encarnacion MD [address] [place] [address] 04/08/2025 4:00 PM EDT Treatment [facility] [place] [facility] [address] [facility] [address] [place] [address] Chely Farley, PT 04/10/2025 9:00 AM EDT Office Visit [facility] [address] [facility] [place] [address] Naveed Skaggs PA [address] [place] [address] documented as of this encounter Visit Diagnoses Not on filedocumented in this encounter Care Teams Security Systems Specialist Relationship Specialty Start Date End Date Shun Encarnacion MD [address] [place] [address] PCP - General Family Medicine 03/19/24 Jaja Yen NP [address] [place] [address] PCP - [facility] MANAGER FOOD SAFETY 11/13/24 5 documented as of this encounter
--- OUTSIDE RECORDS SUMMARY | 2025-03-15 10:09 | XMS_ITS | Encounter Summary ---
Author Organization [facility] Address [address] [place] [address] Care Team Providers Care Retail Planning Manager Name Role Phone Shun Encarnacion MD Primary Care Provider [phone] Jaja Yen URBAN GARDENING SPECIALIST Unavailable [phone] Encounter Details Date Type Department Care Team (Late st Contact Info) Description 03/07/2025 Bamboo flowsheet [facility] [address] [place] [address] Soto Lee, ADRIEL Social History Tobacco Use [...] often do you attend chur ch or scientology services? Never 05/23/2024 Do you belong to any clubs o r organizations such as scientologist groups, unions, fraternal or athletic groups, or [...] medical care, and heating? Patient declined 05/23/2024 [facility] of Occupat ional Health - [...] [facility] [place] [facility] [address] [facility] [address] [place] [address] Edna Coronel, TELEGRAPH EQUIPMENT MAINTAINER 03/26/2025 4:00 PM EDT Treatment [facility] [address] [facility] [address] [place] [address] Soto Lee, TELEGRAPH EQUIPMENT MAINTAINER 04/02/2025 4:00 PM EDT Treatment [facility] [place] [facility] [address] [facility] [address] [place] [address] Edna Coronel, TELEGRAPH EQUIPMENT MAINTAINER 04/04/2025 4:00 PM EDT Treatment [facility] [address] [facility] [address] [place] [address] Edna Coronel, TELEGRAPH EQUIPMENT MAINTAINER 04/08/2025 11:30 AM EDT Office Visit [facility] [address] [place] [address] Shun Encarnacion MD [address] [place] [address] 04/08/2025 4:00 PM EDT Treatment [facility] [address] [facility] [address] [place] [address] Chely Farley, PT 04/10/2025 9:00 AM EDT Office Visit [facility] [address] [facility] [place] [address] Naveed Skaggs, PA [address] [place] [address] documented as of this encounter Visit Diagnoses Not on filedocumented in this encounter Care Teams Retail Planning Manager Relationship Specialty Start Date End Date Shun Encarnacion MD [address] [place] [address] PCP - General Family Medicine 03/19/24 Jaja Yen NP [address] [place] [address] PCP - [facility] GAS PUMP ATTENDANT 11/13/24 5 documented as of this encounter
--- OUTSIDE RECORDS SUMMARY | 2025-03-15 10:13 | XMS_ITS | CCD ---
Author Organization [facility] Care Team Providers Care Supply Room Clerk Name Role Phone POLA, DR SHUN Power Primary Care Unavailable ADDY, DR HANNAH Weaver Admitting Unavailable ADDY, DR HANNAH Weaver Attending Unavailable ADDY, DR HANNAH Weaver Consulting Unavailable NADERER, DR SHUN Power Admitting Unavailable NADERER, DR SHUN Power Attending Unavailable POLA, DR SHUN Power Primary Care Unavailable POLA, DR SHUN Power Consulting Unavailable POLA, DR SHUN Power Primary Care Unavailable ADDY, DR HANNAH Weaver Admitting Unavailable ADDY, DR HANNHA Weaver Attending Unavailable ADDY, DR HANNAH Weaver Consulting Unavailable DANIELA, PATI Consulting Unavailable NADERER, DR SHUN Power Primary Care Unavailable JARON, SAÚL Admitting Unavailable JARON, SAÚL Attending Unavailable JARON, SAÚL Consulting Unavailable Shun Escalona MD Primary Care Provider [employer] QUALITY MANAGER, Jaja Escobar Unavailable [phone] SHUN ESCALONA Attending Unavailable POLA, SHUN Attending Unavailable POLA, SHUN Attending Unavailable RICKY FARLEY Attending Unavailable POLA, SHUN Referring Unavailable VICKI PICKARD Attending Unavailable NADERER, SHUN Referring Unavailable JOCELYNN SKAGGS Attending Unavailable NADERER, SHUN Referring Unavailable NADERER, SHUN Attending Unavailable NADERER, SHUN Attending Unavailable DOUGERER, SHUN Attending Unavailable MELLY, VICKI Attending Unavailable POLA, SHUN Referring Unavailable VICKI PICKARD Attending Unavailable POLA, SHUN Referring Unavailable Medications Current Medications Medication Drug Class(es) Dates Sig (Normalized) Sig (Original) acetaminophen 325 mg / HYDROcodone bitartrate 5 mg oral tablet (2 sources) Opioid Agonist Start: 05-24-2024 End: 05-31-2024 take 1 tablet by mouth four times daily as needed for pain HYDROcodone-acetamin ophen (Rayne) 5-325 MG tablet Indications: 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 pain Take 1 tablet by mouth 4 (four) times a day as needed for severe pain for up to 7 days 28 tablet 05/24/2024 05/31/2024 Active acetaminophen 325 mg / oxyCODONE hydrochloride 5 mg oral tablet (20 sources) Opioid Agonist Start: 02-25-2025 End: 03-26-2025 take 1 tablet by mouth four times daily as needed for pain oxyCODONE-acetaminop hen (Percocet) 5-325 MG tablet Indications: 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 pain Take 1 tablet by mouth 4 (four) times a day as needed for moderate pain or severe pain for up to 15 days 60 tablet 03/11/2025 03/26/2025 Active Start: 01-30-2025 End: 02-14-2025 take 1 tablet [...] without long-term current use of insulin (HCC) 1 each Daily 1 kit 03/19/2024 Active Start: 03-19-2024 Blood Glucose Monitoring Suppl (Blood Glucose Monitor System) w/Device kit Indications: Type 2 diabetes mellitus with hyperglycemia, without long-term current use of insulin (CMS/HCC) 1 each Daily 1 kit 03/19/2024 Active [...] Daily 30 tablet 11 06/06/2024 06/06/2025 Active methylPREDNISolone (9 sources) Corticosteroid Start: 03-06-2025 methylPREDNISolone (Medrol Dospak) 4 MG tablets Indications: Internal derangement of left shoulder Follow schedule on package instructions 21 tablet 03/06/2025 Active nabumetone 500 mg oral tablet (3 sources) Nonsteroidal Anti-inflammatory Drug Start: 08-03-2023 End: 05-24-2024 take 1 tablet by mouth in the morning nabumetone (Relafen) 500 MG tablet Take 500 mg by mouth in the morning and 500 mg before bedtime. 08/03/2023 05/24/2024 Discontinued PARoxetine hydrochloride 20 mg oral tablet (20 sources) Serotonin Reuptake Inhibitor Start: 03-04-2025 take 1 tablet by mouth in the morning PARoxetine (Paxil) 20 MG tablet Indications: MDD (major depressive disorder), recurrent episode, moderate (HCC) TAKE 1 TABLET BY MOUTH IN THE MORNING 30 tablet 5 03/04/2025 Active Start: 07-18-2024 take 1 tablet by ronnie th in the morning PARoxetine (Paxil) 20 MG [...] D deficiency, unspecified] Onset: 03-19-2024 03-19-2024 Chronic Other injuries and conditions due to external causes (20 sources) Injury of left rotator cuff; Translations: [Unspecified injury of muscle(s) and tendon(s) of the rotator cuff of left shoulder, subsequent encounter] Onset: 02-27-2025 02-27-2025 Episodic Other non-traumatic joint disorders (20 sources) Derangement of left shoulder joint; Translations: [Other specific joint derangements of left shoulder, not elsewhere classified] Onset: 02-27-2025 02-27-2025 Chronic Other non-traumatic joint disorders (2 sources) Pain in left shoulder; Translations: [Pain in joint, shoulder region] 03-05-2025 Episodic Spondylosis; intervertebral disc disorders; other back problems [...] 12-28-2021 Episodic Other aftercare (1 source) Other retirement (current) drug therapy; 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] Onset: 12-30-2021 Episodic Other aftercare (1 source) long-term (current) use of oral hypoglycemic drugs; Translations: [TOP DYEING MACHINE TENDER USE ORAL HYPOGLYCEMIC DX] Onset: 12-30-2021 Episodic Unclassified (1 source) CONTACT W/AND (SUSP) EXPOS COVID-19; Translations: [CONTACT W/AND (SUSP) EXPOS COVID-19] Onset: 06-01-2022 Unclassified (6 sources) Injury of left rotator cuff 02-27-2025 Results Test Name Value Interpretation Reference Range Facility ALL CBC WITH AUTO DIFFon BASOPHILS ABSOLUTE AUTO 0.1 [facility] Basophils/100 WBC (Bld) 0.9 % 0.2 - 2.0 % [facility] Eosinophils/100 WBC (Bld) 4 % 0.9 - 7.0 % [facility] Erythrocyte distribution width (RBC) [Ratio] 12.1 % 11.0 - 15.0 % [facility] Hematocrit (Bld) [Volume fraction] 48.5 % 42.0 - 54.0 % [facility] Hemoglobin (Bld) [Mass/Vol] 17.2 g/dL 14.0 - 18.0 g/dL [facility] IMMATURE GRANULOCYTES ABS AUTO 0.02 [facility] Immature granulocytes/100 WBC (Bld) 0.3 % 0.0 - 0.5 % [facility] Interpretation and review of laboratory results Abnormal [facility] LYMPHOCYTES ABSOLUTE AUTO 3.2 [facility] Lymphocytes/100 WBC (Bld) 42.7 % 20.5 - 60.0 % [facility] MCH (RBC) [Entitic mass] 30.1 pg 25.9 - 34.0 pg [facility] MCHC (RBC) [Mass/Vol] 35.5 g/dL High 29.9 - 35.2 g/dL [facility] MCV (RBC) [Entitic vol] 84.8 fL 80.0 - 94.0 fL [facility] MONOCYTES ABSOLUTE AUTO 0.4 [facility] Monocytes/100 WBC (Bld) 5.9 % 1.7 - 12.0 % [facility] NEUTROPHILS ABSOLUTE AUTO 3.4 [facility] Neutrophils/100 WBC (Bld) 46.2 % 43.0 - 75.0 % [facility] Platelet mean volume (Bld) [Entitic vol] 10 fL 9.5 - 13.[facility] PLT [address] [facility] RBC 5.72 [facility] WBC 7.4 [facility] Covid-19 PCR ([facility])on 05-15 SARS-CoV-2 (COVID-19) RNA YVONNE+probe Ql (Unsp spec) Detected Critically abnormal NOT DETECTED [facility] Comment on above: Result Comment: This test is not yet approved or cleared by the [place] FDA. When there are no FDA-approved or cleared tests available, and other criteria are met, FDA can make tests available under an emergency access mechanism called an Emergency Use Authorization (EUA). The EUA for this test is supported by the [place] of Health and Human Service's declaration that [...] longer be used). Performed By: #### [facility] #### [facility] [address] [place] [address] Dr. Abigail Flores GLYCOHEMOGLOBIN A1Con 2021 ADA RECOMMENDATION SEE BELOW Normal [facility] Comment on above: Result Comment: ADA RECOMMENDED LIMIT 4.0 - 6.0 ADA THERAPEUTIC TARGET < 7.0 ACTION SUGGESTED > 7.0 Performed By: #### A 1C #### [facility] [address] [place] [address] Dr. Abigail Flores Glucose [Mass/Vol] 246 mg/dL Normal [facility] Comment on above: Performed By: #### A 1C #### [facility] [address] [place] [address] Dr. Abigail Flores HbA1c (Bld) [Mass fraction] 10.2 % Critically high 4.5-6.2 [facility] Comment on above: Performed By: #### A 1C #### [facility] [address] [place] [address] Dr. Abigail Flores CARDIAC HANNAH ADMITon 022 CK [Catalytic activity/Vol] 92 U/L Normal 55-170 [facility] Comment on above: Performed By: #### C MADM, CMP #### [facility] [address] [place] [address] Dr. Abigail Flores CK.MB [Mass/Vol] 1.09 ng/mL Normal <=2.37 [facility] Comment on above: Performed By: #### C MADM, CMP #### [facility] [address] [place] [address] Dr. Abigail Flores HSTROP 6.1 pg/mL Normal 4.0-42.2 [facility] Comment on above: Result Comment: CUT- OFF POINTS HAVE BEEN ESTABLISHED BASED ON THE FOURTH UNIVERSAL DEFINITIONS OF MYOCARDIAL INFARCTION. THE UPPER REFERENCE LIMIT (URL) OF TROPONIN, DEFINED THE 99TH PERCENTILE OF cTnI DISTRIBUTION IN A REFERENCE POPULATION, HAS BEEN CONFIRMED THE DECISION THRESHOLD FOR UT DIAGNOSIS. Performed By: #### C EDWARDOM, CMP #### [facility] [address] [place] [address] Dr. Abigail Flores KELLY 61.0 ng/mL Normal <=121.0 [facility] Comment on above: Performed By: #### C EDWARDOM, CMP #### [facility] [address] [place] [address] Dr. Abigail Flores CBC AUTO DIFFon 08-16-2021 BASO # 0.1 103/ul Normal 0.0-0.1 [facility] Comment on above: Performed By: #### C BC #### [facility] [address] [place] [address] Dr. Abigail Flores Basophils/100 WBC (Bld) 1.0 % Normal 0.2-2.0 [facility] Comment on above: Performed By: #### C BC #### [facility] [address] [place] [address] Dr. Abigail Flores EO # 0.3 103/ul Normal 0.0-0.7 [facility] Comment on above: Performed By: #### C BC #### [facility] [address] [place] [address] Dr. Abigail Flores Eosinophils/100 WBC (Bld) 3.3 % Normal 0.9-7.0 [facility] Comment on above: Performed By: #### C BC #### [facility] [address] [place] [address] Dr. Abigail Flores Erythrocyte distribution width (RBC) [Ratio] 12.4 % Normal 11.0-15.0 [facility] Comment on above: Performed By: #### C BC #### [facility] [address] [place] [address] Dr. Abigail Flores Hematocrit (Bld) [Volume fraction] 49.5 % Normal 42.0-54.0 [facility] Comment on above: Performed By: #### C BC #### [facility] [address] [place] [address] Dr. Abigail Flores Hemoglobin (Bld) [Mass/Vol] 16.6 g/dL Normal 14.0-18.0 [facility] Comment on above: Performed By: #### C BC #### [facility] [address] [place] [address] Dr. Abigail Flores IG # 0.03 10e3/ul Normal 0.00-0.03 [facility] Comment on above: Performed By: #### C BC #### [facility] [address] [place] [address] Dr. Abigail Flores IG % 0.4 % Normal 0.0-0.5 [facility] Comment on above: Performed By: #### C BC #### [facility] [address] [place] [address] Dr. Abigail Flores LYMPH # 3.3 103/ul Normal 1.2-3.8 [facility] Comment on above: Performed By: #### C BC #### [facility] [address] [place] [address] Dr. Abigail Flores Lymphocytes/100 WBC (Bld) 41.5 % Normal 20.5-60.0 [facility] Comment on above: Performed By: #### C BC #### [facility] [address] [place] [address] Dr. Abigail Flores MANUAL DIFF REQ NO Normal [facility] Comment on above: Performed By: #### C BC #### [facility] [address] [address] [address] Abigail Flores MCH (RBC) [Entitic mass] 29.0 pg Normal 25.9-34.0 [facility] Comment on above: Performed By: #### C BC #### [facility] [address] [address] [address] Abigail Flores MCHC (RBC) [Mass/Vol] 33.5 g/dL Normal 29.9-35.2 [facility] Comment on above: Performed By: #### C BC #### [facility] [address] [place] [address] Dr. Abigail Flores MCV (RBC) [Entitic vol] 86.5 fL Normal 80.0-94.0 [facility] Comment on above: Performed By: #### C BC #### [facility] [address] [place] [address] Dr. Abigail Flores MONO # 0.5 103/ul Normal 0.3-0.8 [facility] Comment on above: Performed By: #### C BC #### [facility] [address] [place] [address] Dr. Abigail Flores Monocytes/100 WBC (Bld) 5.9 % Normal 1.7-12.0 [facility] Comment on above: Performed By: #### C BC #### [facility] [address] [place] [address] Dr. Aibgail Flores NEUT # 3.8 103/ul Normal 1.4-6.5 [facility] Comment on above: Performed By: #### C BC #### [facility] [address] [place] [address] Dr. Abigail Flores Neutrophils/100 WBC (Bld) 47.9 % Normal 43.0-75.0 [facility] Comment on above: Performed By: #### C BC #### [facility] [address] [place] [address] Dr. Abigail Flores Platelet mean volume (Bld) [Entitic vol] 9.9 fL Normal 9.5-13.5 [facility] Comment on above: Performed By: #### C BC #### [facility] [address] [address] [address] Abigail Flores PLT 217 103/ul Normal 150-450 [facility] Comment on above: Performed By: #### C BC #### [facility] [address] [place] [address] Dr. Abigail Flores RBC 5.72 106/ul Normal 4.70-6.10 [facility] Comment on above: Performed By: #### C BC #### [facility] [address] [address] [address] Abigail Flores WBC 8.0 103/ul Normal 4.0-11.0 [facility] Comment on above: Performed By: #### C BC #### [facility] [address] [place] [address] Dr. Abigail Flores PROF 14(COMP METB)on 022 Albumin [Mass/Vol] 3.8 g/dL Normal 3.5-5.0 [facility] Comment on above: Performed By: #### C MADM, CMP #### [facility] [address] [place] [address] Dr. Abigail Flores Albumin/Globulin [Mass ratio] 1.0 {ratio} Normal [facility] Comment on above: Performed By: #### C MADM, CMP #### [facility] [address] [place] [address] Dr. Abigail Flores ALP [Catalytic activity/Vol] 113 U/L Normal 38-126 [facility] Comment on above: Performed By: #### C MADM, CMP #### [facility] [address] [address] [address] Abigail Flores ALT [Catalytic activity/Vol] 35 U/L Normal 21-72 [facility] Comment on above: Performed By: #### C MADM, CMP #### [facility] [address] [place] [address] Dr. Abigail Flores Anion gap [Moles/Vol] 15.0 mmol/L Normal [facility] Comment on above: Performed By: #### C MADM, CMP #### [facility] [address] [address] [address] Abigail Flores AST [Catalytic activity/Vol] 8 U/L Critically low 17-59 [facility] Comment on above: Performed By: #### C MADM, CMP #### [facility] [address] [address] [address] Abigail Flores Bilirubin [Mass/Vol] 0.5 mg/dL Normal 0.2-1.3 [facility] Comment on above: Performed By: #### C MADM, CMP #### [facility] [address] [address] [address] Abigail Flores Calcium [Mass/Vol] 9.2 mg/dL Normal 8.4-10.2 [facility] Comment on above: Performed By: #### C MADM, CMP #### [facility] [address] [place] [address] Dr. Abigail Flores Chloride [Moles/Vol] 100 mmol/L Normal 98-107 [facility] Comment on above: Performed By: #### C MADM, CMP #### [facility] [address] [address] [address] Abigail Flores CO2 [Moles/Vol] 25.2 mmol/L Normal 22.0-30.0 [facility] Comment on above: Performed By: #### C MADM, CMP #### [facility] [address] [address] [address] Abigail Flores Creatinine [Mass/Vol] 0.98 mg/dL Normal 0.66-1.25 [facility] Comment on above: Performed By: #### C MADM, CMP #### [facility] [address] [place] [address] Dr. Abigail Flores EGFR-AF TRISTANIAN >60 Normal >=60 [facility] Comment on above: Performed By: #### C MADM, CMP #### [facility] [address] [address] [address] Abigail Flores EGFR-NON AF TRISTANIAN >60 Normal >=60 [facility] Comment on above: Performed By: #### C MADM, CMP #### [facility] [address] [address] [address] Abigail Flores Globulin (S) [Mass/Vol] 3.7 g/dL Normal [facility] Comment on above: Performed By: #### C MADM, CMP #### [facility] [address] [address] [address] Abigail Flores Glucose [Mass/Vol] 350 mg/dL Critically high 74-106 [facility] Comment on above: Performed By: #### C MADM, CMP #### [facility] [address] [address] [address] Abigail Flores Potassium [Moles/Vol] 4.2 mmol/L Normal 3.4-5.0 [facility] Comment on above: Performed By: #### C MADM, CMP #### [facility] [address] [place] [address] Dr. Abigail Flores Protein [Mass/Vol] 7.5 g/dL Normal 6.1-8.2 [facility] Comment on above: Performed By: #### C MADM, CMP #### [facility] [address] [place] [address] Dr. Abigail Flores Sodium [Moles/Vol] 136 mmol/L Critically low 137-145 [facility] Comment on above: Performed By: #### C MADM, CMP #### [facility] [address] [place] [address] Dr. Abigail Flores Urea nitrogen [Mass/Vol] 16.0 mg/dL Normal 9.0-20.0 [facility] Comment on above: Performed By: #### C MADM, CMP #### [facility] [address] [place] [address] Dr. Abigail Flores Urea nitrogen/Creatinine [Mass ratio] 16.3 mg/mg Normal [facility] Comment on above: Performed By: #### C MADM, CMP #### [facility] [address] [place] [address] Dr. Abigail Flores XR CHEST 1 Von [...] by: PATI SUAREZ Date: 2021-08-16 02:53 Normal [facility] Vital Signs Date Time Vital Sign Value Performing Clinician Thuani devonte 02-27-2025 08:46-0400 Body height 177.8 cm Shun Escalona MD Work Phone: [facility] 02-27-2025 08:46-0400 Body mass index (BMI) [Ratio] 32.28 kg/m2 Shun Escalona MD Work Phone: [facility] 02-27-2025 08:46-0400 Body temperature 95.7 [degF] Shun Escalona MD Work Phone: [facility] 02-27-2025 08:46-0400 Body weight 102.06 kg Shun Escalona MD Work Phone: [facility] 02-27-2025 08:46-0400 Diastolic blood pressure 88 mm[Hg] Shun Escalona MD Work Phone: [facility] 02-27-2025 08:46-0400 Heart rate 92 /min Shun Escalona MD Work Phone: [facility] 02-27-2025 08:46-0400 Respiratory rate 18 /min Shun Escalona MD Work Phone: [facility] 02-27-2025 08:46-0400 SaO2% (BldA) [Mass fraction] 98 % Shun Escalona MD Work Phone: [facility] 02-27-2025 08:46-0400 Systolic blood pressure 146 mm[Hg] Shun Escalona MD Work Phone: [facility] 12-18-2024 09:57-0400 Body height 177.8 cm Shun Escalona MD Work Phone: [facility] 12-18-2024 09:57-0400 Body mass index (BMI) [Ratio] 32.71 kg/m2 Shun Escalona MD Work Phone: [facility] 12-18-2024 09:57-0400 Body temperature 97.5 [degF] Shun Escalona MD Work Phone: [facility] 12-18-2024 09:57-0400 Body weight 103.42 kg Shun Escalona MD Work Phone: [facility] 12-18-2024 09:57-0400 Diastolic blood pressure 78 mm[Hg] Shun Escalona MD Work Phone: [facility] 12-18-2024 09:57-0400 Heart rate 88 /min hSun Escalona MD Work Phone: [facility] 12-18-2024 09:57-0400 Respiratory rate 18 /min Shun Escalona MD Work Phone: [facility] 12-18-2024 09:57-0400 SaO2% (BldA) [Mass fraction] 98 % Shun Escalona MD Work Phone: [facility] 12-18-2024 09:57-0400 Systolic blood pressure 126 mm[Hg] Shun Escalona MD Work Phone: [facility] 09-18-2024 10:09-0500 Body height 177.8 cm Shun Escalona MD Work Phone: [facility] 09-18-2024 10:09-0500 Body mass index (BMI) [Ratio] 32.43 kg/m2 Shun Escalona MD Work Phone: [facility] 09-18-2024 10:09-0500 Body temperature 97.5 [degF] Shun Escalona MD Work Phone: [facility] 09-18-2024 10:09-0500 Body weight 102.51 kg Shun Escalona MD Work Phone: [facility] 09-18-2024 10:09-0500 Diastolic blood pressure 70 mm[Hg] Shun Escalona MD Work Phone: [facility] 09-18-2024 10:09-0500 Heart rate 104 /min Shun Escalona MD Work Phone: [facility] 09-18-2024 10:09-0500 Respiratory rate 18 /min Shun Escalona MD Work Phone: [facility] 09-18-2024 10:09-0500 SaO2% (BldA) [Mass fraction] 98 % Shun Escalona MD Work Phone: [facility] 09-18-2024 10:09-0500 Systolic blood pressure 144 mm[Hg] Shun Escalona MD Work Phone: [facility] 07-18-2024 10:37-0500 Body height 180.3 cm Shun Escalona MD Work Phone: [facility] 07-18-2024 10:37-0500 Body mass index (BMI) [Ratio] 31.66 kg/m2 Shun Escalona MD Work Phone: [facility] 07-18-2024 10:37-0500 Body temperature 96.21 [degF] Shun Escalona MD Work Phone: [facility] 07-18-2024 10:37-0500 Body weight 102.97 kg Shun Escalona MD Work Phone: [facility] 07-18-2024 10:37-0500 Diastolic blood pressure 80 mm[Hg] Shun Escalona MD Work Phone: [facility] 07-18-2024 10:37-0500 Heart rate 91 /min Shun Escalona MD Work Phone: [facility] 07-18-2024 10:37-0500 Respiratory rate 18 /min Shun Escalona MD Work Phone: [facility] 07-18-2024 10:37-0500 SaO2% (BldA) [Mass fraction] 99 % Shun Escalona MD Work Phone: [facility] 07-18-2024 10:37-0500 Systolic blood pressure 134 mm[Hg] Shun Escalona MD Work Phone: [facility] 05-24-2024 09:16-0400 Body height 177.8 cm Shun Escalona MD Work Phone: [facility] 05-24-2024 09:16-0400 Body mass index (BMI) [Ratio] 33 kg/m2 Shun Escalona MD Work Phone: [facility] 05-24-2024 09:16-0400 Body temperature 97.81 [degF] Shun Escalona MD Work Phone: [facility] 05-24-2024 09:16-0400 Body weight 104.33 kg Shun Esaclona MD Work Phone: [facility] 05-24-2024 09:16-0400 Diastolic blood pressure 82 mm[Hg] Shun Escalona MD Work Phone: [facility] 05-24-2024 09:16-0400 Heart rate 94 /min Shun Escalona MD Work Phone: [facility] 05-24-2024 09:16-0400 Respiratory rate 18 /min Shun Escalona MD Work Phone: [facility] 05-24-2024 09:16-0400 SaO2% (BldA) [Mass fraction] 95 % Shun Escalona MD Work Phone: [facility] 05-24-2024 09:16-0400 Systolic blood pressure 136 mm[Hg] Shun Escalona MD Work Phone: [facility] Encounters Encounter Date Encounter Type Care Provider Facility Start: 03-14-2025 End: 03-14-2025 ambulatory Edna Coronel [facility] Comment on above: Internal derangement of left shoulder (Primary Dx); Injury of left rotator cuff, subsequent encounter Start: 03-14-2025 End: 03-14-2025 Bamboo flowsheet Edna Coronel [facility] Start: 03-14-2025 End: 03-14-2025 Bamboo flowsheet Edna Coronel [facility] Start: 03-12-2025 End: 03-12-2025 ambulatory Vicki Pickard [facility] Comment on above: Internal derangement of left shoulder (Primary Dx); Injury of left rotator cuff, subsequent encounter Start: 03-12-2025 End: 03-12-2025 Bamboo flowsheet Vicki Pickard [facility] Start: 03-12-2025 End: 03-12-2025 Bamboo flowsheet Vicki Pickard [facility] Start: 03-11-2025 End: 03-11-2025 Brenda Escalona MD Work Phone: [facility] Comment on above: 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 discogenic back pain and lower extremity pain Start: 03-07-2025 End: 03-07-2025 ambulatory Vicki Pickard [facility] Comment on above: Internal derangement of left shoulder (Primary Dx); Injury of left rotator cuff, subsequent encounter Start: 03-07-2025 End: 03-07-2025 Bamboo flowsheet Vicki Pickard [facility] Start: 03-07-2025 End: 03-07-2025 Bamboo flowsheet Vicki Pickard [facility] Start: 03-06-2025 End: 03-06-2025 Office outpatient new 45 minutes Jocelynn CEJA Work Phone: [facility] Comment on above: Acute pain of left s houlder (Primary Dx); Internal derangement of left shoulder; Injury of left rotator cuff, subsequent encounter Start: 03-06-2025 End: 03-06-2025 ambulatory JOCELYNN SKAGGS Not Available Start: 03-05-2025 End: 03-05-2025 ambulatory Vicki Pickard [facility] Comment on above: Internal derangement of left shoulder (Primary Dx); Injury of left rotator cuff, subsequent encounter Start: 03-05-2025 End: 03-05-2025 Bamboo flowsheet Vicki Pickard [facility] Start: 03-05-2025 End: 03-05-2025 Bamboo flowsheet Vicki Pickard [facility] Start: 03-01-2025 End: 03-01-2025 Bamboo flowsheet Ricky Farley PT [facility] Start: 03-01-2025 End: 03-01-2025 Bamboo flowsheet Ricky Farley PT [facility] Start: 03-01-2025 End: 03-01-2025 ambulatory Ricky Farley PT [facility] Comment on above: Internal derangement of left shoulder; Injury of left rotator cuff, subsequent encounter Start: 02-27-2025 End: 02-27-2025 Bamboo flowsheet Shun Escalona MD Work Phone: [facility] Start: 02-27-2025 End: 02-27-2025 Bamboo flowsheet Shun Escalona MD Work Phone: [facility] Start: 02-27-2025 End: 02-27-2025 Office outpatient visit 25 minutes Shun Escalona MD Work Phone: [facility] Comment on above: Internal derangement of left shoulder (Primary Dx); Injury of left rotator cuff, subsequent encounter Start: 02-27-2025 End: 02-27-2025 ambulatory SHUN ESCALONA Not Available Start: 02-25-2025 End: 02-25-2025 Refill Shun Escalona MD Work Phone: [facility] Comment on above: 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 discogenic back pain and lower extremity pain Start: 01-30-2025 End: 01-30-2025 Refill Shun Escalona MD Work Phone: [facility] Comment on above: 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 discogenic back pain and lower extremity pain Start: 12-18-2024 End: 12-18-2024 Bamboo flowsheet Shun Escalona MD Work Phone: [facility] Start: 12-18-2024 End: 12-18-2024 Bamboo flowsheet Shun Escalona MD Work Phone: [facility] Start: 12-18-2024 End: 12-18-2024 Office outpatient visit 25 minutes Shun Escalona MD Work Phone: [facility] Comment on above: Type 2 diabetes [...] 12-05-2024 Refill Shun Escalona MD Work Phone: [facility] Comment on above: 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 discogenic back pain and lower extremity pain Start: 11-07-2024 End: 11-07-2024 Refill Shun Escalona MD Work Phone: [facility] Comment on above: 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 discogenic back pain and lower extremity pain Start: 10-18-2024 End: 10-18-2024 Clinisync Result Encounter Shun Escalona MD Work Phone: [facility] External Department Unsolicited Start: 10-18-2024 End: 10-18-2024 Clinisync Result Encounter Shun Escalona MD Work Phone: [facility] External Department Unsolicited Start: 10-09-2024 End: 10-09-2024 Refill Shun Escalona MD Work Phone: [facility] Comment on above: 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 discogenic back pain and lower extremity pain Start: 10-02-2024 End: 10-02-2024 Orders Only Shun Escalona MD Work Phone: [facility] Comment on above: 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 discogenic back pain and lower extremity pain Start: 09-18-2024 End: 09-18-2024 Bamboo flowsheet Shun Escalona MD Work Phone: [facility] Start: 09-18-2024 End: 09-18-2024 Bamboo flowsheet Shun Escalona MD Work Phone: [facility] Start: 09-18-2024 End: 09-18-2024 Office outpatient visit 25 minutes Shun Escalona MD Work Phone: [facility] Comment on above: Type 2 diabetes yoav [...] 09-10-2024 Refill Shun Escalona MD Work Phone: [facility] Comment on above: 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 discogenic back pain and lower extremity pain Start: 08-19-2024 End: 08-20-2024 Refill Shun Escalona MD Work Phone: [facility] Comment on above: 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 discogenic back pain and lower extremity pain Start: 07-31-2024 End: 07-31-2024 Refill Shun Escalona MD Work Phone: [facility] Comment on above: Degeneration of inte rvertebral [...] [facility] Start: 05-24-2024 End: 05-24-2024 Bamboo [...] encounter procedure Shun Escalona MD Work Phone: [facility] Start: 03-19-2024 End: 03-19-2024 ambulatory SHUN ESCALONA [...] 12-10-2026 Glaucoma screening Diabetes: R etinopathy Screening [facility] Start: 10-18-2025 Urine screening for protein Diabetes: Urine Protein Screening [facility] Start: 04-20-2025 Hemoglobin A1c measurement Diabetes: Hemoglobin A1C [facility] Start: 04-15-2025 Influenza vaccination [facility] Start: 04-10-2025 End: 04-10-2025 Patient encounter procedure [facility] Start: 04-08-2025 End: 04-08-2025 ambulatory 04/08/2025 4:00 PM EDT Treatment [facility] [address] [place] [address] Ricky Farley, PT [facility] Start: 04-08-2025 End: 04-08-2025 Patient encounter procedure 04/08/2025 11:30 AM EDT Office Visit [facility] [address] [place] [address] Shun Escalona MD [address] [place] [phone] [facility] Start: 04-04-2025 End: 04-04-2025 ambulatory 04/04/2025 4:00 PM EDT Treatment [facility] [address] [place] [address] Edna Coronel [place] Start: 04-02-2025 End: 04-02-2025 ambulatory 04/02/2025 4:00 PM EDT Treatment [facility] [address] [facility] [address] [place] [address] Edna Coronel PTA [facility] Start: 03-26-2025 End: 03-26-2025 ambulatory 03/26/2025 4:00 PM EDT Treatment [facility] [address] [facility] [address] [place] [address] Vicki Pickard PTA [facility] Start: 03-20-2025 End: 03-20-2025 Patient encounter procedure 03/20/2025 9:30 AM EDT Office Visit [facility] [address] [place] [address] Shun Escalona MD [address] [place] [address] [facility] Start: 03-19-2025 End: 03-19-2025 ambulatory 03/19/2025 4:00 PM EDT Treatment [facility] [address] [facility] [address] [place] [address] Edna Coronel PTA [facility] Start: 03-14-2025 End: 03-14-2025 ambulatory [facility] Comment on above: Internal derangement of left shoulder (Primary Dx); Injury of left rotator cuff, subsequent encounter Start: 03-12-2025 End: 03-12-2025 ambulatory [facility] Comment on above: Arrived Start: 03-07-2025 End: 03-07-2025 ambulatory [facility] Comment on above: Arrived Start: 03-06-2025 End: 03-06-2025 Patient encounter procedure 03/06/2025 10:00 AM EDT Office Visit [facility] [address] [place] [address] Jocelynn Skaggs PA [address] [place] [address] [facility] Start: 03-05-2025 End: 03-05-2025 ambulatory [facility] Comment on above: Arrived Start: 03-01-2025 End: 03-01-2025 ambulatory 03/01/2025 9:30 AM EDT Evaluation [facility] [address] [place] [address] Ricky Farley, PT Internal derangement of left shoulder; Injury of left rotator cuff, subsequent encounter [facility] Comment on above: Internal derangement of left shoulder; Injury of left rotator cuff, subsequent encounter Start: 02-27-2025 End: 02-27-2026 MR Shoulder - left WO contrast MR shoulder left wo IV contrast Imaging Routine Internal derangement of left shoulder Injury of left rotator cuff, subsequent encounter Expected: 02/27/2025, Expires: 02/27/2026 [facility] Work Phone: Comment on above: Expected: 02/27/2025 , Expires: 02/27/2026 Start: 02-27-2025 End: 02-27-2025 Patient encounter procedure [facility] Comment on above: Arrived Start: 12-22-2024 Screening for malignant neoplasm of colon [facility] Start: 12-18-2024 End: 12-18-2025 Hemoglobin A1c/Hemoglobin.total in Blood Hemoglobin A1c Lab Routine Type 2 diabetes mellitus with hyperglycemia, without long-term current use of insulin ([facility]) Expected: 12/18/2024 (Approximate), Expires: 12/18/2025 [facility] Work Phone: Comment on above: Expected: 12/18/2024 (Approximate), Expires: 12/18/2025 Start: 12-18-2024 End: 12-18-2024 Patient encounter procedure [facility] Comment on above: Arrived Start: 09-18-2024 End: 09-18-2024 Patient encounter procedure [facility] Comment on above: Arrived Start: 07-18-2024 End: 07-18-2024 Patient encounter procedure 07/18/2024 10:45 AM EST Office Visit [facility] [address] [place] [address] Shun Escalona MD [address] [place] [phone] Arrived [facility] Comment on above: Arrived Start: 07-06-2024 End: 07-06-2024 Patient encounter procedure 07/06/2024 10:00 AM EST Office Visit [facility] [address] [place] [address] Shun Escalona MD [address] [place] [phone] [facility] Start: 05-24-2024 End: 05-24-2024 Patient encounter procedure 05/24/2024 9:15 AM EDT Office Visit [facility] [address] [place] [address] Shun Escalona MD [address] [place] [address] Arrived [facility] Comment on above: Arrived Start: 04-15-2024 Influenza vaccination Influenza Vacc ine (#1) [facility] Start: 1995 Urine screening for protein Diabetes: Urine Protein Screening [facility] Start: 1986 Glaucoma screening Diabetes: R etinopathy Screening [facility] Start: 1976 Hemoglobin A1c measurement Diabetes: Hemoglobin A1C [facility] Start: 1976 Screening for malignant neoplasm of colon [facility] Payers Date Payer Category Payer Medicaid [id number] 1976 Unknown [id number] 2.16.84 [id number] 1976 Unknown [id number] 2.16.84 [id number] 1976 Unknown [id number] 2.16.84 [id number] 1976 Unknown [id number] 2.16.84 [id number] 1976 Unknown [id number] 2.16.8 [id number] 1976 Unknown [id number] 2.16.8 [id number] 1976 Unknown [id number] 2.16.8 [id number] 1976 Unknown [id number] 2.16.8 [id number] 1976 Unknown [id number] 2.16.8 [id number] 1976 Unknown [id number] 2.16.8 [id number] 1976 Unknown [id number] 2.16.84 [id number] 1976 Unknown [id number] 2.16.84 [id number] 1976 Unknown [id number] 2.16.84 [id number] 1976 Unknown [id number] 2.16.84 [id number] 1959 Unknown [id number] Social History Date Type Detail Facility Start: 03-19-2024 Tobacco smoking status [facility] Ex-smoke r [facility] Start: 08-15-2014 End: 08-15-1999 History [...] to any clubs or organizations such as restorationism groups, unions, fraternal [...] each by In Vit ro route Daily [id number] Start: 03-19-2024 1 each Daily [id number] Start: 03-19-2024 Clinical Notes 05-24-2024 to 03-06-2025 BRENNA Aaron - 03/06/2025 10:00 AM Rivera Escalona MD - 02/27/2025 9:12 AM Rivera Escalona MD - 02/27/2025 8:30 AM Rivera Escalona MD - 12/18/2024 10:37 AM EDT Note Date & Type Note Facility 03-06-2025 History of Presen t illness Narrative Images from the original note were not [...] CRUNCHING - LIMITED ROM- DIFFICULTY RAISING ABOVE SHOULDER LEVEL- PT TRIES NOT TO USE LT ARM [...] Procedures Results - Imaging: - X-ray from [place] shows no acute bony process or significant [...] the findings on the MRI. X-ray from [place] reviewed showing no acute bony process and no significant degenerative changes. Treatment plan: Medrol Dosepak prescribed with a discussion of risks and benefits. Physical therapy will be attempted. Clinical decision making: Surgical and [...] requiring urgent evaluation. Visit was preformed using [employer] speech recognition. documented in this encounter [facility] 02-27-2025 History of Presen t illness Narrative Associated Problem(s): Internal derangement of left shoulder Pain and weakness indicating likely rotator cuff injury or tear. Check MRI shoulder. Start PT and refer to ortho. Images from the original note were not included. Subjective Patient ID: Jay Tapia is a 49 y.o. male who presents for Follow-up (LEFT SHOULDER PAIN). ER follow up from 02/03 for left shoulder pain. No specific fall, injury, or trauma. C/o pain for weeks. Decreased ROM and not able to fully raise arm. Severe pain with movement or lifting. Starting to notice weak trust manager and hard time with trust manager. Right-handed. No prior shoulder injury. In ER x-ray negative. Given voltaren and not much relief. Side sleeper and not able to sleep on left side. No improvement in pain since onset. Review of Systems Constitutional: Negative for fatigue. [...] rebound. Musculoskeletal: Left lower leg: No edema. Comments: Left shoulder: Decreased ROM and not able to forward flex or abduct past 90 degrees due to pain. Severe weakness with internal rotation at 2/5, 5/5 with external rotation. Positive empty can sign. Neurological: Mental Status: He is alert. Assessment/Plan Problem List Items Addressed This Visit Internal derangement of left shoulder - Primary Pain and weakness indicating likely rotator cuff injury or tear. Check MRI shoulder. Start PT and refer to ortho. Relevant Orders MR shoulder left wo IV contrast Ambulatory referral to Physical Therapy Ambulatory referral to Orthopaedic Surgery Injury of left rotator cuff Relevant Orders MR shoulder left wo IV contrast Ambulatory referral to Physical Therapy Ambulatory referral to Orthopaedic Surgery documented in this encounter [facility] 12-18-2024 History of Presen t illness Narrative [...] paxil and continue. documented in this encounter [facility] 09-18-2024 History of Presen t illness [...] paxil and continue. documented in this encounter [facility] 07-31-2024 Telephone encount er Note [facility] 07-31-2024 Miscellaneous Notes Formattin g of this note might be different from the original. documented in this encounter [facility] 07-18-2024 History of Presen t illness [...] 20 MG tablet documented in this encounter [facility] 05-24-2024 History of Presen t illness [...] capsule tiZANidine (Zanaflex) 4 MG tablet HYDROcodone-acetaminophen (Rayne) 5-325 MG tablet Generalized anxiety disorder (CMS/HCC) [...] 10 MG tablet documented in this encounter [facility] Evaluation note Diagnosis Type 2 diabetes [...] general medical examination at a health care [facility] Type 2 diabetes mellitus with [...] Generalized anxiety disorder documented in this encounter [facility]* Diagnosis Type 2 diabetes mellitus [...] exam Routine general medical examination at a [facility] care facility Type 2 diabetes mellitus [...] lower extremity pain documented in this encounter [facility]* Diagnosis Type 2 diabetes mellitus [...] exam Routine general medical examination at a [facility] care [facility] Type 2 diabetes mellitus with [...] lower extremity pain documented in this encounter [facility]* Diagnosis Type 2 diabetes mellitus [...] lower extremity pain documented in this encounter [facility]* Diagnosis Type 2 diabetes mellitus [...] lower extremity pain documented in this encounter [facility]* Diagnosis Type 2 diabetes mellitus [...] hyperglycemia, without long-term current use of insulin ([facility])- Primary Essential hypertension, benign Essential hypertension, benign 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 pain MDD (major depressive disorder), recurrent episode, moderate (HCC) Generalized anxiety disorder Generalized anxiety disorder Type 2 diabetes mellitus with hyperglycemia, without long-term current use of insulin ([facility])- Primary Essential hypertension, benign Essential hypertension, benign 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 pain MDD (major depressive disorder), recurrent episode, moderate (HCC) Generalized anxiety disorder Generalized anxiety disorder Internal derangement of left shoulder- Primary Injury of left rotator cuff, subsequent encounter documented in this encounter [facility] [...] (HCC) Generalized anxiety disorder Generalized anxiety disorder Internal derangement of left shoulder- Primary Injury of left rotator cuff, subsequent encounter Internal derangement of left shoulder Injury of left rotator cuff, subsequent encounter documented in this encounter [facility]* Diagnosis Type 2 diabetes mellitus [...] hyperglycemia, without long-term current use of insulin ([facility])- Primary Essential hypertension, benign Essential hypertension, benign 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 pain MDD (major depressive disorder), recurrent episode, moderate (HCC) Generalized anxiety disorder Generalized anxiety disorder Internal derangement of left shoulder- Primary Injury of left rotator cuff, subsequent encounter Internal derangement of left shoulder- Primary Injury of left rotator cuff, subsequent encounter Acute pain of left shoulder- Primary documented in this encounter [facility]* Diagnosis Type 2 diabetes mellitus with hyperglycemia, without long-term current use of insulin ([facility])- Primary Essential hypertension, benign Essential hypertension, benign [...] hyperglycemia, without long-term current use of insulin ([facility])- Primary Essential hypertension, benign Essential hypertension, benign [...] hyperglycemia, without long-term current use of insulin ([facility])- Primary Essential hypertension, benign Essential hypertension, benign 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 pain MDD (major depressive disorder), recurrent episode, moderate (HCC) Generalized anxiety disorder Generalized anxiety disorder Internal derangement of left shoulder- Primary Injury of left rotator cuff, subsequent encounter Acute pain of left shoulder- Primary Internal derangement of left shoulder Injury of left rotator cuff, subsequent encounter documented in this encounter [facility] Diagnosis Type 2 diabetes mellitus with hyperglycemia, without long-term current use of insulin ([facility])- Primary Essential hypertension, benign Essential hypertension, benign [...] hyperglycemia, without long-term current use of insulin ([facility])- Primary Essential hypertension, benign Essential hypertension, benign MDD (major depressive disorder), recurrent episode, moderate (HCC) Generalized anxiety disorder Generalized anxiety disorder 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 pain Type 2 diabetes mellitus with hyperglycemia, without long-term current use of insulin ([facility])- Primary Essential hypertension, benign Essential hypertension, benign 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 pain MDD (major depressive disorder), recurrent episode, moderate (HCC) Generalized anxiety disorder Generalized anxiety disorder Type 2 diabetes mellitus with hyperglycemia, without long-term current use of insulin ([facility])- Primary Essential hypertension, benign Essential hypertension, benign 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 pain MDD (major depressive disorder), recurrent episode, moderate (HCC) Generalized anxiety disorder Generalized anxiety disorder Type 2 diabetes mellitus with hyperglycemia, without long-term current use of insulin ([facility])- Primary Essential hypertension, benign Essential hypertension, benign 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 pain MDD (major depressive disorder), recurrent episode, moderate (HCC) Generalized anxiety disorder Generalized anxiety disorder Internal derangement of left shoulder- Primary Injury of left rotator cuff, subsequent encounter Internal derangement of left shoulder- Primary Injury of left rotator cuff, subsequent encounter documented in [facility] encounter [facility] [...] (HCC) Generalized anxiety disorder Generalized anxiety disorder Internal derangement of left shoulder- Primary Injury of left rotator cuff, subsequent encounter Degeneration of intervertebral disc of lumbar region [...] (HCC) Generalized anxiety disorder Generalized anxiety disorder Internal derangement of left shoulder- Primary Injury of left rotator cuff, subsequent encounter Internal derangement of left shoulder- Primary Injury of left rotator cuff, subsequent encounter documented in this encounter [facility]* Diagnosis Type 2 diabetes mellitus [...] (HCC) Generalized anxiety disorder Generalized anxiety disorder Internal derangement of left shoulder- Primary Injury of left rotator cuff, subsequent encounter Internal derangement of left shoulder- Primary Injury of left rotator cuff, subsequent encounter documented in this encounter [facility] for visit Narrative* Rehabilitation - Outpatient (Routine) - Authorized Specialty Diagnoses / Procedures Referred By Yecenia omlina Referred To Contact Physical Therapy Diagnoses Internal derangement of left shoulder Injury of left rotator cuff, subsequent encounter Procedures [place] OFFICE/OUTPATIENT NEW HIGH MDM 60 MINUTES Shun Escalona MD [address] [place] [address] Phone: tel: fax: Ricky Farley, DUANE Referral ID Status Reason Start Date Expiration Date Visits Requested Visits Authorized [id number] Authorized Specialty Services Required 02/27/2025 08/26/2025 30 30 [facility] for visit Narrative* Rehabilitation - Outpatient (Routine) - Authorized Specialty Diagnoses / Procedures Referred By Yecenia molina Referred To Contact Physical Therapy Diagnoses Internal derangement of left shoulder Injury of left rotator cuff, subsequent encounter Procedures [place] OFFICE/OUTPATIENT NEW HIGH MDM 60 MINUTES Shun Escalona MD [address] [place] [address] Phone: tel: fax: Ricky Farley, DUANE Referral ID Status Reason Start Date Expiration Date Visits Requested Visits Authorized [id number] Authorized Specialty Services Required 02/27/2025 08/14/2025 30 30 [facility] Summary Purpose Family History No Family History Records FoundNo Family History Records Found Advance Directives No Advanced Directives Records FoundNo Advanced Directives Records Found Additional Source Comments (unrecognized sect ion and content) No Status Records FoundNo Status Records Found INFORMATION SOURCE (unrecogn ized section and content) DATE CREATED AUTHOR 06/06/2022 [facility] DATE CREATED AUTHOR AUTHOR'S ORGANIZ ATION 03/14/2025 [facility] EPIC Care Teams (unrecognized sec tion and content) Supply Room Clerk Relationship Specialty Start Date End Date Shun Escalona MD [address] [place] [address] PCP - General Family Medicine 03/19/24 Supply Room Clerk Relationship Specialty Start Date End Date Shun Escalona MD [address] [place] [address] PCP - General Family Medicine 03/19/24 Supply Room Clerk Relationship Specialty Start Date End Date Shun Escalona MD [address] [place] [address] PCP - General Family Medicine 03/19/24 Supply Room Clerk Relationship Specialty Start Date End Date Shun Escalona MD [address] [place] [address] PCP - General Family Medicine 03/19/24 Supply Room Clerk Relationship Specialty Start Date End Date Shun Escalona MD [address] [place] [address] PCP - General Family Medicine 03/19/24 Supply Room Clerk Relationship Specialty Start Date End Date Shun Escalona MD [address] [place] [address] PCP - General Family Medicine 03/19/24 Supply Room Clerk Relationship Specialty Start Date End Date Shun Escalona MD [address] [place] [address] PCP - General Family Medicine 03/19/24 Supply Room Clerk Relationship Specialty Start Date End Date Shun Escalona MD [address] [place] [address] PCP - General Family Medicine 03/19/24 Supply Room Clerk Relationship Specialty Start Date End Date Shun Escalona MD [address] [place] [address] PCP - General Family Medicine 03/19/24 Supply Room Clerk Relationship Specialty Start Date End Date Shun Escalona MD [address] [place] [address] PCP - General Family Medicine 03/19/24 Supply Room Clerk Relationship Specialty Start Date End Date Shun Escalona MD [address] [place] [address] PCP - General Family Medicine 03/19/24 Supply Room Clerk Relationship Specialty Start Date End Date Shun Escalona MD [address] [place] [address] PCP - General Family Medicine 03/19/24 Supply Room Clerk Relationship Specialty Start Date End Date Shun Escalona MD [address] [place] [address] PCP - General Family Medicine 03/19/24 Supply Room Clerk Relationship Specialty Start Date End Date Shun Escalona MD [address] [place] [address] PCP - General Family Medicine 03/19/24 Supply Room Clerk Relationship Specialty Start Date End Date Shun Escalona MD [address] [place] [address] PCP - General Family Medicine 03/19/24 Supply Room Clerk Relationship Specialty Start Date End Date Shun Escalona MD [address] [place] [address] PCP - General Family Medicine 03/19/24 Supply Room Clerk Relationship Specialty Start Date End Date Shun Escalona MD [address] [place] [address] PCP - General Family Medicine 03/19/24 Supply Room Clerk Relationship Specialty Start Date End Date Shun Escalona MD [address] [place] [address] PCP - General Family Medicine 03/19/24 Jaja Yen NP [address] [place] [address] PCP - [facility] 11/13/2407/14/ 5 Supply Room Clerk Relationship Specialty Start Date End Date Shun Escalona MD [address] [place] [address] PCP - General Family Medicine 03/19/24 Jaja Yen, AIR QUALITY MANAGER [address] [facility] [address] PCP - [facility] [place] [facility] 11/13/24 5 Supply Room Clerk Relationship Specialty Start Date End Date Shun Escalona MD [address] [place] [address] PCP - General Family Medicine 03/19/24 Jaja Yen AIR QUALITY MANAGER [address] [place] [address] PCP - [facility] [place] [facility] 11/13/24 5 Supply Room Clerk Relationship Specialty Start Date End Date Shun Escalona MD [address] [place] [address] PCP - General Family Medicine 03/19/24 Jaja Yen, AIR QUALITY MANAGER [address] [place] [address] PCP - [facility] [place] [facility] 11/13/24 5 Supply Room Clerk Relationship Specialty Start Date End Date Shun Escalona MD [address] [place] [address] PCP - General Family Medicine 03/19/24 Jaja Yen, AIR QUALITY MANAGER [address] [place] [address] PCP - [facility] [place] [employer] 11/13/24 5 Reason for Visit (unrecogniz ed section and [...] Reason Onset Date Comments Med Refill 01/30/2025 Reason Onset Date Comments Med Refill 02/25/2025 Reason Comments Follow-up LEFT SHOULDER PAIN Reason Comments Pain Specialty Diagnoses / Procedures Referred By Yecenia molina Referred To Contact Orthopaedic Surgery Diagnoses Internal derangement of left shoulder Injury of left rotator cuff, subsequent encounter Shun Escalona MD [address] [place] [address] Phone: tel: fax: Jr. Jamie Frances, DO [address] [facility] [address] [place] [address] Phone: tel: fax: Referral ID Status Reason Start Date Expiration Date V isits Requested Visits Authorized [id number] Closed Specialty Services Required 02/27/2025 08/26/2025 1 1 Reason Onset Date Comments Med Refill 03/11/2025 FOR RECORDS PERTAINING TO PATIENTS WHO ARE [...] BE BASED ON THE PRIMARY CLINICAL RECORDS. [employer] provides no warranty or guarantee of the accuracy or completeness of information in this document.
== END 2025-03-15 10:01 | disposition home or self-care (01) ==
LOC: LAB 10:06
PROVIDERS: PCP Family Medicine; Visit Provider Family Medicine
DX: E11.65 Type 2 diabetes mellitus with hyperglycemia (principal)
CPT/HCPCS: 36415; 83036